=== PATIENT | male | born 1975 | race African-American/Black ===

== ENCOUNTER 2019-07-09 12:32 | Inpatient (IN) | payer OTHER ==
[2019-07-09] MEDS ORDERED: ACETAMINOPHEN TAB 500 MG TAB PO STA (12:56)
[2019-07-09] MEDS ORDERED: ALBUTEROL HFA INHALER INHALATION STA (12:56)
[2019-07-09] MEDS ORDERED: ACETAMINOPHEN TAB 500 MG TAB PO PRN (12:56)
--- NOTE | 2019-07-09 12:59 | ED ---
General Adult HPI - General Chief complaint: Shortness of Breath Stated complaint: SOB Time Seen by Provider: 07/09/19 12:38 Source: patient, RN notes reviewed Mode of arrival: ambulatory Limitations: no limitations - History of Present Illness Initial comments: Patient is a pleasant 43-year-old male presenting to the emergency Department with complaints of fatigue and chills and dyspnea. Onset of symptoms was yesterday. Patient states he was just released from nursing home and has been exposed to coronavirus. Patient states minimal cough. Patient does have history of asthma. Occasional wheeze. No leg pain or leg swelling. Patient feels somewhat achy throughout. - Related Data Home Medications Medication Instructions Recorded Confirmed No Known Home Medications 07/09/19 07/09/19 Allergies Allergy/AdvReac Type Severity Reaction Status Date / Time Penicillins Allergy Swelling Verified 07/09/19 14:00 Review of Systems ROS Statement: Those systems with pertinent positive or pertinent negative responses have been documented in the HPI. ROS Other: All systems not noted in ROS Statement are negative. Constitutional: Reports: as per HPI, fever, chills Eyes: Denies: eye pain ENT: Denies: ear pain Respiratory: Reports: as per HPI, cough, dyspnea Cardiovascular: Denies: chest pain Endocrine: Reports: fatigue Gastrointestinal: Denies: abdominal pain Genitourinary: Denies: dysuria Musculoskeletal: Denies: back pain Skin: Denies: rash Neurological: Denies: weakness Past Medical History Past Medical History: Asthma History of Any Multi-Drug Resistant Organisms: None Reported Additional Past Surgical History / Comment(s): dental surgery. Smoking Status: Former smoker Past Alcohol Use History: None Reported Past Drug Use History: None Reported General Exam Limitations: no limitations General appearance: alert Head exam: Present: normocephalic Eye exam: Present: normal appearance Neck exam: Present: normal inspection Respiratory exam: Present: normal lung sounds bilaterally Cardiovascular Exam: Present: tachycardia GI/Abdominal exam: Present: soft. Absent: tenderness Extremities exam: Present: normal inspection. Absent: pedal edema, calf tenderness Neurological exam: Present: alert Psychiatric exam: Present: normal affect, normal mood Skin exam: Present: normal color Course Vital Signs 07/09/19 07/09/19 07/09/19 12:33 14:34 15:48 Temperature 100.4 F H 100.1 F H Pulse Rate 125 H 122 H 113 H Respiratory 22 20 20 Rate Blood Pressure 137/93 110/76 158/90 O2 Sat by Pulse 93 L 94 L 90 L Oximetry 07/09/19 15:49 Temperature Pulse Rate Respiratory Rate Blood Pressure O2 Sat by Pulse 93 L Oximetry EKG Findings - EKG Comments: EKG Findings:: Sinus tachycardia 127. ND 144. QRS 76. QT really. QTC 447. Normal axis. Normal QRS. No acute ST change. Medical Decision Making - Medical Decision Making Patient tested negative for Coronavirus however clinically there is still some concern for this. Chest x-ray is suspicious for pneumonia without evidence on computed tomography scan. There is questionable pulmonary embolism on computed tomography scan which presents a clouded diagnostic pitcher. Case was discussed with Dr. Kumari on-call for [facility] who will admit for hospital call. Pulmonary will be consult at for further evaluation. Patiently placed on antibiotics and anticoagulation in the meantime. Patient is reevaluated and updated. Patient still is tachycardic with heart rate 122. Patient also still has increased respiratory rate. - Lab Data Result diagrams: 07/09/19 13:15 07/09/19 13:15 Lab Results 07/09/19 07/09/19 07/09/19 Range/Units 13:15 13:15 13:15 WBC 18.9 H (3.8-10.6) k/uL RBC 5.74 (4.30-5.90) m/uL Hgb 16.1 (13.0-17.5) gm/dL Hct 49.9 (39.0-53.0) % MCV 86.9 (80.0-100.0) fL MCH 28.1 (25.0-35.0) pg MCHC 32.3 (31.0-37.0) g/dL RDW 13.0 (11.5-15.5) % Plt Count 399 (150-450) k/uL Neutrophils % 88 % Lymphocytes % 5 % Monocytes % 3 % Eosinophils % 2 % Basophils % 0 % Neutrophils # 16.7 H (1.3-7.7) k/uL Lymphocytes # 0.9 L (1.0-4.8) k/uL Monocytes # 0.6 (0-1.0) k/uL Eosinophils # 0.5 (0-0.7) k/uL Basophils # 0.1 (0-0.2) k/uL PT 10.5 (9.0-12.0) sec INR 1.0 (<1.2) APTT 25.2 (22.0-30.0) sec D-Dimer 0.95 H (<0.60) mg/L FEU Sodium 139 (137-145) mmol/L Potassium 4.4 (3.5-5.1) mmol/L Chloride 101 (98-107) mmol/L Carbon Dioxide 29 (22-30) mmol/L Anion Gap 9 mmol/L BUN 9 (9-20) mg/dL Creatinine 1.03 (0.66-1.25) mg/dL Est GFR (CKD-EPI)AfAm >90 (>60 ml/min/1.73 sqM) Est GFR (CKD-EPI)NonAf 90 (>60 ml/min/1.73 sqM) Glucose 114 H (74-99) mg/dL Plasma Lactic Acid Masood (0.7-2.0) mmol/L Calcium 9.8 (8.4-10.2) mg/dL Magnesium 2.0 (1.6-2.3) mg/dL Total Bilirubin 1.0 (0.2-1.3) mg/dL AST 28 (17-59) U/L ALT 20 (4-49) U/L Alkaline Phosphatase 58 (38-126) U/L Lactate Dehydrogenase 567 (313-618) U/L C-Reactive Protein 33.0 H (<10.0) mg/L Total Protein 8.0 (6.3-8.2) g/dL Albumin 4.7 (3.5-5.0) g/dL Coronavirus (PCR) (Not Detectd) 07/09/19 07/09/19 Range/Units 13:15 13:15 WBC (3.8-10.6) k/uL RBC (4.30-5.90) m/uL Hgb (13.0-17.5) gm/dL Hct (39.0-53.0) % MCV (80.0-100.0) fL MCH (25.0-35.0) pg MCHC (31.0-37.0) g/dL RDW (11.5-15.5) % Plt Count (150-450) k/uL Neutrophils % % Lymphocytes % % Monocytes % % Eosinophils % % Basophils % % Neutrophils # (1.3-7.7) k/uL Lymphocytes # (1.0-4.8) k/uL Monocytes # (0-1.0) k/uL Eosinophils # (0-0.7) k/uL Basophils # (0-0.2) k/uL PT (9.0-12.0) sec INR (<1.2) APTT (22.0-30.0) sec D-Dimer (<0.60) mg/L FEU Sodium (137-145) mmol/L Potassium (3.5-5.1) mmol/L Chloride (98-107) mmol/L Carbon Dioxide (22-30) mmol/L Anion Gap mmol/L BUN (9-20) mg/dL Creatinine (0.66-1.25) mg/dL Est GFR (CKD-EPI)AfAm (>60 ml/min/1.73 sqM) Est GFR (CKD-EPI)NonAf (>60 ml/min/1.73 sqM) Glucose (74-99) mg/dL Plasma Lactic Acid Masood 1.7 (0.7-2.0) mmol/L Calcium (8.4-10.2) mg/dL Magnesium (1.6-2.3) mg/dL Total Bilirubin (0.2-1.3) mg/dL AST (17-59) U/L ALT (4-49) U/L Alkaline Phosphatase (38-126) U/L Lactate Dehydrogenase (313-618) U/L C-Reactive Protein (<10.0) mg/L Total Protein (6.3-8.2) g/dL Albumin (3.5-5.0) g/dL Coronavirus (PCR) Not Detected (Not Detectd) - Radiology Data Radiology results: report reviewed (Computed tomography scan of the chest is limited by motion artifact. Questionable filling defects left lower lobe as well as right lower lobe.), image reviewed (Chest x-ray shows left infrahilar infiltrate.) Critical Care Time Critical Care Time: Yes Total Critical Care Time: 32 Disposition Clinical Impression: Dyspnea Disposition: ADMITTED IP TO THIS [facility] Condition: Serious Is patient prescribed a controlled substance at d/c from ED?: No Referrals: None,Stated [Primary Care Provider] - 1-2 days Decision Time: 15:57
[2019-07-09 13:49] LABS: Basophils # (A) 0.1 k/uL (0-0.2); Basophils % (A) 0 %; Eosinophils # (A) 0.5 k/uL (0-0.7); Eosinophils % (A) 2 %; HCT 49.9 % (39.0-53.0); HGB 16.1 gm/dL (13.0-17.5); Lymphocytes # (A) 0.9 k/uL (1.0-4.8); Lymphocytes % (A) 5 %; MCH 28.1 pg (25.0-35.0); MCHC 32.3 g/dL (31.0-37.0); MCV 86.9 fL (80.0-100.0); Mean Platelet Volume 7.7; Monocytes # (A) 0.6 k/uL (0-1.0); Monocytes % (A) 3 %; Neutrophils # (A) 16.7 k/uL (1.3-7.7); Neutrophils % (A) 88 %; Platelet Count 399 k/uL (150-450); RBC 5.74 m/uL (4.30-5.90); WBC 18.9 k/uL (3.8-10.6)
[2019-07-09 14:02] LABS: ALT 20 U/L (4-49); AST 28 U/L (17-59); African American GFR (CKD) >90 (>60 ml/min/1.73 sqM); Albumin 4.7 g/dL (3.5-5.0); Alkaline Phosphatase 58 U/L (38-126); Anion Gap 9 mmol/L; Blood Urea Nitrogen 9 mg/dL (9-20); Calcium 9.8 mg/dL (8.4-10.2); Carbon Dioxide 29 mmol/L (22-30); Chloride 101 mmol/L (98-107); Glucose 114 mg/dL (74-99); LDH 567 U/L (313-618); Non-African American GFR(CKD) 90 (>60 ml/min/1.73 sqM); Potassium 4.4 mmol/L (3.5-5.1); Sodium 139 mmol/L (137-145)
--- NOTE | 2019-07-09 14:02 | XR ---
EXAMINATION TYPE: XR chest 1V portable DATE OF EXAM: 07/09/2019 COMPARISON: NONE HISTORY: Suspected COVID-19 pneumonia TECHNIQUE: Single frontal view of the chest is obtained. FINDINGS: Left infrahilar infiltrate noted. Correlate for COVID-19 pneumonia The cardiac silhouette size is within normal limits. The osseous structures are intact. IMPRESSION: 1. Left infrahilar infiltrate noted. Correlate for COVID-19 pneumonia
[2019-07-09 14:05] LABS: Partial Thromboplastin Time 25.2 sec (22.0-30.0); Prothrombin Time 10.5 sec (9.0-12.0)
[2019-07-09 14:10] LABS: D-Dimer 0.95 mg/L FEU (<0.60)
--- NOTE | 2019-07-09 15:37 | CT ---
EXAMINATION TYPE: CT angio chest DATE OF EXAM: 07/09/2019 COMPARISON: NONE HISTORY: Shortness of breath CT DLP: 324.2 mGycm. Automated Exposure Control for Dose Reduction was Utilized. CONTRAST: CTA scan of the thorax is performed with IV Contrast, patient injected with 100 mL of Isovue 370, pul monary embolism protocol. MIP Images are created on CT scanner and reviewed. FINDINGS: LUNGS: Evaluation for pulmonary nodules are markedly limited given extensive patient respiratory lópez on of the lungs. The lungs are grossly clear, there is no concerning parenchymal mass or nodule ident ified. There are trace pleural effusions bilaterally. No pneumothorax. The tracheobronchial tree is patent. MEDIASTINUM: There is satisfactory enhancement of the pulmonary artery and its branches, however ther e is extensive respiratory motion limiting evaluation. There are questionable filling defects in the segmental pulmonary artery to the left lower lobe as marked on the images and segmental as well as carty bsegmental pulmonary arteries to the right lower lobe marked on the images. No evidence of right hea rt strain on CT. There are no greater than 1 cm hilar or mediastinal lymph nodes. No cardiomegaly o r pericardial effusion is seen. Strand-like density in the anterior superior mediastinum most commonl y relates to residual thymic tissue. Bolus timing limits evaluation for coronary artery calcification s. No sizable coronary artery calcifications detected. Visualized portions of the thoracic aorta demo nstrates no dissection. OTHER: Low-attenuation of the liver most commonly seen in hepatic steatosis is identified. IMPRESSION: Extensive respiratory motion artifact limits evaluation. Given the respiratory motion the re are few equivocal incompletely obstructive filling defects in the segmental artery to the left low er lobe and subsegmental arteries to the right lower lobe. No central pulmonary embolism is seen nor evidence of right heart strain.
[2019-07-09] MEDS ORDERED: AZITHROMYCIN 500 MG in SODIUM CHLORIDE 0.9% 250 ML IVPB STA (16:01)
[2019-07-09] MEDS ORDERED: HEPARIN SODIUM,PORCINE 10,000 UNIT/ML 1 ML VIAL IV ONE (16:01)
[2019-07-09] MEDS ORDERED: IPRATROPIUM-ALBUTEROL 3 ML NEB INHALATION PRN (16:01)
[2019-07-09] MEDS ORDERED: PNEUMONIA PROTOCOL UTILIZED 1 EACH MISC PO PRN (16:01)
[2019-07-09] MEDS ORDERED: HEPARIN SODIUM,PORCINE 5,000 UNIT/ML 1 ML VIAL IV PRN (16:01)
[2019-07-09] MEDS ORDERED: LEVOFLOXACIN 750MG-D5W PMX 750 MG in DEXTROSE/WATER 1 150ML.BAG IVPB STA (16:04)
[2019-07-09] MEDS: HEPARIN SOD,PORK IN 0.45% NACL 25,000 UNIT in 0.45% NACL 1 250ML.BAG IV SCH (16:34)
[2019-07-09] MEDS ORDERED: LORazepam 2 MG/ML INJ IV PRN (17:46)
[2019-07-09] MEDS ORDERED: NALOXONE 0.4 MG/ML 1 ML VIAL IV PRN (17:46)
--- NOTE | 2019-07-09 17:48 | P.HPIM ---
History of Present Illness H&P Date: 07/09/19 Chief Complaint: Shortness of breath 43-year-old male with no past medical history presents to the ED for shortness of breath. Patient states that he was smoking a cigarette yesterday when he started to experience some shortness of breath. He is unable to describe his symptoms effectively. Patient reports smoking 1 pack of cigarettes daily for many years. Of note, patient reports recently being released from [facility]. Patient states that there was a coronavirus outbreak in [facility] during his stay there. He denies any headache, lower shavon edema, nausea or vomiting, fever or chills, cough, chest pain, palpitations or changes in urination or bowel habits. No changes in appetite or weight. He denies any dizziness, numbness/weakness/tingling of the extremities. In the ED, patient was noted to be febrile with T-max of 100.4 Fahrenheit, pulse of 125, O2 saturation of 90% on room air. CBC showed leukocytosis of 18.9. INR was 1. D-dimer was elevated at 0.95. CMP showed glucose of 114. Lactic acid was negative. CRP was elevated. LDH was negative. Coronavirus testing was negative. Chest x-ray showed left-sided infiltrate. CTA chest showed extensive artifact, equivocal incomplete filling defects, no central PE. Patient is admitted for anticipated greater than 48 hours admission for sepsis, possible pneumonia, elevated troponins, abnormal CTA chest with pulmonology consult. Review of Systems Pertinent positives and negatives as discussed in HPI, a complete review of systems was performed and all other systems are negative. Past Medical History Past Medical History: Asthma History of Any Multi-Drug Resistant Organisms: None Reported Additional Past Surgical History / Comment(s): dental surgery. Smoking Status: Former smoker Past Alcohol Use History: None Reported Past Drug Use History: None Reported Medications and Allergies Home Medications Medication Instructions Recorded Confirmed Type No Known Home Medications 07/09/19 07/09/19 History Allergies Allergy/AdvReac Type Severity Reaction Status Date / Time Penicillins Allergy Swelling Verified 07/09/19 14:00 Physical Exam Vitals: Vital Signs Temp Pulse Resp BP Pulse Ox 07/09/19 15:49 93 L 07/09/19 15:48 100.1 F H 113 H 20 158/90 90 L 07/09/19 14:34 122 H 20 110/76 94 L 07/09/19 12:33 100.4 F H 125 H 22 137/93 93 L Intake and Output 07/09/19 07/09/19 07/09/19 06:59 14:59 22:59 Other: Weight 81.647 kg General: [non toxic], [no distress], [appears at stated age] Derm: [warm], [dry] Head: [atraumatic], [normocephalic], [symmetric] Eyes: [EOMI], [no lid lag], [anicteric sclera] Mouth: [no lip lesion], [mucus membranes moist] Cardiovascular: [S1S2 reg], [tachycardic], [positive DP pulse bilateral], Lungs: [Decreased breath sounds bilateral], [no rhonchi, no rales] , [no accessory muscle use] Abdominal: [soft], [ nontender to palpation], [no guarding], [no appreciable organomegaly] Ext: [no gross muscle atrophy], [no edema], [no contractures] Neuro: [no focal neuro deficits] Psych: [Alert], [oriented], [appropriate affect] Results CBC & Chem 7: 07/09/19 13:15 07/09/19 13:15 Labs: Abnormal Lab Results - Last 24 Hours (Table) 07/09/19 07/09/19 07/09/19 Range/Units 13:15 13:15 13:15 WBC 18.9 H (3.8-10.6) k/uL Neutrophils # 16.7 H (1.3-7.7) k/uL Lymphocytes # 0.9 L (1.0-4.8) k/uL D-Dimer 0.95 H (<0.60) mg/L FEU Glucose 114 H (74-99) mg/dL C-Reactive Protein 33.0 H (<10.0) mg/L Assessment and Plan Assessment: Sepsis likely related to COVID versus bacterial pneumonia Elevated D-dimer Smoker Patient meets sepsis criteria. Leukocytosis. Tachycardic. Afebrile. Chest x- ray showing left lower lobe infiltrate. Lactic acid negative. Plans: Start levofloxacin IV. Follow sputum and blood cultures. Tylenol as needed for fe megha. Repeat coronavirus testing. Follow d-dimer, LDH, CPK, ferritin, CRP tomorrow morning. Follow pro-calcitonin. Start normal saline at 100 mL per hour. Albuterol inhaler as needed. Given recent onset of symptoms, and high risk given that he was in [facility] recently, despite negative COVID testing, start hydroxychloroquine. Droplet precautions. Follow pulmonology recommendations. Telemetry monitoring. Trend Troponin/EKG to rule out ACS. Repeat chest x-ray tomorrow. Equivocal for PE. Plans: Continue heparin drip pending pulmonology evaluation. Plans: Nicotine patch. DVT prophylaxis: Heparin Discussed with: [Patient] Anticipated discharge: [2-3 days] Anticipated discharge place: [Home] A total of [45] minutes was spent on the care of this complex patient more than 50% of the time was spent in counseling and care coordination. Patient with like his sons mother to be the decision maker if he can't make decisions for himself. Patient would like to be full code.
[2019-07-09 17:53] LABS: Ferritin 130.4 ng/mL (22.0-322.0)
[2019-07-09] MEDS ORDERED: LORazepam 2 MG/ML INJ IV STA (18:00)
[2019-07-09] MEDS: ALBUTEROL HFA INHALER INHALATION PRN ×2 (18:08→20:27)
[2019-07-09] MEDS ORDERED: IPRATROPIUM-ALBUTEROL 3 ML NEB INHALATION SCH (20:00)
[2019-07-09] MEDS: ALBUTEROL HFA INHALER INHALATION SCH (20:10)
[2019-07-09] MEDS: HYDROXYCHLOROQUINE SULFATE 200 MG TAB PO SCH (21:17)
[2019-07-09] MEDS: SODIUM CHLORIDE 0.9% 1,000 ML IV SCH (21:18)
[2019-07-09] MEDS: NICOTINE 21MG/24HR PATCH TRANSDERM SCH (21:19)
[2019-07-10] MEDS: ALBUTEROL HFA INHALER INHALATION SCH ×4 (02:52→21:13)
[2019-07-10 06:25] LABS: Basophils % (A) 0 %; Eosinophils # (A) 0.5 k/uL (0-0.7); Eosinophils % (A) 3 %; HCT 46.3 % (39.0-53.0); HGB 15.1 gm/dL (13.0-17.5); Lymphocytes # (A) 0.8 k/uL (1.0-4.8); Lymphocytes % (A) 4 %; MCH 28.7 pg (25.0-35.0); MCHC 32.6 g/dL (31.0-37.0); MCV 87.8 fL (80.0-100.0); Monocytes # (A) 0.7 k/uL (0-1.0); Monocytes % (A) 4 %; Neutrophils # (A) 17.3 k/uL (1.3-7.7); Neutrophils % (A) 89 %; Platelet Count 347 k/uL (150-450); RBC 5.27 m/uL (4.30-5.90); WBC 19.5 k/uL (3.8-10.6)
[2019-07-10] MEDS: SODIUM CHLORIDE 0.9% 1,000 ML IV SCH ×3 (06:39→20:55)
[2019-07-10 06:45] LABS: D-Dimer 2.83 mg/L FEU (<0.60); INR 1.2 (<1.2); Prothrombin Time 12.3 sec (9.0-12.0)
[2019-07-10 07:09] LABS: C Reactive Protein 173.3 mg/L (<10.0)
--- NOTE | 2019-07-10 08:18 | XR ---
EXAMINATION TYPE: XR chest 1V portable DATE OF EXAM: 07/10/2019 COMPARISON: 07/09/2019 HISTORY: Shortness of breath TECHNIQUE: Single frontal view of the chest is obtained. FINDINGS: There is no focal air space opacity, pleural effusion, or pneumothorax seen. Strand-like linear lingular atelectasis is minimal. The cardiac silhouette size is within normal limits. The os seous structures are intact. IMPRESSION: Minimal linear strand-like lingular atelectasis.
[2019-07-10] MEDS: HYDROXYCHLOROQUINE SULFATE 200 MG TAB PO SCH ×2 (08:53→20:54)
[2019-07-10] MEDS: NICOTINE 21MG/24HR PATCH TRANSDERM SCH (08:53)
[2019-07-10] MEDS: HEPARIN SOD,PORK IN 0.45% NACL 25,000 UNIT in 0.45% NACL 1 250ML.BAG IV SCH (08:58)
[2019-07-10 11:02] LABS: Ferritin 194.4 ng/mL (22.0-322.0)
[2019-07-10] MEDS ORDERED: MORPHINE SULFATE 2 MG/ML SYRINGE IVP STA (12:01)
[2019-07-10] MEDS: predniSONE 20 MG TAB PO SCH (12:06)
--- NOTE | 2019-07-10 12:06 | P.PN ---
Subjective Progress Note Date: 07/10/19 Principal diagnosis: COVID PNA Patient was seen and examined. No acute events overnight. Patient reports a slight improvement in his breathing but he continues to report shortness of breath. He denies any chest pain but complains of soreness around the sides of his abdomen from increased work of breathing. No nausea or vomiting. No fever or chills. Objective - Vital Signs Vital signs: Vital Signs Temp 99.6 F 07/10/19 08:00 Pulse 126 H 07/10/19 08:00 Resp 18 07/10/19 08:00 BP 165/94 07/10/19 08:00 Pulse Ox 95 07/10/19 08:00 Intake & Output 07/09/19 07/10/19 07/10/19 18:59 06:59 18:59 Intake Total 1968.421 135.648 Balance 1968.421 135.648 Weight 81.647 kg 81.5 kg Intake: Intake, IV Titration 1088.421 135.648 Amount Azithromycin 500 mg In 250 Sodium Chloride 0.9% 250 ml @ 250 mls/hr IVPB ONCE STA Rx#:[id number] Heparin Sod,Pork in 0.45% 88.421 135.648 NaCl 25,000 unit In 0.45 % NaCl 1 250ml.bag @ 18 UNITS/KG/HR 14.696 mls/hr IV .Q17H1M DELMY Rx#: [id number] Levofloxacin 750Mg-D5w 150 Pmx 750 mg In Dextrose/ Water 1 150ml.bag @ 100 mls/hr IVPB ONCE STA Rx#: [id number] Sodium Chloride 0.9% 1, 600 000 ml @ 100 mls/hr IV . Q10H DELMY Rx#:[id number] Oral 880 Other: # Voids 2 1 - Exam General: [non toxic], [appears dyspnea, unable to complete full sentences], [appears at stated age] Derm: [warm], [dry] Head: [atraumatic], [normocephalic], [symmetric] Eyes: [EOMI], [no lid lag], [anicteric sclera] Mouth: [no lip lesion], [mucus membranes moist] Cardiovascular: [S1S2 reg], [tachycardic], [positive DP pulse bilateral], Lungs: [Decreased breath sounds bilateral], [no rhonchi, no rales] , [no accessory muscle use] Abdominal: [soft], [ nontender to palpation], [no guarding], [no appreciable organomegaly] Ext: [no gross muscle atrophy], [no edema], [no contractures] Neuro: [no focal neuro deficits] Psych: [Alert], [oriented], [appropriate affect] - Labs CBC & Chem 7: 07/10/19 05:50 07/09/19 13:15 Labs: Abnormal Lab Results - Last 24 Hours (Table) 07/09/19 07/09/19 07/09/19 Range/Units 13:15 13:15 13:15 WBC 18.9 H (3.8-10.6) k/uL Neutrophils # 16.7 H (1.3-7.7) k/uL Lymphocytes # 0.9 L (1.0-4.8) k/uL PT (9.0-12.0) sec INR (<1.2) APTT (22.0-30.0) sec D-Dimer 0.95 H (<0.60) mg/L FEU Glucose 114 H (74-99) mg/dL Lactate Dehydrogenase (313-618) U/L C-Reactive Protein 33.0 H (<10.0) mg/L Procalcitonin (0.02-0.09) ng/mL 07/09/19 07/09/19 07/10/19 Range/Units 13:15 22:06 05:50 WBC 19.5 H (3.8-10.6) k/uL Neutrophils # 17.3 H (1.3-7.7) k/uL Lymphocytes # 0.8 L (1.0-4.8) k/uL PT (9.0-12.0) sec INR (<1.2) APTT 71.4 H (22.0-30.0) sec D-Dimer (<0.60) mg/L FEU Glucose (74-99) mg/dL Lactate Dehydrogenase (313-618) U/L C-Reactive Protein (<10.0) mg/L Procalcitonin 0.14 H (0.02-0.09) ng/mL 05/08/20 05/08/20 05/08/20 Range/Units 05:50 05:50 07:46 WBC (3.8-10.6) k/uL Neutrophils # (1.3-7.7) k/uL Lymphocytes # (1.0-4.8) k/uL PT 12.3 H (9.0-12.0) sec INR 1.2 H (<1.2) APTT 51.2 H (22.0-30.0) sec D-Dimer 2.83 H (<0.60) mg/L FEU Glucose (74-99) mg/dL Lactate Dehydrogenase 673 H (313-618) U/L C-Reactive Protein 173.3 H (<10.0) mg/L Procalcitonin (0.02-0.09) ng/mL Assessment and Plan Assessment: Sepsis likely related to COVID versus bacterial pneumonia Elevated D-dimer Smoker Patient meets sepsis criteria. Leukocytosis, worsened today. Tachycardic. T- max of 100.5 Fahrenheit but afebrile since admission. Chest x-ray showing left lower lobe infiltrate. Lactic acid negative. LDH elevated. CRP elevated. Pro-calcitonin elevated. Coronavirus testing negative. Troponins negative and ACS ruled out. Plans: Continue levofloxacin IV. Pulmonology is added prednisone and Symbicort. Follow sputum and blood cultures. Tylenol as needed for fever. Repeat coronavirus testing. Trend d-dimer, LDH, CPK, ferritin, CRP. Follow pro-calcitonin. Continue normal saline at 100 mL per hour. Albuterol inhaler as needed. Given recent onset of symptoms, and high risk given that he was in [facility] recently, despite negative COVID testing, continue hydroxychloroqu ine. Droplet precautions. Follow pulmonology recommendations. Telemetry monitoring. Equivocal for PE. Plans: Continue heparin drip pending pulmonology evaluation, especially given the increase in d-dimer from 0.95-2.83. Plans: Nicotine patch. [Patient being treated for pneumonia, bacterial versus coronavirus. He is pending clinical improvement. Likely DC in 2-3 days.]
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
[2019-07-10] MEDS ORDERED: AZITHROMYCIN 500 MG TAB PO SCH (16:02)
[2019-07-10] MEDS ORDERED: LEVOFLOXACIN 750MG-D5W PMX 750 MG in DEXTROSE/WATER 1 150ML.BAG IVPB SCH (17:00)
[2019-07-10] MEDS: SYMBICORT 160-4.5 MCG INHALER INHALATION SCH (21:13)
[2019-07-11] MEDS: ALBUTEROL HFA INHALER INHALATION SCH ×5 (00:02→21:09)
[2019-07-11] MEDS: HEPARIN SOD,PORK IN 0.45% NACL 25,000 UNIT in 0.45% NACL 1 250ML.BAG IV SCH ×2 (03:29→20:32)
[2019-07-11] MEDS: SYMBICORT 160-4.5 MCG INHALER INHALATION SCH ×2 (06:05→21:09)
[2019-07-11 07:39] LABS: Basophils % (A) 0 %; Eosinophils # (A) 0.5 k/uL (0-0.7); Eosinophils % (A) 3 %; HCT 42.7 % (39.0-53.0); HGB 14.2 gm/dL (13.0-17.5); Lymphocytes # (A) 1.5 k/uL (1.0-4.8); Lymphocytes % (A) 10 %; MCH 28.9 pg (25.0-35.0); MCHC 33.2 g/dL (31.0-37.0); MCV 86.9 fL (80.0-100.0); Monocytes # (A) 0.7 k/uL (0-1.0); Monocytes % (A) 5 %; Neutrophils # (A) 12.5 k/uL (1.3-7.7); Neutrophils % (A) 81 %; Platelet Count 366 k/uL (150-450); RBC 4.92 m/uL (4.30-5.90); RDW 12.9 % (11.5-15.5); WBC 15.3 k/uL (3.8-10.6)
[2019-07-11 07:47] LABS: INR 1.2 (<1.2); Partial Thromboplastin Time 36.7 sec (22.0-30.0); Prothrombin Time 11.7 sec (9.0-12.0)
[2019-07-11] MEDS: HYDROXYCHLOROQUINE SULFATE 200 MG TAB PO SCH ×2 (09:00→20:30)
[2019-07-11] MEDS: predniSONE 20 MG TAB PO SCH (09:00)
[2019-07-11] MEDS ORDERED: predniSONE 20 MG TAB PO SCH (09:00)
[2019-07-11] MEDS: NICOTINE 21MG/24HR PATCH TRANSDERM SCH (09:00)
--- NOTE | 2019-07-11 12:24 | P.PN ---
Subjective Progress Note Date: 07/11/19 Principal diagnosis: sob Patient still having cough and shortness of breath. No chest pain. No fevers or chills. No overnight event. Objective - Vital Signs Vital signs: Vital Signs Temp 98.6 F 07/11/19 11:10 Pulse 102 H 07/11/19 11:10 Resp 18 07/11/19 11:10 BP 134/88 07/11/19 11:10 Pulse Ox 98 07/11/19 11:10 Intake & Output 07/10/19 07/11/19 07/11/19 18:59 06:59 18:59 Intake Total 330.243 5137.902 72.505 Balance 705.078 0564.902 72.505 Intake: Intake, IV Titration 096.131 4542.902 72.505 Amount Heparin Sod,Pork in 0.45% 135.648 241.902 72.505 NaCl 25,000 unit In 0.45 % NaCl 1 250ml.bag @ 18 UNITS/KG/HR 14.696 mls/hr IV .Q17H1M [facility] Rx#: [id number] Levofloxacin 750Mg-D5w 150 Pmx 750 mg In Dextrose/ Water 1 150ml.bag @ 100 mls/hr IVPB Q24H [facility] Rx#: [id number] Sodium Chloride 0.9% 1, 800 000 ml @ 100 mls/hr IV . Q10H [facility] Rx#:[id number] Oral 360 480 Other: # Voids 1 2 - Exam Constitutional: No acute distress, conversant, pleasant Eyes:Anicteric sclerae, moist conjunctiva, no lid-lag, PERRLA, ENMT: Oropharynx clear, no erythema, exudates Neck: Supple, FROM, no masses, or JVD, No carotid bruits, No thyromegaly Lungs: Diminished breath sounds bilaterally, severe wheezing and rhonchi. Clear to percussion, Normal respiratory effort, no accessory muscle use Cardiovascular: Heart regular in rate and rhythm, No murmurs, gallops, or rubs, No peripheral edema Abdominal: Soft, Nontender, no guarding, rebound or rigidity, Normoactive bowel sounds, No hepatomegaly, No splenomegaly, No palpable mass Skin: Normal temperature, tone, texture, turgor, no induration, No subcutaneous nodules, No rash, lesions, No ulcers Extremities: No digital cyanosis, No clubbing, Pedal pulses intact and symme trical, Radial pulses intact and symmetrical, No calf tenderness Psychiatric: Alert and oriented to person, place and time, appropriate affect, intact judgement Neuro: Muscles Strength 5/5 in all 4 extremities, Sensation to light touch grossly present throughout, Cranial nerves II-XII grossly intact, no focal sensory deficits - Labs CBC & Chem 7: 07/11/19 06:54 07/09/19 13:15 Labs: Abnormal Lab Results - Last 24 Hours (Table) 07/11/19 07/11/19 Range/Units 06:54 06:54 WBC 15.3 H (3.8-10.6) k/uL Neutrophils # 12.5 H (1.3-7.7) k/uL INR 1.2 H (<1.2) APTT 36.7 H (22.0-30.0) sec Microbiology - Last 24 Hours (Table) 07/11/19 00:04 Sputum Culture - Preliminary Sputum 07/09/19 13:15 Blood Culture - Preliminary Blood No Growth after 24 hours Assessment and Plan Plan: Acute hypoxic respiratory failure Sepsis likely related to COVID versus bacterial pneumonia Pulmonary embolus Smoker Continue Levaquin IV Continue heparin IV Oxygen as needed Increase albuterol frequency to every 4 hours Continue Symbicort and prednisone Seen by pulmonary Patient Follow sputum and blood cultures. Tylenol as needed for fever. Continue normal saline at 100 mL per hour. continue hydroxychloroquine. Droplet precautions. Nicotine patch.
--- NOTE | 2019-07-11 12:58 | P.PN ---
Subjective Progress Note Date: 07/11/19 Principal diagnosis: Chest pain, shortness of breath This is a very pleasant 43-year-old gentleman who was recently [facility]. He presented to the emergency room here on 07/09/2019 with complaints of increasing shortness of breath, chest pain, fever and chills. His Coreg 19 testing was negative. He does have a history of asthma and having some asthma-like symptoms. He is having some end expiratory wheeze and dyspnea with exertion. He is better today compared to yesterday. Maintaining good O2 saturations in the 90s on 2 L/m per nasal cannula. He's been afebrile. Slightly tachycardic. Sputum culture pending. Blood culture reveals no growth. White count 15.3. Hemoglobin 14.2. INR 1.2. His inflammatory markers were elevated. He is treated as a suspected CoVID19 and remains on Plaquenil, prednisone. He is on his Symbicort and albuterol. NicoDerm patch in place. Antibiotics in form of Levaquin. Objective - Vital Signs Vital signs: Vital Signs Temp 98.6 F 07/11/19 11:10 Pulse 102 H 07/11/19 11:10 Resp 18 07/11/19 11:10 BP 134/88 07/11/19 11:10 Pulse Ox 98 07/11/19 11:10 Intake & Output 07/10/19 07/11/19 07/11/19 18:59 06:59 18:59 Intake Total 028.763 9280.902 72.505 Balance 535.653 2909.902 72.505 Intake: Intake, IV Titration 105.601 3525.902 72.505 Amount Heparin Sod,Pork in 0.45% 135.648 241.902 72.505 NaCl 25,000 unit In 0.45 % NaCl 1 250ml.bag @ 18 UNITS/KG/HR 14.696 mls/hr IV .Q17H1M [facility] Rx#: [id number] Levofloxacin 750Mg-D5w 150 Pmx 750 mg In Dextrose/ Water 1 150ml.bag @ 100 mls/hr IVPB Q24H [facility] Rx#: [id number] Sodium Chloride 0.9% 1, 800 000 ml @ 100 mls/hr IV . Q10H [facility] Rx#:[id number] Oral 360 480 Other: # Voids 1 2 - Exam GENERAL EXAM: Alert, active, pleasant 43-year-old gentleman, on 2 L nasal cannula comfortable in no apparent distress. HEAD: Normocephalic. EYES: Normal reaction of pupils, equal size. NOSE: Clear with pink turbinates. THROAT: No erythema or exudates. NECK: No masses, no JVD. CHEST: No chest wall deformity. LUNGS: Equal air entry with end expiratory wheeze, diminished CVS: S1 and S2 normal with no audible murmur, regular rhythm. ABDOMEN: No hepatosplenomegaly, normal bowel sounds, no guarding or rigidity. SPINE: No scoliosis or deformity SKIN: No rashes CENTRAL NERVOUS SYSTEM: No focal deficits, tone is normal in all 4 extremities. EXTREMITIES: There is no peripheral edema. No clubbing, no cyanosis. Peripheral pulses are intact. - Labs CBC & Chem 7: 07/11/19 06:54 07/09/19 13:15 Labs: Abnormal Lab Results - Last 24 Hours (Table) 07/11/19 07/11/19 Range/Units 06:54 06:54 WBC 15.3 H (3.8-10.6) k/uL Neutrophils # 12.5 H (1.3-7.7) k/uL INR 1.2 H (<1.2) APTT 36.7 H (22.0-30.0) sec Microbiology - Last 24 Hours (Table) 07/11/19 00:04 Sputum Culture - Preliminary Sputum 07/09/19 13:15 Blood Culture - Preliminary Blood No Growth after 24 hours Assessment and Plan Assessment: Acute hypoxic respiratory failure secondary to an acute exacerbation of mild intermittent chronic bronchial asthma, possible bilateral lower lobe pulmonary emboli, suspected CoVID19 infection though negative on nasopharyngeal swab. Recently released from incarceration after 8 years for assault charge History of intermittent mild chronic bronchial asthma Chronic and ongoing tobacco dependence Plan: The patient was seen and evaluated by Dr. Morel He is improved today compared to yesterday Continue the current treatment plan To be transitioned to oral anticoagulation We'll continue to follow I, the cosigning physician, performed a history & physical examination of the patient. Lungs sounds with bilateral end expiratory wheeze, diminished Maintaining good O2 saturations in the 90s on 2 L/m per nasal cannula. I discussed the assessment and plan of care with my nurse practitioner, Trina Castro. I attest to the above note as dictated by her.
[2019-07-11] MEDS: SODIUM CHLORIDE 0.9% 1,000 ML IV SCH ×2 (14:09→20:32)
[2019-07-11] MEDS: LEVOFLOXACIN 750 MG TAB PO SCH (16:00)
[2019-07-12] MEDS: ALBUTEROL HFA INHALER INHALATION SCH ×7 (00:49→23:23)
[2019-07-12] MEDS: SODIUM CHLORIDE 0.9% 1,000 ML IV SCH (04:28)
[2019-07-12 07:02] LABS: INR 1.1 (<1.2); Partial Thromboplastin Time 56.1 sec (22.0-30.0); Prothrombin Time 11.1 sec (9.0-12.0)
[2019-07-12 07:05] LABS: ALT 32 U/L (4-49); AST 30 U/L (17-59); African American GFR (CKD) >90 (>60 ml/min/1.73 sqM); Albumin 2.8 g/dL (3.5-5.0); Alkaline Phosphatase 34 U/L (38-126); Anion Gap 3 mmol/L; Blood Urea Nitrogen 13 mg/dL (9-20); Calcium 8.3 mg/dL (8.4-10.2); Carbon Dioxide 28 mmol/L (22-30); Chloride 108 mmol/L (98-107); Glucose 104 mg/dL (74-99); Magnesium 2.1 mg/dL (1.6-2.3); Non-African American GFR(CKD) >90 (>60 ml/min/1.73 sqM); Phosphorus 3.2 mg/dL (2.5-4.5); Potassium 3.8 mmol/L (3.5-5.1); Sodium 139 mmol/L (137-145); Total Bilirubin 0.2 mg/dL (0.2-1.3); Total Protein 5.6 g/dL (6.3-8.2)
[2019-07-12 07:12] LABS: Basophils % (A) 0 %; Eosinophils # (A) 0.7 k/uL (0-0.7); Eosinophils % (A) 5 %; HCT 38.5 % (39.0-53.0); HGB 12.6 gm/dL (13.0-17.5); Lymphocytes # (A) 2.5 k/uL (1.0-4.8); Lymphocytes % (A) 18 %; MCH 28.7 pg (25.0-35.0); MCHC 32.6 g/dL (31.0-37.0); Mean Platelet Volume 8.4; Monocytes # (A) 0.8 k/uL (0-1.0); Monocytes % (A) 6 %; Neutrophils # (A) 9.8 k/uL (1.3-7.7); Neutrophils % (A) 70 %; Platelet Count 399 k/uL (150-450); RBC 4.38 m/uL (4.30-5.90); RDW 13.2 % (11.5-15.5); WBC 13.9 k/uL (3.8-10.6)
[2019-07-12] MEDS: SYMBICORT 160-4.5 MCG INHALER INHALATION SCH ×2 (08:08→19:31)
[2019-07-12] MEDS: NICOTINE 21MG/24HR PATCH TRANSDERM SCH (09:26)
[2019-07-12] MEDS: HYDROXYCHLOROQUINE SULFATE 200 MG TAB PO SCH (09:26)
[2019-07-12] MEDS: predniSONE 20 MG TAB PO SCH (09:26)
[2019-07-12] MEDS: HEPARIN SOD,PORK IN 0.45% NACL 25,000 UNIT in 0.45% NACL 1 250ML.BAG IV SCH (11:29)
--- NOTE | 2019-07-12 11:52 | P.PN ---
Subjective Progress Note Date: 07/12/19 Principal diagnosis: sob Patient is currently feeling better, no shortness of breath. No chest pain. No fevers or chills. No overnight event. He is currently down to 1 L of oxygen. Objective - Vital Signs Vital signs: Vital Signs Temp 97.5 F L 07/12/19 08:00 Pulse 89 07/12/19 11:43 Resp 16 07/12/19 11:43 BP 128/82 07/12/19 11:42 Pulse Ox 99 07/12/19 11:42 Intake & Output 07/11/19 07/12/19 07/12/19 18:59 06:59 18:59 Intake Total 126.830 3946.004 244.119 Balance 976.427 8940.004 244.119 Weight 81.5 kg Intake: Intake, IV Titration 672.505 969.004 244.119 Amount Heparin Sod,Pork in 0.45% 72.505 169.004 244.119 NaCl 25,000 unit In 0.45 % NaCl 1 250ml.bag @ 18 UNITS/KG/HR 14.696 mls/hr IV .Q17H1M [facility] Rx#: [id number] Sodium Chloride 0.9% 1, 600 800 000 ml @ 100 mls/hr IV . Q10H [facility] Rx#:[id number] Oral 840 Other: # Voids 1 2 - Exam Constitutional: No acute distress, conversant, pleasant Eyes:Anicteric sclerae, moist conjunctiva, no lid-lag, PERRLA, ENMT: Oropharynx clear, no erythema, exudates Neck: Supple, FROM, no masses, or JVD, No carotid bruits, No thyromegaly Lungs: Diminished breath sounds bilaterally, severe wheezing and rhonchi. Clear to percussion, Normal respiratory effort, no accessory muscle use Cardiovascular: Heart regular in rate and rhythm, No murmurs, gallops, or rubs, No peripheral edema Abdominal: Soft, Nontender, no guarding, rebound or rigidity, Normoactive bowel sounds, No hepatomegaly, No splenomegaly, No palpable mass Skin: Normal temperature, tone, texture, turgor, no induration, No subcutaneous nodules, No rash, lesions, No ulcers Extremities: No digital cyanosis, No clubbing, Pedal pulses intact and symmetrical, Radial pulses intact and symmetrical, No calf tenderness Psychiatric: Alert and oriented to person, place and time, appropriate affect, intact judgement Neuro: Muscles Strength 5/5 in all 4 extremities, Sensation to light touch grossly present throughout, Cranial nerves II-XII grossly intact, no focal sensory deficits - Labs CBC & Chem 7: 07/12/19 06:05 07/12/19 06:05 Labs: Abnormal Lab Results - Last 24 Hours (Table) 07/11/19 07/12/19 07/12/19 Range/Units 19:23 06:05 06:05 WBC 13.9 H (3.8-10.6) k/uL Hgb 12.6 L (13.0-17.5) gm/dL Hct 38.5 L (39.0-53.0) % Neutrophils # 9.8 H (1.3-7.7) k/uL APTT 40.6 H (22.0-30.0) sec Chloride 108 H (98-107) mmol/L Glucose 104 H (74-99) mg/dL Calcium 8.3 L (8.4-10.2) mg/dL Alkaline Phosphatase 34 L (38-126) U/L Total Protein 5.6 L (6.3-8.2) g/dL Albumin 2.8 L (3.5-5.0) g/dL 07/12/19 Range/Units 06:10 WBC (3.8-10.6) k/uL Hgb (13.0-17.5) gm/dL Hct (39.0-53.0) % Neutrophils # (1.3-7.7) k/uL APTT 56.1 H (22.0-30.0) sec Chloride (98-107) mmol/L Glucose (74-99) mg/dL Calcium (8.4-10.2) mg/dL Alkaline Phosphatase (38-126) U/L Total Protein (6.3-8.2) g/dL Albumin (3.5-5.0) g/dL Microbiology - Last 24 Hours (Table) 07/09/19 13:15 Blood Culture - Preliminary Blood No Growth after 48 hours 07/11/19 00:04 Gram Stain - Final Sputum Sputum Culture - Final Assessment and Plan Plan: Acute hypoxic respiratory failure Sepsis likely related to COVID versus bacterial pneumonia Pulmonary embolus Smoker Continue Levaquin IV Switch anticoagulation to oral, start xarelto, discontinue heparin Oxygen as needed--try to wean off Increased albuterol frequency to every 4 hours Continue Symbicort and prednisone Sputum and blood cultures negative. Tylenol as needed for fever. D/c normal saline D/c hydroxychloroquine. Nicotine patch.
--- NOTE | 2019-07-12 11:57 | PN ---
PROGRESS NOTE PULMONARY/CRITICAL CARE PROGRESS NOTE: DATE OF SERVICE: July 12, 2019. INTERVAL HISTORY: This is a 43-year-old black male who was admitted to the hospital through the emergency department on July 08. He came in with increasing shortness of breath, chest pain, fever and chills. His Covid-19 testing was negative. The patient does have asthma and feels like his asthma is a bit active. In addition, the patient had a CT angiogram which suggested some bilateral lower lobe pulmonary emboli. The patient was recently in [facility] for about 8 years and got out recently. The patient is feeling much better. He has been weaned down to 1 L. He states he no longer feels short of breath when he exerts himself. He does not have a doctor in this area. PHYSICAL EXAMINATION: VITAL SIGNS: Current vital signs are reviewed temperature 97.5 heart rate 91, respiratory rate 16, blood pressure 135/79. Mean 97 and 2 L saturation 97%, 1 L saturation 97%. GENERAL: Appears in no acute distress. HEENT: Examination is grossly unremarkable. Mucous membranes are moist. Nasal O2 noted. NECK: Supple. Full range of motion. No adenopathy or thyromegaly. Neck veins are flat. CARDIOVASCULAR: Examination reveals a regular rhythm and rate. S1, S2 normal. Heart rate 84 beats per minute. LUNGS: Some mild end/expiratory wheezes. Breath sounds are diminished. ABDOMEN: Soft. Bowel sounds are heard. EXTREMITIES are intact. No cyanosis, clubbing, or edema. SKIN: Without rash. NEUROLOGIC: Examination is brief but nonfocal. LABS: Reviewed. White count 13.9, hemoglobin 12.6, hematocrit 38.5, platelet count 399,000. The patient remains on IV heparin. PTT is 56.1. Sodium 139, potassium 3.8, chloride 108, CO2 28, BUN and creatinine were normal. The rest of the labs look okay. Microbiology is negative including sputum and blood. No recent chest x-ray to report. MEDICATIONS: Reviewed. The patient is on albuterol inhaler, Symbicort, prednisone, hydroxychloroquine, Levaquin as well as a few other medications including Ativan, Narcan nicotine patch, and Tylenol. ASSESSMENT: 1. Hypoxemic respiratory failure secondary to asthma exacerbation, possible bilateral lower lobe pulmonary emboli, and suspected but not proven Covid-19 infection. Nasopharyngeal swab was negative. The patient is improved. 2. Recent release from incarceration after 8 years with possible exposure to Covid-19 patients. 3. History of intermittent chronic bronchial asthma. 4. History of chronic and ongoing tobacco dependence. PLAN: Currently, the patient is doing much better. He remains on IV heparin. His other medications are delineated. He is feeling much improved. He is down to 1 L. He is not feeling short of breath when he exerts himself. His medications are appropriate. We will continue to follow. No additional recommendations are made. Hopefully the Primary Service will switch him from IV heparin over to an oral anticoagulant either a vitamin K antagonist for a factor Xa inhibitor. MMODL / IJN: [id number] /
[2019-07-12] MEDS: RIVAROXABAN 15 MG TAB PO SCH ×2 (12:02→17:02)
[2019-07-12] MEDS: LEVOFLOXACIN 750 MG TAB PO SCH (17:02)
[2019-07-13] MEDS: ALBUTEROL HFA INHALER INHALATION SCH ×3 (04:21→11:33)
[2019-07-13] MEDS: RIVAROXABAN 15 MG TAB PO SCH (06:24)
[2019-07-13] MEDS: SYMBICORT 160-4.5 MCG INHALER INHALATION SCH (07:31)
[2019-07-13 08:10] VITALS: BP 144/83; PULSE 95; RESP 18; TEMP 97.9
[2019-07-13] MEDS: predniSONE 20 MG TAB PO SCH (08:52)
--- NOTE | 2019-07-13 10:39 | US ---
EXAMINATION TYPE: US venous doppler duplex LE DATE OF EXAM: 07/13/2019 10:22 AM COMPARISON: NONE CLINICAL HISTORY: rule out DVT. On heparin, no leg pain SIDE PERFORMED: Bilateral TECHNIQUE: The lower extremity deep venous system is examined utilizing real time linear array sonog netta with graded compression, doppler sonography and color-flow sonography. VESSELS IMAGED: External Iliac Vein (EIV) Common Femoral Vein Deep Femoral Vein Greater Saphenous Vein * Femoral Vein Popliteal Vein Small Saphenous Vein * Proximal Calf Veins (* superficial vessels) Right Leg: Negative for DVT Left Leg: Negative for DVT IMPRESSION: No evidence for DVT.
--- NOTE | 2019-07-13 11:16 | P.DS ---
Providers Date of admission: 07/09/19 16:01 Expected date of discharge: 07/13/19 Attending physician: Trinidad Castrejon MD Consults: 07/09/19 16:03 Consult Physician Urgent Consulting Provider: Srikanth Morel Consult Reason/Comments: dyspnea, eval for PE,Lau Do you want consulting provider notified?: Yes Primary care physician: Stated None Hospital Course: 43-year-old male with no past medical history presents to the ED for shortness of breath. Patient states that he was smoking a cigarette yesterday when he started to experience some shortness of breath. He is unable to describe his symptoms effectively. Patient reports smoking 1 pack of cigarettes daily for many years. Of note, patient reports recently being released from [facility]. Patient states that there was a coronavirus outbreak in [facility] during his stay there. He denies any headache, lower shavon edema, nausea or vomiting, fever or chills, cough, chest pain, palpitations or changes in urination or bowel habits. No changes in appetite or weight. He denies any dizziness, numbness/weakness/tingling of the extremities. In the ED, patient was noted to be febrile with T-max of 100.4 Fahrenheit, pulse of 125, O2 saturation of 90% on room air. On exam he was very tight in the chest with limited breath sounds bilaterally and scattered wheezing. CBC showed leukocytosis of 18.9. INR was 1. D-dimer was elevated at 0.95. CMP showed glucose of 114. Lactic acid was negative. CRP was elevated. LDH was negative. Coronavirus testing was negative. Chest x-ray showed left-sided infiltrate. C TA chest showed extensive artifact, equivocal incomplete filling defects, no central PE. He was started on antibiotics to cover community-acquired pneumonia. Bronchodilators and steroids were also given. Patient was also treated with IV heparin initially that was switched to xarelto. Bilateral lower extremities venous Doppler was negative for DVT. Patient was seen in consultation with pulmonary service who agreed with this management. Symptomatically and objectively by listening to his chest he continued to show improvement with this treatment. He initially required oxygen but was even tually able to wean off from it. White blood cell count continued to trend down. Troponin was cycled and remained negative. The rest of his blood work looked reassuring. Upon discharge his discharge medications were forwarded to the pharmacy, it seems that all of them are currently covered with his insurance. Patient will need to follow up with primary care physician in order to renew the medications prescriptions. He will be discharged home in stable condition. Time for discharge 35 min Patient Condition at Discharge: Serious Plan - Discharge Summary Discharge Rx Participant: Yes New Discharge Prescriptions: New Levofloxacin [Levaquin] 750 mg PO Q24H 7 Days #7 tab methylPREDNISolone Dose Pack [Medrol Dose Pack] 4 mg PO DIRECTED #21 package Budesonide-Formot 160-4.5 Mcg [Symbicort 160-4.5 Mcg Inhaler] 2 puff INHALATION RT-BID 30 Days #1 inh Acetaminophen Tab [Tylenol] 1,000 mg PO Q6HR PRN tab PRN Reason: Fever>101 Albuterol Inhaler [Ventolin Hfa Inhaler] 2 puff INHALATION RT-Q6H PRN 30 Days #1 inh PRN Reason: Shortness Of Breath Or Wheezing Rivaroxaban [Xarelto] 15 mg PO BID-W/MEALS #20 tab Albuterol Sulfate [Proair Hfa] 1 - 2 puff INHALATION Q6HR PRN 30 Days #1 inhaler PRN Reason: Shortness Of Breath Discharge Medication List Acetaminophen Tab [Tylenol] 1,000 mg PO Q6HR PRN tab 07/13/19 [Rx] Albuterol Inhaler [Ventolin Hfa Inhaler] 2 puff INHALATION RT-Q6H PRN 30 Days #1 inh 07/13/19 [Rx] Albuterol Sulfate [Proair Hfa] 1 - 2 puff INHALATION Q6HR PRN 30 Days #1 inhaler 07/13/19 [Rx] Budesonide-Formot 160-4.5 Mcg [Symbicort 160-4.5 Mcg Inhaler] 2 puff INHALATION RT-BID 30 Days #1 inh 07/13/19 [Rx] Levofloxacin [Levaquin] 750 mg PO Q24H 7 Days #7 tab 07/13/19 [Rx] Rivaroxaban [Xarelto] 15 mg PO BID-W/MEALS #20 tab 07/13/19 [Rx] methylPREDNISolone Dose Pack [Medrol Dose Pack] 4 mg PO DIRECTED #21 package 07/13/19 [Rx] Follow up Appointment(s)/Referral(s): Sona Choi MD [STAFF PHYSICIAN] - 08/05/19 2:15 pm (Follow up with travel accommodation inspector.) None,Stated [Primary Care Provider] - 1-2 days (Please find a primary physician to follow up after being discharged from the hospital.) Patient Instructions/Handouts: Pulmonary Embolism ([facility]), Pneumonia ([facility]), Safe Use of Anticoagulants ([facility])
--- NOTE | 2019-07-13 11:18 | P.PN ---
Subjective Progress Note Date: 07/13/19 Principal diagnosis: Shortness of breath On 07/13/2019 patient seen in follow-up on selective care unit, she is calm and comfortable, in no acute distress, room air pulse ox is 97%. No worsening dyspnea, vital signs are stable, no fever or chills, he has been started on several toes for possibility of pulmonary embolism, bilateral lower extremity Dopplers were negative for DVT. No specific complaints, lung sounds are clear, no rhonchi no wheezing, vital signs are stable, no new labs today. Objective - Vital Signs Vital signs: Vital Signs Temp 97.9 F 07/13/19 08:00 Pulse 95 07/13/19 08:00 Resp 18 07/13/19 08:00 BP 144/83 07/13/19 08:00 Pulse Ox 97 07/13/19 08:00 Intake & Output 07/12/19 07/13/19 07/13/19 18:59 06:59 18:59 Intake Total 844.119 240 120 Output Total 180 Balance 844.119 60 120 Weight 81.7 kg Intake: Intake, IV Titration 844.119 Amount Heparin Sod,Pork in 0.45% 244.119 NaCl 25,000 unit In 0.45 % NaCl 1 250ml.bag @ 18 UNITS/KG/HR 14.696 mls/hr IV .Q17H1M [facility] Rx#: [id number] Sodium Chloride 0.9% 1, 600 000 ml @ 100 mls/hr IV . Q10H [facility] Rx#:[id number] Oral 240 120 Output: Urine 180 Other: # Voids 2 1 - Exam GENERAL EXAM: Alert, very pleasant, 43-year-old -[place] male, on room air, with a pulse ox of 97% comfortable in no apparent distress. HEAD: Normocephalic/atraumatic. EYES: Normal reaction of pupils, equal size. Conjunctiva pink, sclera white. NOSE: Clear with pink turbinates. THROAT: No erythema or exudates. NECK: No masses, no JVD, no thyroid enlargement, no adenopathy. CHEST: No chest wall deformity. Symmetrical expansion. LUNGS: Equal air entry with no crackles, wheeze, rhonchi or dullness. CVS: Regular rate and rhythm, normal S1 and S2, no gallops, no murmurs, no rubs ABDOMEN: Soft, nontender. No hepatosplenomegaly, normal bowel sounds, no guarding or rigidity. EXTREMITIES: No clubbing, no edema, no cyanosis, 2+ pulses and upper and lower extremities. MUSCULOSKELETAL: Muscle strength and tone normal. SPINE: No scoliosis or deformity SKIN: No rashes CENTRAL NERVOUS SYSTEM: Alert and oriented -3. No focal deficits, tone is normal in all 4 extremities. PSYCHIATRIC: Alert and oriented -3. Appropriate affect. Intact judgment and insight. - Labs CBC & Chem 7: 07/12/19 06:05 07/12/19 06:05 Labs: Microbiology - Last 24 Hours (Table) 07/09/19 13:15 Blood Culture - Preliminary Blood No Growth after 72 hours Assessment and Plan Plan: Assessment: Acute hypoxic respiratory failure secondary to an acute exacerbation of mild int ermittent chronic bronchial asthma, possible bilateral lower lobe pulmonary emboli, suspected CoVID19 infection though negative on nasopharyngeal swab. Recently released from incarceration after 8 years for assault charge History of intermittent mild chronic bronchial asthma Chronic and ongoing tobacco dependence Plan: Patient is doing well, vital signs are stable, no specific complaints overnight, room air pulse ox is 97%, lower extremity Doppler was negative for DVT, patient has been started on oral diet coagulation in the form of Xarelto, stable for discharge from pulmonary perspective. He can follow up in the office with Dr. Rea in 3-4 weeks I performed a history & physical examination of the patient and discussed their management with my nurse practitioner, Martha Velasco. I reviewed the nurse practitioner's note and agree with the documented findings and plan of care. Lung sounds are positive for diminished breath sounds. The findings and the impression was discussed with the patient. I attest to the documentation by the nurse practitioner. Time with Patient: Less than 30
[2019-07-13] MEDS: NICOTINE 21MG/24HR PATCH TRANSDERM SCH (11:20)
== END 2019-07-13 12:12 | disposition home or self-care (01) | DRG 871 ==
LOC: EC 12:32 → 3SCARD 16:01
PROVIDERS: ADMIT Family Medicine; ATTEND Family Medicine
DX: A41.9 Sepsis, unspecified organism (principal); J15.9 Unspecified bacterial pneumonia; I26.99 Other pulmonary embolism without acute cor pulmonale; J96.01 Acute respiratory failure with hypoxia; J45.21 Mild intermittent asthma with (acute) exacerbation; F17.210 Nicotine dependence, cigarettes, uncomplicated; Z20.828 Contact with and (suspected) exposure to other viral communicable diseases; Z65.3 Problems related to other legal circumstances; Z88.0 Allergy status to penicillin
CPT/HCPCS: 36415; 71045; 71275; 80053; 82728; 83605; 83615; 83735; 84100; 84145; 84484; 85025; 85379; 85610; 85730; 86140; 87040; 87070; 87205; 87635; 93005; 93970; 94640; 96365; 96366; 96375; 96376; 99291

== ENCOUNTER 2020-10-06 13:57 | Emergency (ER) | payer OTHER ==
[2020-10-06 14:01] VITALS: TEMP 98
[2020-10-06] MEDS ORDERED: IPRATROPIUM-ALBUTEROL 3 ML NEB INHALATION STA (14:10)
[2020-10-06] MEDS ORDERED: predniSONE 20 MG TAB PO STA (14:10)
--- NOTE | 2020-10-06 14:24 | ED ---
General Adult HPI - General Chief complaint: Upper Respiratory Infection Stated complaint: cough Time Seen by Provider: 10/06/20 14:04 Source: patient Mode of arrival: ambulatory Limitations: no limitations - History of Present Illness Initial comments: 44-year-old male presents emergency Department with a chief complaint of cough. Patient reports he has asthma but he is a smoker. He states he has developed a nonproductive cough over last 3 days with wheezing, particularly in the morning. States he could not find his inhaler. Denies any other URI like symptoms. Denies any chest pain shortness of breath. Denies any nausea or vomiting. He denies any fevers or chills at home. - Related Data Previous Rx's Medication Instructions Recorded Acetaminophen Tab [Tylenol] 1,000 mg PO Q6HR PRN tab 07/13/19 Albuterol Inhaler [Ventolin Hfa 2 puff INHALATION RT-Q6H PRN 30 07/13/19 Inhaler] Days #1 inh Albuterol Sulfate [Proair Hfa] 1 - 2 puff INHALATION Q6HR PRN 30 07/13/19 Days #1 inhaler Budesonide-Formot 160-4.5 Mcg 2 puff INHALATION RT-BID 30 Days 07/13/19 [Symbicort 160-4.5 Mcg Inhaler] #1 inh Levofloxacin [Levaquin] 750 mg PO Q24H 7 Days #7 tab 07/13/19 Rivaroxaban [Xarelto] 15 mg PO BID-W/MEALS #20 tab 07/13/19 methylPREDNISolone Dose Pack 4 mg PO DIRECTED #21 package 07/13/19 [Medrol Dose Pack] Albuterol Sulfate [Ventolin HFA] 1 - 2 puff INHALATION Q6H PRN #1 10/06/20 inhaler predniSONE 50 mg PO DAILY #5 tab 10/06/20 Allergies Allergy/AdvReac Type Severity Reaction Status Date / Time Penicillins Allergy Swelling Verified 07/09/19 14:00 Review of Systems ROS Statement: Those systems with pertinent positive or pertinent negative responses have been documented in the HPI. ROS Other: All systems not noted in ROS Statement are negative. Past Medical History Past Medical History: Asthma History of Any Multi-Drug Resistant Organisms: None Reported Additional Past Surgical History / Comment(s): dental surgery. Past Anesthesia/Blood Transfusion Reactions: No Reported Reaction Past Psychological History: Anxiety Past Alcohol Use History: None Reported Past Drug Use History: None Reported General Exam Limitations: no limitations General appearance: alert, in no apparent distress Head exam: Present: atraumatic, normocephalic, normal inspection Eye exam: Present: normal appearance, PERRL, EOMI Pupils: Present: normal accommodation ENT exam: Present: normal exam, normal oropharynx, mucous membranes moist Neck exam: Present: normal inspection, full ROM. Absent: lymphadenopathy Respiratory exam: Present: wheezes (Mild diffuse bilateral wheezing). Absent: respiratory distress, rales, rhonchi, stridor, chest wall tenderness, accessory muscle use Cardiovascular Exam: Present: regular rate, normal rhythm, normal heart sounds. Absent: systolic murmur Extremities exam: Present: normal inspection, full ROM. Absent: tenderness Back exam: Present: normal inspection, full ROM. Absent: tenderness Neurological exam: Present: alert, oriented X3 Psychiatric exam: Present: normal affect, normal mood Skin exam: Present: warm, dry, intact, normal color Course Vital Signs 10/06/20 10/06/20 10/06/20 13:59 14:48 14:58 Temperature 98.0 F Pulse Rate 74 83 80 Respiratory 16 16 18 Rate Blood Pressure 125/88 O2 Sat by Pulse 100 Oximetry Medical Decision Making - Medical Decision Making 44-year-old male presents emergency Department with a chief complaint of cough. On physical examination, patient is a diffuse bilateral wheezing. No signs of respiratory distress. Vital signs are within normal limits. Chest x-rays and her medical. Patient was given a breathing treatment here with improvement in symptoms. He was also started on prednisone and will be discharged with prednisone and albuterol inhaler. Advised to follow-up with his primary care physician. Patient likely is presenting a mild asthma exacerbation. Strict return parameters were thoroughly discussed the patient is an attending agreeable. Case discussed physician. - Lab Data Lab Results 10/06/20 Range/Units 14:13 Coronavirus (PCR) Not Detected (Not Detectd) Disposition Clinical Impression: Asthma exacerbation Disposition: HOME SELF-CARE Condition: Stable Instructions (If sedation given, give patient instructions): Bronchospasm (ED), How to Use a Nebulizer (ED) Additional Instructions: take prescribed medication as directed. Follow with the primary care physician. Return to emergency department if symptoms worsen. Prescriptions: predniSONE 50 mg PO DAILY #5 tab Albuterol Sulfate [Ventolin HFA] 1 - 2 puff INHALATION Q6H PRN #1 inhaler PRN Reason: Wheezing Is patient prescribed a controlled substance at d/c from ED?: No Referrals: None,Stated [Primary Care Provider] - 1-2 days Time of Disposition: 15:00
--- NOTE | 2020-10-06 14:40 | XR ---
EXAMINATION TYPE: XR chest 2V DATE OF EXAM: 10/06/2020 COMPARISON: 07/10/2019 INDICATION: Cough, asthma TECHNIQUE: Frontal and lateral views of the chest are obtained. FINDINGS: The heart size is normal. The pulmonary vasculature is normal. The lungs are clear. Some hyperinflation may be present. IMPRESSION: 1. No acute pulmonary process.
[2020-10-06 14:59] VITALS: RESP 18
[2020-10-06 15:19] VITALS: BP 137/95; PULSE 81
== END 2020-10-06 15:19 | disposition home or self-care (01) ==
LOC: EC 13:57
DX: J45.901 Unspecified asthma with (acute) exacerbation (principal); Z79.51 Long term (current) use of inhaled steroids; Z79.01 Long term (current) use of anticoagulants; Z79.52 Long term (current) use of systemic steroids; Z79.899 Other long term (current) drug therapy; Z88.0 Allergy status to penicillin
CPT/HCPCS: 71046; 87635; 94640; 99283

== ENCOUNTER 2021-09-19 18:50 | Emergency (ER) | payer OTHER ==
[2021-09-19 19:10] VITALS: TEMP 97.9
[2021-09-19] MEDS ORDERED: SODIUM CHLORIDE 0.9% 1,000 ML IV STA (19:29)
[2021-09-19] MEDS ORDERED: KETOROLAC 15 MG/ML 1 ML VIAL IVP STA (19:30)
--- NOTE | 2021-09-19 20:11 | ED ---
Abdominal Pain HPI - General Chief Complaint: Abdominal Pain Stated Complaint: ABD Pain Time Seen by Provider: 09/19/21 19:19 Source: patient Mode of arrival: ambulatory Limitations: no limitations - History of Present Illness Initial Comments: Patient is a 45-year-old male presenting with chief complaint of abdominal pain. He has a history of asthma and pulmonary embolism. Patient states that for the last 2 days he has had epigastric abdominal pain when bending over or lying flat. He states that changing position helps alleviate the pain. Patient admits to diarrhea and one episode of emesis after eating. States he has had a low appetite, but he has been tolerating fluids well. Patient also notes 2 bumps to the left lower leg, he has a history of DVT/PE. He denies any leg pain, there is no edema. He denies chest pain, shortness of breath, fever, chills, hematochezia, melena, coffee ground emesis, hematemesis, cough, weakness, palpitations. - Related Data Home Medications Medication Instructions Recorded Confirmed No Known Home Medications 09/19/21 09/19/21 Allergies Allergy/AdvReac Type Severity Reaction Status Date / Time Penicillins Allergy Swelling Verified 09/19/21 21:54 Review of Systems ROS Statement: Those systems with pertinent positive or pertinent negative responses have been documented in the HPI. ROS Other: All systems not noted in ROS Statement are negative. Past Medical History Past Medical History: Asthma, Pulmonary Embolus (PE) History of Any Multi-Drug Resistant Organisms: None Reported Additional Past Surgical History / Comment(s): dental surgery. clavicle Past Anesthesia/Blood Transfusion Reactions: No Reported Reaction Past Psychological History: Anxiety Smoking Status: Current every day smoker Past Alcohol Use History: Occasional Past Drug Use History: None Reported General Exam Limitations: no limitations General appearance: alert, in no apparent distress Head exam: Present: atraumatic, normocephalic, normal inspection Eye exam: Present: normal appearance, EOMI. Absent: scleral icterus, periorbital swelling Neck exam: Present: normal inspection Respiratory exam: Present: normal lung sounds bilaterally. Absent: respiratory distress, wheezes, rales, rhonchi, stridor Cardiovascular Exam: Present: regular rate, normal rhythm, normal heart sounds. Absent: systolic murmur, diastolic murmur, rubs, gallop, clicks GI/Abdominal exam: Present: soft, normal bowel sounds. Absent: distended, tenderness, guarding, rebound, rigid Neurological exam: Present: alert, oriented X3, CN II-XII intact Psychiatric exam: Present: normal affect, normal mood Skin exam: Present: warm, dry, intact, normal color. Absent: rash Course Vital Signs 09/19/21 09/19/21 19:08 22:45 Temperature 97.9 F Pulse Rate 86 71 Respiratory 16 18 Rate Blood Pressure 149/101 143/97 O2 Sat by Pulse 100 100 Oximetry Medical Decision Making - Medical Decision Making Patient is a 45-year-old male presenting with chief complaint of right upper quadrant pain for the last 2 days. He admits to nausea and diarrhea. On examination there is some right upper quadrant tenderness on palpation, no rebound or guarding. There are 2 small bumps to the left lower leg, patient has a history of DVT/PE. CBC, PT/INR unremarkable. There is transaminitis with AST of 146 and ALT of 137. Lactic acid, troponin, electrolytes are WNL. Venous Doppler study shows no evidence of DVT. Abdomen ultrasound shows no acute abnormality. Patient states that this pain is well-controlled at this time with pain medication and fluids. Patient appears stable for discharge with outpatient follow-up at this time. I educated the patient on the findings, and stated that he would need to follow up with his PCP in the next 1-2 days for a redraw of these labs and may possibly need GI specialist depending on those results. I educated on return parameters answered all questions. Report back to ER with any new or worsening symptoms. Patient conveyed verbal understanding and agreed to the plan. I discussed this case with my attending Dr. Lincoln. - Lab Data Result diagrams: 09/19/21 19:55 09/19/21 19:29 Lab Results 09/19/21 09/19/21 09/19/21 Range/Units 19:29 19:55 19:55 WBC 9.9 (3.8-10.6) k/uL RBC 4.70 (4.30-5.90) m/uL Hgb 15.0 (13.0-17.5) gm/dL Hct 44.8 (39.0-53.0) % MCV 95.4 (80.0-100.0) fL MCH 32.0 (25.0-35.0) pg MCHC 33.5 (31.0-37.0) g/dL RDW 14.0 (11.5-15.5) % Plt Count 283 (150-450) k/uL MPV 7.5 Neutrophils % 71 % Lymphocytes % 18 % Monocytes % 5 % Eosinophils % 4 % Basophils % 1 % Neutrophils # 7.1 (1.3-7.7) k/uL Lymphocytes # 1.8 (1.0-4.8) k/uL Monocytes # 0.5 (0-1.0) k/uL Eosinophils # 0.4 (0-0.7) k/uL Basophils # 0.1 (0-0.2) k/uL PT 11.4 (9.0-12.0) sec INR 1.1 (<1.2) APTT 25.6 (22.0-30.0) sec Sodium 139 (137-145) mmol/L Potassium 3.9 (3.5-5.1) mmol/L Chloride 104 (98-107) mmol/L Carbon Dioxide 27 (22-30) mmol/L Anion Gap 8 mmol/L BUN 8 L (9-20) mg/dL Creatinine 1.02 (0.66-1.25) mg/dL Est GFR (CKD-EPI)AfAm >90 (>60 ml/min/1.73 sqM) Est GFR (CKD-EPI)NonAf 89 (>60 ml/min/1.73 sqM) Glucose 102 H (74-99) mg/dL Plasma Lactic Acid Masood (0.7-2.0) mmol/L Calcium 9.6 (8.4-10.2) mg/dL Total Bilirubin 0.8 (0.2-1.3) mg/dL AST 146 H (17-59) U/L ALT 137 H (4-49) U/L Alkaline Phosphatase 77 (38-126) U/L Troponin I (0.000-0.034) ng/mL Total Protein 7.7 (6.3-8.2) g/dL Albumin 4.6 (3.5-5.0) g/dL Amylase 78 (30-110) U/L Lipase 295 (23-300) U/L Urine Color Urine Appearance (Clear) Urine pH (5.0-8.0) Ur Specific Delta (1.001-1.035) Urine Protein (Negative) Urine Glucose (UA) (Negative) Urine Ketones (Negative) Urine Blood (Negative) Urine Nitrite (Negative) Urine Bilirubin (Negative) Urine Urobilinogen (<2.0) mg/dL Ur Leukocyte Esterase (Negative) Urine RBC (0-5) /hpf Urine WBC (0-5) /hpf Ur Squamous Epith Cells (0-4) /hpf Hyaline Casts (0-2) /lpf Urine Mucus (None) /hpf 09/19/21 09/19/21 09/19/21 Range/Units 19:55 19:55 21:04 WBC (3.8-10.6) k/uL RBC (4.30-5.90) m/uL Hgb (13.0-17.5) gm/dL Hct (39.0-53.0) % MCV (80.0-100.0) fL MCH (25.0-35.0) pg MCHC (31.0-37.0) g/dL RDW (11.5-15.5) % Plt Count (150-450) k/uL MPV Neutrophils % % Lymphocytes % % Monocytes % % Eosinophils % % Basophils % % Neutrophils # (1.3-7.7) k/uL Lymphocytes # (1.0-4.8) k/uL Monocytes # (0-1.0) k/uL Eosinophils # (0-0.7) k/uL Basophils # (0-0.2) k/uL PT (9.0-12.0) sec INR (<1.2) APTT (22.0-30.0) sec Sodium (137-145) mmol/L Potassium (3.5-5.1) mmol/L Chloride (98-107) mmol/L Carbon Dioxide (22-30) mmol/L Anion Gap mmol/L BUN (9-20) mg/dL Creatinine (0.66-1.25) mg/dL Est GFR (CKD-EPI)AfAm (>60 ml/min/1.73 sqM) Est GFR (CKD-EPI)NonAf (>60 ml/min/1.73 sqM) Glucose (74-99) mg/dL Plasma Lactic Acid Masood 1.3 (0.7-2.0) mmol/L Calcium (8.4-10.2) mg/dL Total Bilirubin (0.2-1.3) mg/dL AST (17-59) U/L ALT (4-49) U/L Alkaline Phosphatase (38-126) U/L Troponin I <0.012 (0.000-0.034) ng/mL Total Protein (6.3-8.2) g/dL Albumin (3.5-5.0) g/dL Amylase (30-110) U/L Lipase (23-300) U/L Urine Color Yellow Urine Appearance Clear (Clear) Urine pH 7.5 (5.0-8.0) Ur Specific Delta 1.028 (1.001-1.035) Urine Protein 1+ H (Negative) Urine Glucose (UA) 2+ H (Negative) Urine Ketones Trace H (Negative) Urine Blood Negative (Negative) Urine Nitrite Negative (Negative) Urine Bilirubin Negative (Negative) Urine Urobilinogen 2.0 (<2.0) mg/dL Ur Leukocyte Esterase Negative (Negative) Urine RBC 1 (0-5) /hpf Urine WBC 1 (0-5) /hpf Ur Squamous Epith Cells <1 (0-4) /hpf Hyaline Casts 1 (0-2) /lpf Urine Mucus Many H (None) /hpf Disposition Clinical Impression: Abdominal pain, Transaminitis Disposition: HOME SELF-CARE Condition: Good Instructions (If sedation given, give patient instructions): Abdominal Pain (ED) Additional Instructions: Follow-up with PCP in one to 2 days. Report back to ER with any new or worsening symptoms. Is patient prescribed a controlled substance at d/c from ED?: No Referrals: Avi Malhotra MD [Primary Care Provider] - 1-2 days Time of Disposition: 22:27
[2021-09-19 20:17] LABS: Basophils # (A) 0.1 k/uL (0-0.2); Basophils % (A) 1 %; Eosinophils # (A) 0.4 k/uL (0-0.7); Eosinophils % (A) 4 %; HCT 44.8 % (39.0-53.0); Lymphocytes # (A) 1.8 k/uL (1.0-4.8); Lymphocytes % (A) 18 %; MCHC 33.5 g/dL (31.0-37.0); MCV 95.4 fL (80.0-100.0); Mean Platelet Volume 7.5; Monocytes # (A) 0.5 k/uL (0-1.0); Monocytes % (A) 5 %; Neutrophils # (A) 7.1 k/uL (1.3-7.7); Neutrophils % (A) 71 %; Platelet Count 283 k/uL (150-450); WBC 9.9 k/uL (3.8-10.6)
[2021-09-19 20:24] LABS: ALT 137 U/L (4-49); AST 146 U/L (17-59); African American GFR (CKD) >90 (>60 ml/min/1.73 sqM); Albumin 4.6 g/dL (3.5-5.0); Alkaline Phosphatase 77 U/L (38-126); Amylase 78 U/L (30-110); Anion Gap 8 mmol/L; Blood Urea Nitrogen 8 mg/dL (9-20); Calcium 9.6 mg/dL (8.4-10.2); Carbon Dioxide 27 mmol/L (22-30); Chloride 104 mmol/L (98-107); Glucose 102 mg/dL (74-99); Lipase 295 U/L (23-300); Non-African American GFR(CKD) 89 (>60 ml/min/1.73 sqM); Potassium 3.9 mmol/L (3.5-5.1); Sodium 139 mmol/L (137-145); Total Bilirubin 0.8 mg/dL (0.2-1.3); Total Protein 7.7 g/dL (6.3-8.2)
[2021-09-19 20:25] LABS: INR 1.1 (<1.2); Partial Thromboplastin Time 25.6 sec (22.0-30.0); Prothrombin Time 11.4 sec (9.0-12.0)
[2021-09-19 21:14] LABS: Appearance,Urine Clear (Clear); Bilirubin,Urine Negative (Negative); Blood,Urine Negative (Negative); Color,Urine Yellow; Glucose,Urine (UA) 2+ (Negative); Hyaline Casts,Urine 1 /lpf (0-2); Ketones,Urine Trace (Negative); Leukocyte Esterase,Urine Negative (Negative); Mucus,Urine Many /hpf; Nitrite,Urine Negative (Negative); PH, Urine 7.5 (5.0-8.0); Protein,Urine 1+ (Negative); RBC,Urine 1 /hpf (0-5); Specific Gravity,Urine 1.028 (1.001-1.035); Squamous Epithelial Cell,Urine <1 /hpf (0-4); WBC,Urine 1 /hpf (0-5)
--- NOTE | 2021-09-19 21:18 | XR ---
EXAMINATION TYPE: XR KUB DATE OF EXAM: 09/19/2021 COMPARISON: NONE HISTORY: Abdominal pain TECHNIQUE: 2 views Upright FINDINGS: Bowel gas pattern is normal. No sign of intestinal obstruction or pneumoperitoneum. Fecal p attern is normal. Lung bases are clear. No pathologic calcification. IMPRESSION: Nonacute abdomen.
--- NOTE | 2021-09-19 21:51 | US ---
EXAMINATION TYPE: US abdomen limited DATE OF EXAM: 09/19/2021 COMPARISON: NONE CLINICAL HISTORY: Epigastric abdominal pain, transaminitis. Abdomen pain EXAM MEASUREMENTS: Liver Length: 17.1 cm Gallbladder Wall: 0.2 cm CBD: 0.4 cm Right Kidney: 11.5 x 4.7 x 4.4 cm Pancreas: visualized portions wnl, limited by overlying bowel gas Liver: wnl Gallbladder: wnl Evidence for sonographic Ashley's sign: no CBD: wnl Right Kidney: wnl IMPRESSION: Negative exam. No gallstones or dilated ducts.
--- NOTE | 2021-09-19 21:57 | US ---
EXAMINATION TYPE: US venous doppler duplex LE LT DATE OF EXAM: 09/19/2021 9:18 PM COMPARISON: NONE CLINICAL HISTORY: localized swelling, hx DVT. Patient states no symptoms SIDE PERFORMED: Left TECHNIQUE: The lower extremity deep venous system is examined utilizing real time linear array sonog netta with graded compression, doppler sonography and color-flow sonography. VESSELS IMAGED: Common Femoral Vein Deep Femoral Vein Greater Saphenous Vein * Femoral Vein Popliteal Vein Small Saphenous Vein * Proximal Calf Veins (* superficial vessels) Left Leg: Appears negative for DVT IMPRESSION: No evidence of deep vein thrombosis in the left leg.
[2021-09-19 22:46] VITALS: BP 143/97; PULSE 71; RESP 18
== END 2021-09-19 22:48 | disposition home or self-care (01) ==
LOC: EC 18:50
DX: R10.9 Unspecified abdominal pain (principal); R74.01 Elevation of levels of liver transaminase levels; F17.200 Nicotine dependence, unspecified, uncomplicated
CPT/HCPCS: 36415; 93005; 80053; 82150; 83605; 83690; 84484; 85025; 85610; 85730; 81001; 74018; 76705; 93971; 99284; 96374; 96361 ×3; J1885

== ENCOUNTER 2022-03-18 05:38 | Emergency (ER) | payer OTHER ==
[2022-03-18] MEDS ORDERED: KETOROLAC 15 MG/ML 1 ML VIAL IVP STA (06:11)
[2022-03-18] MEDS ORDERED: ONDANSETRON 4 MG/2 ML VIAL IVP STA (06:11)
[2022-03-18] MEDS ORDERED: SODIUM CHLORIDE 0.9% 1,000 ML IV STA ×2 (06:11)
--- NOTE | 2022-03-18 06:16 | ED ---
Abdominal Pain HPI - General Chief Complaint: Abdominal Pain Stated Complaint: abd pain Time Seen by Provider: 03/18/22 06:03 Source: patient, RN notes reviewed, old records reviewed Mode of arrival: ambulatory - History of Present Illness Initial Comments: This is a nontoxic-appearing 46-year-old black male, alert and oriented 4, presents to the emergency room with complaints of 2 weeks of epigastric abdominal pain. is a daily drinker and drinks a 6 pack a day. He is also a daily smoker. Denies any other medical history. No previous abdominal surgeries. was seen at [facility] on March 05 for the same pain and had labs and CAT scan done was told that he has pancreatitis. He's been having nausea and vomiting which he describes as orange in color. Denies any fevers or diarrhea. MD Complaint: abdominal pain -: week(s) (2) Location: epigastric Radiation: none Severity scale (1-10): 10 Quality: cramping Consistency: constant Improves With: nothing Context: other (Recent diagnosis of pancreatitis daily alcohol use) Associated Symptoms: nausea, vomiting Treatments Prior to Arrival: antacids (Omeprazole and famotidine) - Related Data Previous Rx's Medication Instructions Recorded Pantoprazole [Protonix] 40 mg PO DAILY 30 Days #30 tab 03/18/22 Allergies Allergy/AdvReac Type Severity Reaction Status Date / Time Penicillins Allergy Swelling Verified 03/18/22 05:52 Review of Systems ROS Statement: Those systems with pertinent positive or pertinent negative responses have been documented in the HPI. ROS Other: All systems not noted in ROS Statement are negative. Past Medical History Past Medical History: Asthma, Pulmonary Embolus (PE) History of Any Multi-Drug Resistant Organisms: None Reported Additional Past Surgical History / Comment(s): dental surgery. clavicle Past Anesthesia/Blood Transfusion Reactions: No Reported Reaction Past Psychological History: Anxiety Smoking Status: Current every day smoker Past Alcohol Use History: Occasional Past Drug Use History: None Reported General Exam General appearance: alert, in no apparent distress Head exam: Present: atraumatic, normocephalic Eye exam: Absent: conjunctival injection, periorbital swelling ENT exam: Present: mucous membranes moist Neck exam: Absent: tenderness, meningismus Respiratory exam: Present: normal lung sounds bilaterally. Absent: respiratory distress, accessory muscle use Cardiovascular Exam: Present: regular rate GI/Abdominal exam: Present: soft. Absent: distended, tenderness, rigid Back exam: Absent: tenderness, CVA tenderness (R), CVA tenderness (L), rash noted Neurological exam: Present: alert, oriented X3 Psychiatric exam: Present: normal affect, normal mood Skin exam: Present: warm, dry, normal color. Absent: cyanosis, diaphoretic, petechiae, pallor Course Vital Signs 03/18/22 03/18/22 05:46 08:58 Temperature 97.9 F 98 F Pulse Rate 90 86 Respiratory 16 19 Rate Blood Pressure 144/99 127/89 O2 Sat by Pulse 98 98 Oximetry - Reevaluation(s) Reevaluation #1: 03/18/22 07:50 Medical records were reviewed from [facility] for patient's visit on March 04. White blood cell count 11.8 at that time, lipase 138, urine drug screen positive for cocaine. X-ray of the abdomen negative. Diagnosis was gastritis either from alcohol or marijuana-induced cyclic vomiting. Time: 07:50 Medical Decision Making - Medical Decision Making Labs show a mild leukocytosis which may be related to the patient's vomiting. Lactic acid is elevated at 2.9 he was given IV fluids. Lipase is 578. KUB x-ray interpreted by me shows no evidence of free air. Radiologist interpretation nonacute abdomen no change. CT the abdomen and pelvis performed due to patient's continued complaints of abdominal pain and show evidence of mild pancreatitis. No calculi within the kidneys and ureters. No evidence of bowel obstruction. Scattered diverticuli with no evidence of diverticulosis. Duodenitis without evidence of perforation. Reactive wall thickening. Bilateral fat containing inguinal hernias. Patient was given IV fluids, Protonix, Zofran, Toradol, GI cocktail and Dilaudid for his discomfort. Vital signs are stable. This is likely gastritis/duodenitis related to patient's daily alcohol use of 6 beers a day. He did have a beer this morning prior to coming to the emergency room. Patient was prescribed Protonix directed to stop drinking as this will worsen his symptoms of abdominal pain. Directed to follow up with his primary care doctor next week. He is agreeable with this plan of care. Family at bedside. Case discussed with Dr. Banks Was pt. sent in by a medical professional or institution? @ -No Did you speak to anyone other than the patient for history? @ -No Did you review nursing and triage notes? @ -Yes I agree Were old charts reviewed? @ -Records from [facility] reviewed Differential Diagnosis? @ -Differential Abdominal Pain Men: Appendicitis, cholecystitis, diverticulosis, ischemic bowel, pancreatitis, hepatitis, UTI, gastroenteritis, AAA, incarcerated hernia, bowel obstruction, constipation, inflammatory bowel, hepatitis, peptic ulcer disease, splenic infarction, perforated viscus, this is not meant to be an all-inclusive list EKG interpreted by me (3pts min.)? @ -No X-rays interpreted by me (1pt min.)? @ -Yes as above CT interpreted by me (1pt min.)? @ -No U/S interpreted by me (1pt. min.)? @ -None What testing was considered but not performed? (CT, X-rays, U/S, labs)? Why? @ None What meds were considered but not given? Why? @ -Antibiotics were considered however there is no evidence of appendicitis this is likely gastritis duodenitis related to alcohol abuse Did you discuss the management of the patient with other professionals? @ -No Did you reconcile home meds? @ -No Was smoking cessation discussed for >3mins.? @ -Yes Was critical care preformed (if so, how long)? @ -No Were there social determinants of health that impacted care today? How? (Ho melessness, low income, unemployed, alcoholism, drug addiction, transportation, low edu. Level, literacy, decrease access to med. care, senior living, rehab)? @ -Alcoholism Was there de-escalation of care discussed even if they declined? (Discuss DNR or withdrawal of care, Hospice)? @ -No What co-morbidities impacted this encounter? (DM, HTN, Smoking, COPD, CAD, Cancer, CVA, Hep., AIDS, mental health diagnosis, sleep apnea, morbid obesity)? @ -Asthma, alcohol abuse, smoker Was patient admitted / discharged? @ -Discharged Undiagnosed new problem with uncertain prognosis? @ -[none] Drug Therapy requiring intensive monitoring for toxicity (Heparin, Nitro, Insulin, Cardizem)? @ -No Were any procedures done? @ -None Diagnosis/symptom? @ -Gastritis duodenitis Acute, or Chronic, or Acute on Chronic? @ -Acute Uncomplicated (without systemic symptoms) or Complicated (systemic symptoms)? @ -[default] Side effects of treatment? @ -[none] Exacerbation, Progression, or Severe Exacerbation] @ -[no] Poses a threat to life or bodily function? @ -[no] - Lab Data Result diagrams: 03/18/22 06:21 03/18/22 06:21 Lab Results 03/18/22 03/18/22 03/18/22 Range/Units 06:21 06:21 06:21 WBC 14.5 H (3.8-10.6) k/uL RBC 4.75 (4.30-5.90) m/uL Hgb 15.1 (13.0-17.5) gm/dL Hct 43.6 (39.0-53.0) % MCV 91.8 (80.0-100.0) fL MCH 31.8 (25.0-35.0) pg MCHC 34.7 (31.0-37.0) g/dL RDW 12.6 (11.5-15.5) % Plt Count 462 H (150-450) k/uL MPV 7.4 Neutrophils % 78 % Lymphocytes % 13 % Monocytes % 4 % Eosinophils % 3 % Basophils % 1 % Neutrophils # 11.3 H (1.3-7.7) k/uL Lymphocytes # 1.9 (1.0-4.8) k/uL Monocytes # 0.5 (0-1.0) k/uL Eosinophils # 0.5 (0-0.7) k/uL Basophils # 0.1 (0-0.2) k/uL Sodium 141 (137-145) mmol/L Potassium 3.8 (3.5-5.1) mmol/L Chloride 107 (98-107) mmol/L Carbon Dioxide 21 L (22-30) mmol/L Anion Gap 13 mmol/L BUN 7 L (9-20) mg/dL Creatinine 0.81 (0.66-1.25) mg/dL Est GFR (CKD-EPI)AfAm >90 (>60 ml/min/1.73 sqM) Est GFR (CKD-EPI)NonAf >90 (>60 ml/min/1.73 sqM) Glucose 122 H (74-99) mg/dL Lactic Ac Sepsis Rflx Plasma Lactic Acid Masood 2.9 H* (0.7-2.0) mmol/L Calcium 9.1 (8.4-10.2) mg/dL Total Bilirubin 0.5 (0.2-1.3) mg/dL AST 39 (17-59) U/L ALT 57 H (4-49) U/L Alkaline Phosphatase 71 (38-126) U/L Total Protein 7.4 (6.3-8.2) g/dL Albumin 4.4 (3.5-5.0) g/dL Amylase 116 H (30-110) U/L Lipase 578 H (23-300) U/L 03/18/22 Range/Units 06:51 WBC (3.8-10.6) k/uL RBC (4.30-5.90) m/uL Hgb (13.0-17.5) gm/dL Hct (39.0-53.0) % MCV (80.0-100.0) fL MCH (25.0-35.0) pg MCHC (31.0-37.0) g/dL RDW (11.5-15.5) % Plt Count (150-450) k/uL MPV Neutrophils % % Lymphocytes % % Monocytes % % Eosinophils % % Basophils % % Neutrophils # (1.3-7.7) k/uL Lymphocytes # (1.0-4.8) k/uL Monocytes # (0-1.0) k/uL Eosinophils # (0-0.7) k/uL Basophils # (0-0.2) k/uL Sodium (137-145) mmol/L Potassium (3.5-5.1) mmol/L Chloride (98-107) mmol/L Carbon Dioxide (22-30) mmol/L Anion Gap mmol/L BUN (9-20) mg/dL Creatinine (0.66-1.25) mg/dL Est GFR (CKD-EPI)AfAm (>60 ml/min/1.73 sqM) Est GFR (CKD-EPI)NonAf (>60 ml/min/1.73 sqM) Glucose (74-99) mg/dL Lactic Ac Sepsis Rflx Y Plasma Lactic Acid Masood (0.7-2.0) mmol/L Calcium (8.4-10.2) mg/dL Total Bilirubin (0.2-1.3) mg/dL AST (17-59) U/L ALT (4-49) U/L Alkaline Phosphatase (38-126) U/L Total Protein (6.3-8.2) g/dL Albumin (3.5-5.0) g/dL Amylase (30-110) U/L Lipase (23-300) U/L Disposition Clinical Impression: Pancreatitis, Chronic alcohol use, Gastritis and duodenitis Disposition: HOME SELF-CARE Condition: Good Instructions (If sedation given, give patient instructions): How to Stop Smoking (ED), Pancreatitis (ED), At-Risk Alcohol Use (ED) Additional Instructions: Alcohol causes pancreatitis and gastritis and will worsen your abdominal pain. Please consider stopping smoking as this causes chronic health problems as well. Follow-up with your primary care doctor next week. Return to the emergency room with any new or concerning symptoms. Prescriptions: Pantoprazole [Protonix] 40 mg PO DAILY 30 Days #30 tab Is patient prescribed a controlled substance at d/c from ED?: No Referrals: Edwin Santacruz MD [Primary Care Provider] - 1-2 days Time of Disposition: 09:22
[2022-03-18 06:28] LABS: Basophils # (A) 0.1 k/uL (0-0.2); Basophils % (A) 1 %; Eosinophils # (A) 0.5 k/uL (0-0.7); Eosinophils % (A) 3 %; HCT 43.6 % (39.0-53.0); HGB 15.1 gm/dL (13.0-17.5); Lymphocytes # (A) 1.9 k/uL (1.0-4.8); Lymphocytes % (A) 13 %; MCH 31.8 pg (25.0-35.0); MCHC 34.7 g/dL (31.0-37.0); MCV 91.8 fL (80.0-100.0); Mean Platelet Volume 7.4; Monocytes # (A) 0.5 k/uL (0-1.0); Monocytes % (A) 4 %; Neutrophils # (A) 11.3 k/uL (1.3-7.7); Neutrophils % (A) 78 %; Platelet Count 462 k/uL (150-450); RBC 4.75 m/uL (4.30-5.90); RDW 12.6 % (11.5-15.5); WBC 14.5 k/uL (3.8-10.6)
[2022-03-18 06:39] LABS: ALT 57 U/L (4-49); AST 39 U/L (17-59); African American GFR (CKD) >90 (>60 ml/min/1.73 sqM); Albumin 4.4 g/dL (3.5-5.0); Alkaline Phosphatase 71 U/L (38-126); Amylase 116 U/L (30-110); Anion Gap 13 mmol/L; Blood Urea Nitrogen 7 mg/dL (9-20); Calcium 9.1 mg/dL (8.4-10.2); Carbon Dioxide 21 mmol/L (22-30); Chloride 107 mmol/L (98-107); Glucose 122 mg/dL (74-99); Lipase 578 U/L (23-300); Non-African American GFR(CKD) >90 (>60 ml/min/1.73 sqM); Potassium 3.8 mmol/L (3.5-5.1); Sodium 141 mmol/L (137-145); Total Bilirubin 0.5 mg/dL (0.2-1.3); Total Protein 7.4 g/dL (6.3-8.2)
--- NOTE | 2022-03-18 06:46 | XR ---
EXAMINATION TYPE: XR KUB DATE OF EXAM: 03/18/2022 COMPARISON: 09/19/2021 HISTORY: Abdominal pain TECHNIQUE: 2 views upright FINDINGS: There is no sign of intestinal obstruction or pneumoperitoneum. Fecal pattern is normal. No evidence of a mass. No pathologic calcification over the kidneys. IMPRESSION: Nonacute abdomen. No change.
[2022-03-18] MEDS ORDERED: SODIUM CHLORIDE 0.9% 1,000 ML IV ONE (07:06)
[2022-03-18] MEDS ORDERED: HYDROmorphone 0.5 MG/0.5 ML SYRINGE IVP STA (07:15)
[2022-03-18 09:02] VITALS: BP 127/89; PULSE 86; RESP 19; TEMP 98
--- NOTE | 2022-03-18 09:02 | CT ---
EXAMINATION TYPE: CT abdomen pelvis w con CT DLP: 935 mGycm, Automated exposure control for dose reduction was used. DATE OF EXAM: 03/18/2022 8:38 AM COMPARISON: None CLINICAL INDICATION:Male, 46 years old with history of abd pain; Abdominal pain, stomach pain TECHNIQUE: Axial CT of the abdomen and pelvis. Sagittal and coronal reformats were created on a [employer] workstation. Contrast used:100 mL of Isovue 300 with IV Contrast, Oral contrast used: without Oral Contrast FINDINGS: LOWER CHEST: Unremarkable ABDOMEN LIVER: Diffusely hypoattenuating parenchyma. GALLBLADDER AND BILE DUCTS: Soft tissue density along the left lateral aspect may represent lymph nod e measuring 7 mm in short axis. PANCREAS: Unremarkable. SPLEEN: Unremarkable. ADRENAL GLANDS: Unremarkable. KIDNEYS AND URETERS: No evidence of hydronephrosis or renal calculus. The ureters are unremarkable. PELVIS BLADDER: Unremarkable REPRODUCTIVE: Unremarkable. ABDOMEN & PELVIS STOMACH AND BOWEL: No evidence of bowel obstruction. Scattered clonic diverticula are present. The ap pendix is normal. Duodenal circumferential wall thickening measuring up to 1.5 cm most pronounced in the second portion superiorly. The adjacent colon demonstrates some wall thickening likely reactive measuring up to 6 m m PERITONEUM/RETROPERITONEUM: No evidence of pneumoperitoneum or free fluid. . VASCULATURE: No evidence of aortic aneurysm. MUSCULOSKELETAL: No acute osseous abnormalities LYMPH NODES: No gross evidence for lymphadenopathy. SOFT TISSUE/ABDOMINAL WALL: Bilateral fat-containing inguinal hernias. IMPRESSION: 1. Duodenitis without evidence of perforation at this time. Reactive wall thickening of the adjacent colon is also present. 2. Hepatic steatosis. 3. Bilateral fat-containing inguinal hernias. 4. Colonic diverticulosis.
[2022-03-18] MEDS ORDERED: PANTOPRAZOLE 40 MG/10 ML VIAL IVP STA (09:20)
[2022-03-18] MEDS ORDERED: MAG HYDROX/AL HYDROX/SIMETH 30 ML, HYOSCYAMINE ELIXIR 10 ML, LIDOCAINE VISCOUS 2% 10 ML PO STA ×3 (09:20)
== END 2022-03-18 09:37 | disposition home or self-care (01) ==
LOC: EC 05:38
DX: K85.90 Acute pancreatitis without necrosis or infection, unspecified (principal); F10.929 Alcohol use, unspecified with intoxication, unspecified; K29.70 Gastritis, unspecified, without bleeding; K29.80 Duodenitis without bleeding; K57.30 Diverticulosis of large intestine without perforation or abscess without bleeding; J45.909 Unspecified asthma, uncomplicated; I26.99 Other pulmonary embolism without acute cor pulmonale; F41.9 Anxiety disorder, unspecified; F17.210 Nicotine dependence, cigarettes, uncomplicated; Z88.0 Allergy status to penicillin
CPT/HCPCS: 36415; 80053; 82150; 83605; 83690; 85025; 74018; 74177; 99285; 96374; 96375 ×3; 96361 ×3; J2405; J1885; C9113; J1170; Q9967

== ENCOUNTER 2022-03-18 14:18 | Observation (INO) | payer OTHER ==
[2022-03-18] MEDS ORDERED: FAMOTIDINE 20 MG TAB PO STA (14:35)
[2022-03-18] MEDS ORDERED: LORazepam 1 MG TAB PO STA (14:35)
[2022-03-18] MEDS ORDERED: ONDANSETRON ODT 4 MG TAB PO STA (14:35)
[2022-03-18] MEDS ORDERED: MAG HYDROX/AL HYDROX/SIMETH 30 ML, HYOSCYAMINE ELIXIR 10 ML, LIDOCAINE VISCOUS 2% 10 ML PO STA ×3 (14:35)
--- NOTE | 2022-03-18 14:37 | ED ---
Abdominal Pain HPI - General Chief Complaint: Abdominal Pain Stated Complaint: gastritis flare up Time Seen by Provider: 03/18/22 14:30 Source: patient, family, RN notes reviewed, old records reviewed Mode of arrival: ambulatory Limitations: no limitations - History of Present Illness Initial Comments: Patient was seen by me and discharged this morning at 9:30. He was diagnosed at that time with gastritis duodenitis by CT scan. He was tolerating fluids at discharge per RN. Patient states that he continues to have nausea vomiting and abdominal pain. Denies any drug use. Last beer was this morning prior to being seen in the ER initially. States normally drinks 6 beers a day. Denies any drug use. MD Complaint: abdominal pain -: hour(s) Location: diffuse Radiation: none Severity scale (1-10): 10 Associated Symptoms: nausea, vomiting - Related Data Home Medications Medication Instructions Recorded Confirmed Famotidine [Pepcid] 20 mg PO BID 03/18/22 03/18/22 Omeprazole 40 mg PO DAILY 03/18/22 03/18/22 Previous Rx's Medication Instructions Recorded Pantoprazole [Protonix] 40 mg PO DAILY 30 Days #30 tab 03/18/22 Allergies Allergy/AdvReac Type Severity Reaction Status Date / Time Penicillins Allergy Swelling Verified 03/18/22 15:45 Review of Systems ROS Statement: Those systems with pertinent positive or pertinent negative responses have been documented in the HPI. ROS Other: All systems not noted in ROS Statement are negative. Past Medical History Past Medical History: Asthma, Pulmonary Embolus (PE) History of Any Multi-Drug Resistant Organisms: None Reported Additional Past Surgical History / Comment(s): dental surgery. clavicle Past Anesthesia/Blood Transfusion Reactions: No Reported Reaction Past Psychological History: Anxiety Smoking Status: Current every day smoker Past Alcohol Use History: Occasional Past Drug Use History: None Reported General Exam Limitations: no limitations General appearance: alert, in no apparent distress Head exam: Present: atraumatic Eye exam: Absent: scleral icterus, conjunctival injection, periorbital swelling, periorbital tenderness Respiratory exam: Absent: respiratory distress, accessory muscle use Cardiovascular Exam: Present: regular rate Extremities exam: Present: normal capillary refill. Absent: pedal edema Neurological exam: Present: alert, oriented X3 Psychiatric exam: Present: normal affect, normal mood Skin exam: Present: warm, dry, normal color. Absent: cyanosis, diaphoretic Course Vital Signs 03/18/22 03/18/22 14:23 16:03 Temperature 98.5 F Pulse Rate 71 60 Respiratory 20 18 Rate Blood Pressure 141/111 157/104 O2 Sat by Pulse 99 98 Oximetry Medical Decision Making - Medical Decision Making Patient with persistent abdominal pain, nausea and vomiting despite oral meds. Labs, x-ray and CT were performed this morning showing gastritis duodenitis. Lipase 667, up from this morning at 578. White blood cell count up to 16 from 14 earlier this morning, this is likely related to his vomiting. I did speak with [facility] who agreed to admit for rehydration and reevaluation. Patient is agreeable to this plan of care. Case discussed with Dr. Contreras. Was pt. sent in by a medical professional or institution? @ -no Did you speak to anyone other than the patient for history? @ -no Did you review nursing and triage notes? @ -yes I agree Were old charts reviewed? @ -ct and labs from earlier today Differential Diagnosis? @ Differential Abdominal Pain Men: Appendicitis, cholecystitis, diverticulosis, ischemic bowel, pancreatitis, h epatitis, gastroenteritis, AAA, incarcerated hernia, bowel obstruction, constipation, inflammatory bowel, hepatitis, peptic ulcer disease, splenic infarction, perforated viscus, this is not meant to be an all-inclusive list EKG interpreted by me (3pts min.)? @ -no X-rays interpreted by me (1pt min.)? @ -yes, seen earlier today and interpreted by me CT interpreted by me (1pt min.)? @ -no U/S interpreted by me (1pt. min.)? @ -n/a What testing was considered but not performed? (CT, X-rays, U/S, labs)? Why? @ CT was considered however done just hours earlier today, no significant change in labs to repeat imaging What meds were considered but not given? Why? @ -[none] Did you discuss the management of the patient with other professionals? @ -no Did you reconcile home meds? @ -no Was smoking cessation discussed for >3mins.? @ -yes Was critical care preformed (if so, how long)? @ -no Were there social determinants of health that impacted care today? How? (Homelessness, low income, unemployed, alcoholism, drug addiction, transportation, low edu. Level, literacy, decrease access to med. care, alf, rehab)? @ -alcohol abuse Was there de-escalation of care discussed even if they declined? (Discuss DNR or withdrawal of care, Hospice)? @ -no What co-morbidities impacted this encounter? (DM, HTN, Smoking, COPD, CAD, C ancer, CVA, Hep., AIDS, mental health diagnosis, sleep apnea, morbid obesity)? @ -alcohol abuse, smoker Was patient admitted / discharged? @ -admitted Undiagnosed new problem with uncertain prognosis? @ -[none] Drug Therapy requiring intensive monitoring for toxicity (Heparin, Nitro, Insulin, Cardizem)? @ -no Were any procedures done? @ -no Diagnosis/symptom? @ -Intractable nausea vomiting, gastritis duodenitis, mild pancreatitis Acute, or Chronic, or Acute on Chronic? @ -acute Uncomplicated (without systemic symptoms) or Complicated (systemic symptoms)? @ -Complicated Side effects of treatment? @ -[none] Exacerbation, Progression, or Severe Exacerbation] @ -[no] Poses a threat to life or bodily function? @ -[no] - Lab Data Result diagrams: 03/18/22 15:40 03/18/22 15:40 Lab Results 03/18/22 03/18/22 Range/Units 15:40 15:40 WBC 16.2 H (3.8-10.6) k/uL RBC 4.56 (4.30-5.90) m/uL Hgb 14.6 (13.0-17.5) gm/dL Hct 43.3 (39.0-53.0) % MCV 94.9 (80.0-100.0) fL MCH 32.1 (25.0-35.0) pg MCHC 33.8 (31.0-37.0) g/dL RDW 13.1 (11.5-15.5) % Plt Count 438 (150-450) k/uL MPV 8.1 Neutrophils % 87 % Lymphocytes % 7 % Monocytes % 3 % Eosinophils % 1 % Basophils % 0 % Neutrophils # 14.1 H (1.3-7.7) k/uL Lymphocytes # 1.1 (1.0-4.8) k/uL Monocytes # 0.5 (0-1.0) k/uL Eosinophils # 0.2 (0-0.7) k/uL Basophils # 0.1 (0-0.2) k/uL Sodium 143 (137-145) mmol/L Potassium 4.5 (3.5-5.1) mmol/L Chloride 107 (98-107) mmol/L Carbon Dioxide 27 (22-30) mmol/L Anion Gap 9 mmol/L BUN 7 L (9-20) mg/dL Creatinine 0.89 (0.66-1.25) mg/dL Est GFR (CKD-EPI)AfAm >90 (>60 ml/min/1.73 sqM) Est GFR (CKD-EPI)NonAf >90 (>60 ml/min/1.73 sqM) Glucose 139 H (74-99) mg/dL Calcium 9.4 (8.4-10.2) mg/dL Total Bilirubin 0.6 (0.2-1.3) mg/dL AST 34 (17-59) U/L ALT 55 H (4-49) U/L Alkaline Phosphatase 75 (38-126) U/L Total Protein 7.2 (6.3-8.2) g/dL Albumin 4.3 (3.5-5.0) g/dL Amylase 126 H (30-110) U/L Lipase 667 H (23-300) U/L Disposition Clinical Impression: Intractable nausea and vomiting, Abdominal pain, Gastritis and duodenitis, Chronic alcohol use, Hypertension Disposition: ADMITTED IP TO THIS [facility] Referrals: Edwin Santacruz MD [Primary Care Provider] - 1-2 days Decision Date: 03/18/22 Decision Time: 15:31
[2022-03-18] MEDS ORDERED: SODIUM CHLORIDE 0.9% 1,000 ML IV STA ×2 (15:29)
[2022-03-18] MEDS ORDERED: KETOROLAC 15 MG/ML 1 ML VIAL IVP PRN (15:41)
[2022-03-18] MEDS ORDERED: ONDANSETRON 4 MG/2 ML VIAL IVP PRN (15:41)
[2022-03-18] MEDS ORDERED: ACETAMINOPHEN TAB 325 MG TAB PO PRN (15:41)
[2022-03-18] MEDS ORDERED: NALOXONE 0.4 MG/ML 1 ML VIAL IV PRN (15:41)
[2022-03-18 15:58] LABS: Basophils # (A) 0.1 k/uL (0-0.2); Basophils % (A) 0 %; Eosinophils # (A) 0.2 k/uL (0-0.7); Eosinophils % (A) 1 %; HCT 43.3 % (39.0-53.0); HGB 14.6 gm/dL (13.0-17.5); Lymphocytes # (A) 1.1 k/uL (1.0-4.8); Lymphocytes % (A) 7 %; MCH 32.1 pg (25.0-35.0); MCHC 33.8 g/dL (31.0-37.0); MCV 94.9 fL (80.0-100.0); Mean Platelet Volume 8.1; Monocytes # (A) 0.5 k/uL (0-1.0); Monocytes % (A) 3 %; Neutrophils # (A) 14.1 k/uL (1.3-7.7); Neutrophils % (A) 87 %; Platelet Count 438 k/uL (150-450); RBC 4.56 m/uL (4.30-5.90); RDW 13.1 % (11.5-15.5); WBC 16.2 k/uL (3.8-10.6)
[2022-03-18 16:15] LABS: ALT 55 U/L (4-49); AST 34 U/L (17-59); African American GFR (CKD) >90 (>60 ml/min/1.73 sqM); Albumin 4.3 g/dL (3.5-5.0); Alkaline Phosphatase 75 U/L (38-126); Amylase 126 U/L (30-110); Anion Gap 9 mmol/L; Blood Urea Nitrogen 7 mg/dL (9-20); Calcium 9.4 mg/dL (8.4-10.2); Carbon Dioxide 27 mmol/L (22-30); Chloride 107 mmol/L (98-107); Glucose 139 mg/dL (74-99); Lipase 667 U/L (23-300); Non-African American GFR(CKD) >90 (>60 ml/min/1.73 sqM); Potassium 4.5 mmol/L (3.5-5.1); Sodium 143 mmol/L (137-145); Total Bilirubin 0.6 mg/dL (0.2-1.3); Total Protein 7.2 g/dL (6.3-8.2)
[2022-03-18] MEDS ORDERED: hydrALAZINE HCL 20 MG/ML 1 ML VIAL IVP STA (16:26)
[2022-03-18] MEDS: PANTOPRAZOLE 40 MG/10 ML VIAL IVP SCH (20:30)
[2022-03-19] MEDS: PANTOPRAZOLE 40 MG/10 ML VIAL IVP SCH (08:21)
[2022-03-19 08:29] VITALS: BP 127/83; PULSE 73; RESP 15; TEMP 98.2
[2022-03-19] MEDS ORDERED: PANTOPRAZOLE 40 MG/10 ML VIAL IV SCH (09:00)
[2022-03-19] MEDS ORDERED: NICOTINE 14MG/24HR PATCH TRANSDERM SCH (09:00)
--- NOTE | 2022-03-19 13:48 | P.HPIM ---
History of Present Illness 6-year-old male was recently diagnosed with gastroduodenitis and was discharged on proton pump inhibitor from the ER comes back again with nausea vomiting. Patient does drink alcohol every day does smoke about one and half packs of cigarettes per day. Although patient is willing to quit never had an withdrawals in the past. Patient has mildly elevated lipase. Patient has a sharp epigastric abdominal pain which resolved at this time nausea vomiting resolved at this time patient was started on clear liquid diet will advance her diet today patient was on IV Protonix. REVIEW OF SYSTEMS: CONSTITUTIONAL: No fever, no malaise, no fatigue. HEENT: No recent visual problems or hearing problems. Denied any sore throat. CARDIOVASCULAR: No chest pain, orthopnea, PND, no palpitations, no syncope. PULMONARY: No shortness of breath, no cough, no hemoptysis. GASTROINTESTINAL: As mentioned in HPI NEUROLOGICAL: No headaches, no weakness, no numbness. HEMATOLOGICAL: Denies any bleeding or petechiae. GENITOURINARY: Denies any burning micturition, frequency, or urgency. MUSCULOSKELETAL/RHEUMATOLOGICAL: Denies any joint pain, swelling, or any muscle pain. ENDOCRINE: Denies any polyuria or polydipsia. The rest of the 14-point review of systems is negative. PHYSICAL EXAMINATION: GENERAL: The patient is alert and oriented x3, not in any acute distress. Well developed, well nourished. HEENT: Pupils are round and equally reacting to light. EOMI. No scleral icterus. No conjunctival pallor. Normocephalic, atraumatic. No pharyngeal erythema. No thyromegaly. CARDIOVASCULAR: S1 and S2 present. No murmurs, rubs, or gallops. PULMONARY: Chest is clear to auscultation, no wheezing or crackles. ABDOMEN: Soft, nontender, nondistended, normoactive bowel sounds. No palpable organomegaly. MUSCULOSKELETAL: No joint swelling or deformity. EXTREMITIES: No cyanosis, clubbing, or pedal edema. NEUROLOGICAL: Gross neurological examination did not reveal any focal deficits. SKIN: No rashes. Assessment and plan -Nausea vomiting: Secondary to gastritis and duodenitis, and the patient will be discharged on Protonix twice a day for 14 days along with Maalox and patient the will be deferred to either gastroneurologist general surgery for upper GI endoscopy as an outpatient. Extensive counseling regarding alcohol cessation and nicotine cessation was provided next -leukocytosis reactive secondary to nausea vomiting -Elevated lipase: Mild nonspecific elevation second alcoholism -Mild AST elevation seconded to alcohol use. -Asthma without any acute exacerbation Patient will be discharged today Past Medical History Past Medical History: Asthma, Pulmonary Embolus (PE) History of Any Multi-Drug Resistant Organisms: None Reported Additional Past Surgical History / Comment(s): dental surgery. clavicle Past Anesthesia/Blood Transfusion Reactions: No Reported Reaction Past Psychological History: Anxiety Smoking Status: Current every day smoker Past Alcohol Use History: Occasional Past Drug Use History: None Reported Medications and Allergies Home Medications Medication Instructions Recorded Confirmed Type Mag Hydrox/Al Hydrox/Simeth 5 ml PO AC-TID #200 ml 03/19/22 Rx [Maalox] Ondansetron Odt [Zofran Odt] 4 mg PO Q8HR PRN #30 tab 03/19/22 Rx Pantoprazole [Protonix] 40 mg PO BID #30 tab 03/19/22 Rx Allergies Allergy/AdvReac Type Severity Reaction Status Date / Time Penicillins Allergy Swelling Verified 03/18/22 15:45 Physical Exam Vitals: Vital Signs Temp Pulse Pulse Resp BP BP BP 03/19/22 08:00 73 15 03/19/22 07:00 98.2 F 73 15 127/83 03/19/22 02:25 97.3 F L 89 18 184/62 03/19/22 01:22 93 18 03/18/22 20:30 93 18 03/18/22 19:18 98.4 F 93 18 121/73 03/18/22 18:06 99 16 146/102 03/18/22 16:54 81 148/102 03/18/22 16:03 60 18 157/104 03/18/22 14:23 98.5 F 71 20 141/111 Pulse Ox 03/19/22 08:00 03/19/22 07:00 100 03/19/22 02:25 98 03/19/22 01:22 03/18/22 20:30 03/18/22 19:18 99 03/18/22 18:06 99 03/18/22 16:54 97 03/18/22 16:03 98 03/18/22 14:23 99 Intake and Output 03/18/22 03/19/22 03/19/22 22:59 06:59 14:59 Output Total 200 Balance -200 Output: Urine 200 Other: Voiding Method Urinal Urinal Urinal # Voids 1 Weight 89.358 kg Results CBC & Chem 7: 03/18/22 15:40 03/18/22 15:40 Labs: Abnormal Lab Results - Last 24 Hours (Table) 03/18/22 03/18/22 Range/Units 15:40 15:40 WBC 16.2 H (3.8-10.6) k/uL Neutrophils # 14.1 H (1.3-7.7) k/uL BUN 7 L (9-20) mg/dL Glucose 139 H (74-99) mg/dL ALT 55 H (4-49) U/L Amylase 126 H (30-110) U/L Lipase 667 H (23-300) U/L Thrombosis Risk Factor Assmnt - Choose All That Apply Any of the Below Risk Factors Present?: Yes Each Factor Represents 1 point: Obesity (BMI >25) Other Risk Factors: Yes Each Risk Factor Represents 3 Points: History of DVT/PE Other congenital or acquired thrombophilia - If yes, enter type in comment: No Thrombosis Risk Factor Assessment Total Risk Factor Score: 4 Thrombosis Risk Factor Assessment Level: Moderate Risk
== END 2022-03-19 14:07 | disposition home or self-care (01) ==
LOC: EC 14:18 → 6NMEDSUR 17:25
PROVIDERS: ADMIT Hospitalist; ATTEND Hospitalist
DX: K29.70 Gastritis, unspecified, without bleeding (principal); K29.80 Duodenitis without bleeding; D72.829 Elevated white blood cell count, unspecified; I10 Essential (primary) hypertension; F10.20 Alcohol dependence, uncomplicated; R74.8 Abnormal levels of other serum enzymes; R74.01 Elevation of levels of liver transaminase levels; F41.9 Anxiety disorder, unspecified; J45.909 Unspecified asthma, uncomplicated; F17.210 Nicotine dependence, cigarettes, uncomplicated; Z86.711 Personal history of pulmonary embolism; Z79.899 Other long term (current) drug therapy; Z88.0 Allergy status to penicillin
CPT/HCPCS: 96375 ×2; 96376; 96361; 96374; 99285; 36415; 80053; 82150; 83690; 85025; G0378 ×2; S4990; J0360; C9113 ×2; J1790

== ENCOUNTER 2022-05-16 22:01 | Observation (INO) | payer OTHER ==
--- NOTE | 2022-05-16 23:02 | ED ---
General Adult HPI - General Source: patient Mode of arrival: ambulatory Limitations: no limitations <Nino Badillo - Last Filed: 05/16/22 23:02> - General Source: patient, RN notes reviewed Mode of arrival: ambulatory Limitations: no limitations - History of Present Illness MD Complaint: Abdominal pain Onset/Timin -: days(s) Associated Symptoms: nausea/vomiting <Heather Livingston - Last Filed: 05/17/22 02:47> - General Chief complaint: Abdominal Pain Stated complaint: Reaction to medication Time Seen by Provider: 05/16/22 23:02 - History of Present Illness Initial comments: Dictation was produced using [employer] dictation software. please excuse any grammatical, word or spelling errors. Time seen by provider: 11:02 PM, 05/16/2022 Medical screening exam: 46-year-old male presents emergency Department with abdominal pain for the last 2 days. Patient was prescribed Carafate for symptom control however a filling his symptoms getting worse. Emesis nonbilious not bloody. No black or bloody stools. Patient complains of chills but no fevers. States his epigastric area. He supposed to have endoscopy performed by general surgeon for couple weeks. Visual Physical Exam Vital signs reviewed General: Well-appearing, nontoxic, mild distress secondary to abdominal pain Head: Normocephalic, atraumatic Eyes: PERRLA, EOMI ENT: Airway patent Chest: Nonlabored breathing Skin: No visual rash, normal skin tone Neuro: Alert and oriented 3 Musculoskeletal: No gross abnormalities (Nino Badillo) When I went to evaluate the patient, he reiterated the same symptoms as listed above. He does note that over the last 1-2 months he has been struggling with gastritis and has lost 16 pounds. (Heather Livingston) - Related Data Previous Rx's Medication Instructions Recorded Mag Hydrox/Al Hydrox/Simeth 5 ml PO AC-TID #200 ml 03/19/22 [Maalox] Ondansetron Odt [Zofran Odt] 4 mg PO Q8HR PRN #30 tab 03/19/22 Pantoprazole [Protonix] 40 mg PO BID #30 tab 03/19/22 Allergies Allergy/AdvReac Type Severity Reaction Status Date / Time Penicillins Allergy Swelling Verified 05/16/22 22:06 Review of Systems ROS Other: All systems not noted in ROS Statement are negative. <Nino Badillo - Last Filed: 05/16/22 23:02> ROS Other: All systems not noted in ROS Statement are negative. <Heather Livingston - Last Filed: 05/17/22 02:47> ROS Statement: Those systems with pertinent positive or pertinent negative responses have been documented in the HPI. Past Medical History Past Medical History: Asthma, Pulmonary Embolus (PE) History of Any Multi-Drug Resistant Organisms: None Reported Past Surgical History: Orthopedic Surgery Additional Past Surgical History / Comment(s): dental surgery. clavicle Past Anesthesia/Blood Transfusion Reactions: No Reported Reaction Past Psychological History: Anxiety Smoking Status: Current every day smoker Past Alcohol Use History: Occasional Past Drug Use History: None Reported <Nino Badillo - Last Filed: 05/16/22 23:02> General Exam Limitations: no limitations <Nino Badillo - Last Filed: 05/16/22 23:02> Limitations: no limitations General appearance: alert, in no apparent distress Head exam: Present: atraumatic, normocephalic, normal inspection Respiratory exam: Present: normal lung sounds bilaterally. Absent: respiratory distress, wheezes, rales, rhonchi, stridor Cardiovascular Exam: Present: regular rate, normal rhythm, normal heart sounds. Absent: systolic murmur, diastolic murmur, rubs, gallop, clicks GI/Abdominal exam: Present: soft, tenderness (epigastric), normal bowel sounds. Absent: distended Neurological exam: Present: alert, oriented X3, CN II-XII intact Psychiatric exam: Present: normal affect, normal mood Skin exam: Present: warm, dry, intact, normal color. Absent: rash <Heather Livingston - Last Filed: 05/17/22 02:47> Course Vital Signs 05/16/22 22:02 Temperature 98.0 F Pulse Rate 69 Respiratory 20 Rate Blood Pressure 137/77 O2 Sat by Pulse 99 Oximetry Medical Decision Making - Lab Data Result diagrams: 05/16/22 23:36 05/16/22 23:34 - Radiology Data Radiology results: report reviewed, image reviewed <Heather Livingston - Last Filed: 05/17/22 02:47> - Medical Decision Making This is a 46-year-old male who presents to the emergency department for abdominal pain, nausea, and vomiting. Was pt. sent in by a medical professional or institution? @ -No Did you speak to anyone other than the patient for history? @ -No Did you review nursing and triage notes? @ -Yes, and I agree, it is accurate with regards to the patient's symptoms. Were old charts reviewed? @ -No Differential Diagnosis? @ -Differential Abdominal Pain Men: Appendicitis, cholecystitis, diverticulosis, ischemic bowel, pancreatitis, hepatitis, UTI, gastroenteritis, AAA, incarcerated hernia, bowel obstruction, constipation, inflammatory bowel, hepatitis, peptic ulcer disease, splenic infarction, perforated viscus, testicular torsion, this is not meant to be an all-inclusive list U/S interpreted by me (1pt. min.)? @ -Gallbladder US obtained. My interpretation identifies no evidence of cholelithiasis or gallbladder wall thickening. What testing was considered but not performed? (CT, X-rays, U/S, labs)? Why? @ -None What meds were considered but not given? Why? @ -None Did you discuss the management of the patient with other professionals? @ -No Did you reconcile home meds? @ -No Was smoking cessation discussed for >3mins.? @ -No Was critical care preformed (if so, how long)? @ -No Were there social determinants of health that impacted care today? How? (Homelessness, low income, unemployed, alcoholism, drug addiction, transportation, low edu. Level, literacy, decrease access to med. care, assisted, rehab)? @ -No Was there de-escalation of care discussed even if they declined? (Discuss DNR or withdrawal of care, Hospice)? @ -No What co-morbidities impacted this encounter? (DM, HTN, Smoking, COPD, CAD, Cancer, CVA, Hep., AIDS, mental health diagnosis, sleep apnea, morbid obesity)? @ -None Was patient admitted / discharged? @ -Admitted. Lab work obtained revealing leukocytosis and an elevated lipase of 948 at greater than 3x the limit of normal suggesting acute pancreatitis. Gallbladder US obtained revealing no evidence of cholelithiasis or acute cholecystitis. In discussion with the patient, he denies any known history of pancreatitis. He does report a history of alcohol abuse. He used to drink 6 beers daily, but has cut back over the last 1-2 months due to the ongoing problems with gastritis. Unsure if he has ever been told that he has elevated triglycerides. Lipid panel was ordered with results pending at the time of admission. Patient states that he follows with Dr. Pierre, who is planning to do an EGD next month. States that she told him if he develops severe pain, he should come to this hospital and she should be contacted. For this reason, Dr. Pierre listed as a consult for the patient. Patient admitted to medicine. 1 L bolus of IV fluids was administered initially and he was started on maintenance fluids at 130 mL an hour. Will keep NPO for the meantime. Admitting team will advance his diet as tolerated. Undiagnosed new problem with uncertain prognosis? @ -None Drug Therapy requiring intensive monitoring for toxicity (Heparin, Nitro, Insulin, Cardizem)? @ -None Were any procedures done? @ -None Diagnosis/symptom? @ -Acute pancreatitis Acute, or Chronic, or Acute on Chronic? @ -Acute Uncomplicated (without systemic symptoms) or Complicated (systemic symptoms)? @ -Complicated Side effects of treatment? @ -None Exacerbation, Progression, or Severe Exacerbation] @ -Not applicable Poses a threat to life or bodily function? @ -Yes This case was discussed in detail with the attending ED physician, Dr. Badillo. Presentation, findings, and treatment plan discussed in detail as well. (Heather Livingston) - Lab Data Lab Results 05/16/22 05/16/22 05/16/22 Range/Units 23:34 23:34 23:36 WBC 13.4 H (3.8-10.6) k/uL RBC 5.25 (4.30-5.90) m/uL Hgb 16.3 (13.0-17.5) gm/dL Hct 47.9 (39.0-53.0) % MCV 91.3 (80.0-100.0) fL MCH 31.0 (25.0-35.0) pg MCHC 34.0 (31.0-37.0) g/dL RDW 12.2 (11.5-15.5) % Plt Count 437 (150-450) k/uL MPV 8.2 Neutrophils % 84 % Lymphocytes % 10 % Monocytes % 4 % Eosinophils % 1 % Basophils % 0 % Neutrophils # 11.2 H (1.3-7.7) k/uL Lymphocytes # 1.4 (1.0-4.8) k/uL Monocytes # 0.5 (0-1.0) k/uL Eosinophils # 0.2 (0-0.7) k/uL Basophils # 0.1 (0-0.2) k/uL Sodium 143 (137-145) mmol/L Potassium 4.2 (3.5-5.1) mmol/L Chloride 105 (98-107) mmol/L Carbon Dioxide 28 (22-30) mmol/L Anion Gap 10 mmol/L BUN 7 L (9-20) mg/dL Creatinine 0.80 (0.66-1.25) mg/dL Est GFR (CKD-EPI)AfAm >90 (>60 ml/min/1.73 sqM) Est GFR (CKD-EPI)NonAf >90 (>60 ml/min/1.73 sqM) Glucose 121 H (74-99) mg/dL Plasma Lactic Acid Masood 1.6 (0.7-2.0) mmol/L Calcium 10.1 (8.4-10.2) mg/dL Total Bilirubin 0.9 (0.2-1.3) mg/dL AST 20 (17-59) U/L ALT 24 (4-49) U/L Alkaline Phosphatase 63 (38-126) U/L Total Protein 7.8 (6.3-8.2) g/dL Albumin 4.8 (3.5-5.0) g/dL Lipase 948 H (23-300) U/L Disposition <Nino Badillo - Last Filed: 05/16/22 23:02> <Heather Livingston - Last Filed: 05/17/22 02:47> Clinical Impression: Acute pancreatitis Disposition: ADMITTED IP TO THIS HOSP
[2022-05-17 00:16] LABS: Basophils # (A) 0.1 k/uL (0-0.2); Basophils % (A) 0 %; Eosinophils # (A) 0.2 k/uL (0-0.7); Eosinophils % (A) 1 %; HCT 47.9 % (39.0-53.0); HGB 16.3 gm/dL (13.0-17.5); Lymphocytes # (A) 1.4 k/uL (1.0-4.8); Lymphocytes % (A) 10 %; MCV 91.3 fL (80.0-100.0); Mean Platelet Volume 8.2; Monocytes # (A) 0.5 k/uL (0-1.0); Monocytes % (A) 4 %; Neutrophils # (A) 11.2 k/uL (1.3-7.7); Neutrophils % (A) 84 %; Platelet Count 437 k/uL (150-450); RBC 5.25 m/uL (4.30-5.90); RDW 12.2 % (11.5-15.5); WBC 13.4 k/uL (3.8-10.6)
[2022-05-17 00:31] LABS: ALT 24 U/L (4-49); AST 20 U/L (17-59); African American GFR (CKD) >90 (>60 ml/min/1.73 sqM); Albumin 4.8 g/dL (3.5-5.0); Alkaline Phosphatase 63 U/L (38-126); Anion Gap 10 mmol/L; Blood Urea Nitrogen 7 mg/dL (9-20); Calcium 10.1 mg/dL (8.4-10.2); Carbon Dioxide 28 mmol/L (22-30); Chloride 105 mmol/L (98-107); Glucose 121 mg/dL (74-99); Lipase 948 U/L (23-300); Non-African American GFR(CKD) >90 (>60 ml/min/1.73 sqM); Potassium 4.2 mmol/L (3.5-5.1); Sodium 143 mmol/L (137-145); Total Bilirubin 0.9 mg/dL (0.2-1.3); Total Protein 7.8 g/dL (6.3-8.2)
[2022-05-17] MEDS ORDERED: KETOROLAC 15 MG/ML 1 ML VIAL IVP STA (01:18)
[2022-05-17] MEDS ORDERED: SODIUM CHLORIDE 0.9% 1,000 ML IV STA ×2 (01:18)
--- NOTE | 2022-05-17 01:39 | US ---
EXAMINATION TYPE: US gallbladder DATE OF EXAM: 05/17/2022 COMPARISON: CT:03/18/22 CLINICAL HISTORY: Epigastric pain. pancreatitis, Pt in extreme pain during exam TECHNIQUE: Multiple sonographic images of the right upper quadrant are obtained. FINDINGS: EXAM MEASUREMENTS: Liver Length: 15.4 cm Gallbladder Wall: 0.15 cm CBD: 0.26 cm Right Kidney: 11.3 x 5.0 x 4.7 CHEMICAL PRODUCTION ENGINEER NOTES: Pancreas: Appears wnl Liver: wnl Gallbladder: wnl Evidence for sonographic Ashley's sign: Yes CBD: wnl Right Kidney: wnl IMPRESSION: Normal exam. No gallstones or dilated ducts.
[2022-05-17] MEDS ORDERED: NALOXONE 0.4 MG/ML 1 ML VIAL IV PRN (01:43)
[2022-05-17] MEDS ORDERED: IBUPROFEN 400 MG TAB PO PRN (01:43)
[2022-05-17] MEDS ORDERED: ONDANSETRON 4 MG/2 ML VIAL IVP PRN (01:43)
[2022-05-17] MEDS ORDERED: ACETAMINOPHEN TAB 325 MG TAB PO PRN (01:43)
[2022-05-17] MEDS ORDERED: HYDROmorphone 0.5 MG/0.5 ML SYRINGE IVP PRN (01:43)
[2022-05-17] MEDS ORDERED: KETOROLAC 15 MG/ML 1 ML VIAL IVP PRN (01:43)
[2022-05-17] MEDS: MORPHINE SULFATE 4 MG/ML SYRINGE IV PRN ×4 (07:34→21:06)
[2022-05-17] MEDS: PANTOPRAZOLE 40 MG/10 ML VIAL IV SCH (07:35)
[2022-05-17 10:27] LABS: LDL Cholesterol,Calculated 167.4 mg/dL (0.0-131.0)
[2022-05-17] MEDS ORDERED: SODIUM CHLORIDE 0.9% 1,000 ML IV ONE (10:27)
[2022-05-17] MEDS: SODIUM CHLORIDE 0.9% 1,000 ML IV SCH ×3 (11:18→21:06)
--- NOTE | 2022-05-17 13:25 | P.GSCN ---
History of Present Illness Consult date: 05/17/22 History of present illness: CHIEF COMPLAINT: Abdominal pain HISTORY OF PRESENT ILLNESS: This is a 46-year-old male who presents to the hospital with 2 days of epigastric abdominal pain. He also is having nausea and vomiting. Reports a decrease in appetite. He reports normal bowel movements. Denies any prior history of pancreatitis. His last alcoholic beverage was about 10 days ago. Patient does have a history of gastritis. And was supposed to have an EGD with Dr. Pierre in 1 month. Patient was found to have evidence of acute pancreatitis. Lipase was elevated on admission. Gallbladder ultrasound showed no evidence of gallstones. PAST MEDICAL HISTORY: See list. PAST SURGICAL HISTORY: See list. MEDICATIONS: See list. ALLERGIES: See list. SOCIAL HISTORY: No illicit drug use. REVIEW OF SYSTEMS: CONSTITUTIONAL: Denies fever or chills. HEENT: Denies blurred vision, vision changes, or eye pain. Denies hemoptysis ENDOCRINE: Denies heat or cold intolerance. CARDIOVASCULAR: Denies chest pain or pressure. RESPIRATORY: No shortness of breath. GASTROINTESTINAL: Denies abdominal pain. Denies nausea or vomiting. NEURO: Denies history of seizures. PSYCH: No depression or suicidal ideation HEMATOLOGIC: Denies bleeding disorders. LYMPHATIC: The patient denies any lumps and bumps around the neck. GENITOURINARY: Denies any blood in urine or increased urinary frequency. MUSCULOSKELETAL: Denies myalgias. Denies joint swelling. Denies decreased range of motion beyond patients baseline. SKIN: Denies pruitis. Denies rash. PHYSICAL EXAM: VITAL SIGNS: Reviewed GENERAL: Well-developed in no acute distress. HEENT: No sclera icterus. Extraocular movements grossly intact. Moist buccal mucosa. Head is atraumatic, normocephalic. Hears conversational speech. No nasal drainage. NECK: Supple without lymphadenopathy. CHEST: Non-labored respirations and equal bilateral excursions. CARDIOVASCULAR: Palpable 2+ radial pulses. ABDOMEN: Soft. Nondistended. Epigastric tenderness MUSCULOSKELETAL: No clubbing or cyanosis. NEUROLOGIC: No focal or lateralizing signs. Cranial nerves II through XII grossly intact. PSYCH: Appropriate affect. Alert and oriented to person, place and time. SKIN: Well perfused. Good skin turgor. LABORATORY DATA: WBC 13.4 Hgb 16.3 platelets 437 Sodium 143 potassium 4.2 creatinine 0.80 Lactic acid 1.6 LFTs normal Triglyceride level 235 IMAGING: Abdominal ultrasound normal exam. No gallstones or dilated ducts ASSESSMENT: 1. Acute pancreatitis 2. Epigastric abdominal pain 3. History of alcohol use 4. Leukocytosis 5. History of gastritis 6. History of duodenitis PLAN: -Keep patient nothing by mouth except for ice chips -Continue bowel rest -Continue IV fluids -Continue pain medication as needed -Continue supportive care -Further recommendations forthcoming regarding EGD Physician Financial Rep note has been reviewed by physician. Signing provider agrees with the documented findings, assessment, and plan of care. Past Medical History Past Medical History: Asthma, Pulmonary Embolus (PE) History of Any Multi-Drug Resistant Organisms: None Reported Past Surgical History: Orthopedic Surgery Additional Past Surgical History / Comment(s): dental surgery. clavicle Past Anesthesia/Blood Transfusion Reactions: No Reported Reaction Past Psychological History: Anxiety Smoking Status: Current every day smoker Past Alcohol Use History: Occasional Past Drug Use History: None Reported Medications and Allergies Home Medications Medication Instructions Recorded Confirmed Type Ondansetron Odt [Zofran Odt] 4 mg PO Q8HR PRN #30 tab 03/19/22 05/17/22 Rx Pantoprazole [Protonix] 40 mg PO BID #30 tab 03/19/22 05/17/22 Rx Sucralfate [Carafate] 1 gm PO ACHS 05/17/22 05/17/22 History Allergies Allergy/AdvReac Type Severity Reaction Status Date / Time Penicillins Allergy Swelling Verified 05/17/22 07:34 Surgical - Exam Vital Signs Temp Pulse Resp BP Pulse Ox 98.0 F 69 20 137/77 99 05/16/22 22:02 05/16/22 22:02 05/16/22 22:02 05/16/22 22:02 05/16/22 22:02 Results - Labs 05/16/22 23:36 05/16/22 23:34 Abnormal Lab Results - Last 24 Hours (Table) 05/16/22 05/16/22 Range/Units 23:34 23:36 WBC 13.4 H (3.8-10.6) k/uL Neutrophils # 11.2 H (1.3-7.7) k/uL BUN 7 L (9-20) mg/dL Glucose 121 H (74-99) mg/dL Lipase 948 H (23-300) U/L Diabetes panel 05/16/22 Range/Units 23:34 Sodium 143 (137-145) mmol/L Potassium 4.2 (3.5-5.1) mmol/L Chloride 105 (98-107) mmol/L Carbon Dioxide 28 (22-30) mmol/L BUN 7 L (9-20) mg/dL Creatinine 0.80 (0.66-1.25) mg/dL Glucose 121 H (74-99) mg/dL Calcium 10.1 (8.4-10.2) mg/dL AST 20 (17-59) U/L ALT 24 (4-49) U/L Alkaline Phosphatase 63 (38-126) U/L Total Protein 7.8 (6.3-8.2) g/dL Albumin 4.8 (3.5-5.0) g/dL Calcium panel 05/16/22 Range/Units 23:34 Calcium 10.1 (8.4-10.2) mg/dL Albumin 4.8 (3.5-5.0) g/dL Pituitary panel 05/16/22 Range/Units 23:34 Sodium 143 (137-145) mmol/L Potassium 4.2 (3.5-5.1) mmol/L Chloride 105 (98-107) mmol/L Carbon Dioxide 28 (22-30) mmol/L BUN 7 L (9-20) mg/dL Creatinine 0.80 (0.66-1.25) mg/dL Glucose 121 H (74-99) mg/dL Calcium 10.1 (8.4-10.2) mg/dL Adrenal panel 05/16/22 Range/Units 23:34 Sodium 143 (137-145) mmol/L Potassium 4.2 (3.5-5.1) mmol/L Chloride 105 (98-107) mmol/L Carbon Dioxide 28 (22-30) mmol/L BUN 7 L (9-20) mg/dL Creatinine 0.80 (0.66-1.25) mg/dL Glucose 121 H (74-99) mg/dL Calcium 10.1 (8.4-10.2) mg/dL Total Bilirubin 0.9 (0.2-1.3) mg/dL AST 20 (17-59) U/L ALT 24 (4-49) U/L Alkaline Phosphatase 63 (38-126) U/L Total Protein 7.8 (6.3-8.2) g/dL Albumin 4.8 (3.5-5.0) g/dL
--- NOTE | 2022-05-17 17:29 | NM ---
EXAMINATION TYPE: NM hepatobiliary wo EF DATE OF EXAM: 05/17/2022 5:07 PM COMPARISON: Ultrasound 05/17/2022 CLINICAL INDICATION:Male, 46 years old with history of Cholecystitis; TECHNIQUE: The patient was given 4.9 mCi of Technetium 99m-Mebrofenin as a radiotracer and multiple scintigraphic images were obtained of the abdomen. FINDINGS: Normal uptake of radiotracer was identified within the liver with excretion into the hepatic and comm on biliary ducts within 16 minutes. There was normal progressive washout of the liver over the course of the study. Radiotracer uptake within the gallbladder 18 minutes as well as small bowel activity w as identified at 46 minutes. IMPRESSION: Normal hepatobiliary scan. No evidence for cholecystitis.
--- NOTE | 2022-05-17 21:57 | HP ---
HISTORY AND PHYSICAL CHIEF COMPLAINT: Epigastric pain. HISTORY OF PRESENT ILLNESS: This gentleman presented to the emergency room with epigastric pain and had chemical evidence of pancreatitis. He denies drinking. He has had no fever, chills, back pain, nausea, vomiting, hematemesis, gallbladder symptoms, etc. He states that it is caused by "a little pink pill". It is not clear what this is. He was seen in my office last in July of 2019. He does look as though he is taking some medications from somebody now. REVIEW OF SYSTEMS: Otherwise, noncontributory. Past medical history, family history, and personal and social histories are apparently noncontributory. SOCIAL HISTORY: He denies heavy alcohol consumption. PHYSICAL EXAMINATION: VITAL SIGNS: Blood pressure 137/86 with a pulse of 81, respirations of 22. He is afebrile. GENERAL: He appeared to be well developed, well nourished, in no acute distress. SKIN: Color is normal. Skin is warm and dry. LYMPHATICS: Lymph nodes are not enlarged. HEAD, EARS, EYES, NOSE, MOUTH, AND THROAT: Normal. NECK: Neck veins are not distended. Thyroid is not enlarged. CHEST: Clear. CARDIAC: Demonstrates normal sinus rhythm with no murmurs or extra sounds. ABDOMEN: He is tender over the epigastrium. There are no masses or visceromegaly. There is no rebound or referred tenderness. Bowel sounds are present. EXTREMITIES: Normal. NEUROLOGIC: Intact. DIAGNOSIS: He is admitted to the hospital with diagnoses of pancreatitis. PLAN: 1. Bed rest. 2. IV fluids. 3. Analgesics. MMODL / IJN: [id number] /
[2022-05-18] MEDS: MORPHINE SULFATE 4 MG/ML SYRINGE IV PRN (02:35)
[2022-05-18] MEDS: SODIUM CHLORIDE 0.9% 1,000 ML IV SCH ×2 (02:36→11:11)
[2022-05-18] MEDS: PANTOPRAZOLE 40 MG/10 ML VIAL IV SCH (08:24)
[2022-05-18 10:26] LABS: Basophils % (A) 1 %; Eosinophils # (A) 0.5 k/uL (0-0.7); Eosinophils % (A) 6 %; HCT 39.7 % (39.0-53.0); Lymphocytes # (A) 2.6 k/uL (1.0-4.8); Lymphocytes % (A) 28 %; MCH 30.1 pg (25.0-35.0); MCHC 32.8 g/dL (31.0-37.0); MCV 91.9 fL (80.0-100.0); Mean Platelet Volume 7.5; Monocytes # (A) 0.4 k/uL (0-1.0); Monocytes % (A) 4 %; Neutrophils # (A) 5.6 k/uL (1.3-7.7); Neutrophils % (A) 60 %; Platelet Count 360 k/uL (150-450); RBC 4.32 m/uL (4.30-5.90); RDW 12.3 % (11.5-15.5); WBC 9.3 k/uL (3.8-10.6)
[2022-05-18 10:35] LABS: ALT 16 U/L (4-49); AST 15 U/L (17-59); African American GFR (CKD) >90 (>60 ml/min/1.73 sqM); Albumin 3.2 g/dL (3.5-5.0); Albumin/Globulin Ratio 1.3; Alkaline Phosphatase 37 U/L (38-126); Anion Gap 5 mmol/L; Blood Urea Nitrogen 10 mg/dL (9-20); Calcium 8.7 mg/dL (8.4-10.2); Carbon Dioxide 25 mmol/L (22-30); Chloride 110 mmol/L (98-107); Globulin 2.4 g/dL; Glucose 90 mg/dL (74-99); Lipase 314 U/L (23-300); Non-African American GFR(CKD) >90 (>60 ml/min/1.73 sqM); Potassium 3.6 mmol/L (3.5-5.1); Sodium 140 mmol/L (137-145); Total Bilirubin 0.8 mg/dL (0.2-1.3); Total Protein 5.6 g/dL (6.3-8.2)
[2022-05-18] MEDS ORDERED: SODIUM CHLORIDE 0.9% 500 ML 500 ML IV ONE (10:37)
[2022-05-18] MEDS ORDERED: PROPOFOL 10 MG/ML 20 ML VIAL IV ONE (10:48)
[2022-05-18] MEDS ORDERED: LIDOCAINE 2% INJ 20 MG/ML (2 ML VIAL) ONE (10:48)
--- NOTE | 2022-05-18 12:41 | P.PCN ---
Date of Procedure: 05/18/22 Description of Procedure: PREOPERATIVE DIAGNOSIS: Duodenitis with pancreatitis Epigastric abdominal pain POSTOPERATIVE DIAGNOSIS: Gastritis without acute bleeding, chronic Diaphragmatic hiatal hernia Gastroesophageal reflux disease with cirrhosis esophagitis OPERATION: Esophagogastroduodenoscopy with biopsies along antrum and duodenum SURGEON: Nery Pierre MD ANESTHESIA: MAC. INDICATIONS: The patient is a 46-year-old male who presents with acute epigastric pain including recent duodenitis and pancreatitis. Benefits and risks of the procedure were described. Informed consent was obtained. DESCRIPTION: The patient was brought into the endoscopy suite and laid in the left lateral decubitus position. An Olympus gastroscope was passed along the posterior oropharynx down to the distal esophagus where the squamocolumnar junction was encountered at 38 cm from the incisors. The stomach was entered and no bile reflux was found. Additional findings are listed below. Biopsies with cold forceps were obtained of the antrum. The first through third portion of the duodenum was examined. Retroflexion of the scope confirmed Hill grade 3 lower esophageal valve. The squamocolumnar junction demonstrated LA grade B erosive esophagitis. The stomach was desufflated. The patient tolerated the procedure well. FINDINGS: Squamocolumnar junction 38 cm from the incisors. Diaphragmatic hiatus at 39 cm. Hiatal hernia, 1 cm Hill grade 2 lower esophageal valve. LA grade B erosive esophagitis. Biopsies obtained of duodenum with resolved duodenitis Chronic gastritis without recent bleed RECOMMENDATIONS: Upper endoscopy as needed. May start clear liquid diet
[2022-05-18 14:16] VITALS: BMI 28.4
[2022-05-18 20:45] VITALS: TEMP 98.5
--- NOTE | 2022-05-18 23:00 | PN ---
PROGRESS NOTE CHIEF COMPLAINT: Pancreatitis. HISTORY OF PRESENT ILLNESS: This gentleman is doing well and he is not vomiting. Pain is gone. He is going down for upper GI endoscopy today for reasons which are not clear. PHYSICAL EXAMINATION: CHEST: Clear. CARDIAC: Normal. ABDOMEN: Soft and nontender. Bowel sounds are present. IMPRESSION: Pancreatitis. PLAN: He can probably go home anytime. MMODL / IJN: [id number] /
[2022-05-19] MEDS: SODIUM CHLORIDE 0.9% 1,000 ML IV SCH ×2 (02:38→09:55)
[2022-05-19 08:10] VITALS: BP 136/73; PULSE 45; RESP 16
[2022-05-19] MEDS: PANTOPRAZOLE 40 MG/10 ML VIAL IV SCH (08:52)
--- NOTE | 2022-05-19 09:45 | P.PN ---
Progress Note - Text Progress Note Date: 05/19/22 Patient feels well. He wishes to go home. He denies any significant pain. On exam vital signs are stable. Abdomen soft. There is minimal epigastric tenderness. Resolving hepatitis. Patient was discharged home by the medical service.
--- NOTE | 2022-05-20 23:55 | DS ---
DISCHARGE SUMMARY CHIEF COMPLAINT: Abdominal pain. HISTORY OF PRESENT ILLNESS AND PHYSICAL EXAMINATION: Details of this man's history and physical can be found in the initial workup. LABORATORY STUDIES: While he was in the hospital, he had laboratory studies, details of which can be found in the laboratory section of his chart. COURSE IN THE HOSPITAL: After admission, he was placed on bedrest, started on intravenous fluids and had no further trouble with vomiting. Abdominal pain slowly subsided and he is doing well. Surgery took him to the operating room for upper GI endoscopy. There was no clear-cut reason for this procedure. He was doing well and it was felt that he could be discharged on the and go home on light activity about the house, and he will be followed up in my office in a day or 2. FINAL DIAGNOSIS: Pancreatitis. OPERATIONS: Upper GI endoscopy. CONSULTATIONS: Surgery. CONDITION: He is improved. MMFLORA / HONEY: [id number] /
== END 2022-05-19 10:59 | disposition home or self-care (01) ==
LOC: EC 22:01 → INTOOBSV 05-17 01:45 → 5NMEDONC 05-17 01:45 → UNDODISIN 05-19 10:59
PROVIDERS: ADMIT Family Medicine; ATTEND Family Medicine
DX: K85.90 Acute pancreatitis without necrosis or infection, unspecified (principal); K29.50 Unspecified chronic gastritis without bleeding; K21.9 Gastro-esophageal reflux disease without esophagitis; J45.909 Unspecified asthma, uncomplicated; K22.10 Ulcer of esophagus without bleeding; K44.9 Diaphragmatic hernia without obstruction or gangrene; F41.9 Anxiety disorder, unspecified; F17.200 Nicotine dependence, unspecified, uncomplicated; Z79.899 Other long term (current) drug therapy; Z86.711 Personal history of pulmonary embolism
CPT/HCPCS: 96376 ×4; 96361 ×3; 96374; 96375; 99285; 36415; 93005; 88305; 80061; 80053 ×2; 83605; 83690 ×2; 85025 ×2; 76705; 78226; 43239; G0378 ×3; A9537; J2270 ×2; J2405; J1885; J2704; C9113 ×3; J1170; J2001

== ENCOUNTER 2022-08-12 15:58 | Emergency (ER) | payer OTHER ==
--- NOTE | 2022-08-12 16:14 | ED ---
Nausea/Vomiting/Diarrhea HPI - General Source: patient, RN notes reviewed Mode of arrival: ambulatory Limitations: no limitations <Hank Barrientos Jl - Last Filed: 08/12/22 16:12> - General Source: patient, RN notes reviewed Mode of arrival: ambulatory Limitations: no limitations <Beata Trejo - Last Filed: 08/12/22 23:30> - General Chief complaint: Nausea/Vomiting/Diarrhea Stated complaint: Vomiting Time Seen by Provider: 08/12/22 16:12 - History of Present Illness Initial comments: 26-year-old male presents emergency Department chief complaint of abdominal pain, nausea vomiting. Patient states he was seen at [facility] yesterday. Patient states he had normal labs or studies. Patient does have history of hepatitis. Patient states she's been drinking couple weeks. Patient states pain feels very similar. He doesn't his been taking pain pills. (Hank Barrientos) 46-year-old male presents to the emergency department chief complaint of abdominal pain, nausea, vomiting 3 days. Patient states that he was seen at [facility] yesterday for the same complaint. Patient states that he has a history of pancreatitis and this pain feels the same as his prior episodes of pancreatitis and gastritis. He states that he has been taking Hope daily fo r the past month for the pain. He states that the pain is improved with laying on his left side curled up in a ball. He states that he was diagnosed with a urinary tract infection yesterday at [facility] and was prescribed ciprofloxacin. He also was given Reglan 10 mg to take for nausea but he reports he does not have any improvement with the medication. He reports his last bowel movement was 3 days ago. He denies urinary frequency, dysuria, hematuria. Denies fever, chills. (Baeta Trejo) - Related Data Home Medications Medication Instructions Recorded Confirmed Ciprofloxacin HCl [Cipro] 500 mg PO BID 08/12/22 08/12/22 Metoclopramide [Reglan] 10 mg PO ACHS PRN 08/12/22 08/12/22 Previous Rx's Medication Instructions Recorded Ondansetron Odt [Zofran Odt] 4 mg PO Q8HR PRN #30 tab 03/19/22 Omeprazole [PriLOSEC] 20 mg PO AC-BRKFST #14 cap 08/12/22 Ondansetron Odt [Zofran Odt] 4 mg PO Q8HR PRN #10 tab 08/12/22 Allergies Allergy/AdvReac Type Severity Reaction Status Date / Time Penicillins Allergy Swelling Verified 08/12/22 16:11 Review of Systems ROS Other: All systems not noted in ROS Statement are negative. <Hank Barrientos - Last Filed: 08/12/22 16:12> ROS Other: All systems not noted in ROS Statement are negative. <Beata Trejo - Last Filed: 08/12/22 23:30> ROS Statement: Those systems with pertinent positive or pertinent negative responses have been documented in the HPI. Past Medical History Past Medical History: Asthma, Pulmonary Embolus (PE) Additional Past Medical History / Comment(s): current ETOH (1 pack of beer per day), current smoker, Pancreatitis History of Any Multi-Drug Resistant Organisms: None Reported Past Surgical History: Orthopedic Surgery Additional Past Surgical History / Comment(s): dental surgery. clavicle Past Anesthesia/Blood Transfusion Reactions: No Reported Reaction Past Psychological History: Anxiety Smoking Status: Current every day smoker Past Alcohol Use History: Occasional Past Drug Use History: None Reported <Hank Barrientos - Last Filed: 08/12/22 16:12> General Exam Limitations: no limitations <Hank Barrientos - Last Filed: 08/12/22 16:12> Limitations: no limitations General appearance: alert, in no apparent distress Head exam: Present: atraumatic, normocephalic, normal inspection Eye exam: Present: normal appearance, PERRL, EOMI. Absent: scleral icterus, conjunctival injection, periorbital swelling ENT exam: Present: normal exam, mucous membranes moist Neck exam: Present: normal inspection. Absent: tenderness, meningismus, lymphadenopathy Respiratory exam: Present: normal lung sounds bilaterally. Absent: respiratory distress, wheezes, rales, rhonchi, stridor Cardiovascular Exam: Present: regular rate, normal rhythm, normal heart sounds. Absent: systolic murmur, diastolic murmur, rubs, gallop, clicks GI/Abdominal exam: Present: soft, guarding (self guarding), normal bowel sounds Extremities exam: Present: normal inspection, full ROM, normal capillary refill, other (DP and PT pulses 2+). Absent: tenderness, pedal edema, joint swelling, calf tenderness Back exam: Present: normal inspection Neurological exam: Present: alert, oriented X3 Psychiatric exam: Present: normal affect, normal mood Skin exam: Present: warm, dry, intact, normal color. Absent: rash <Beata Trejo - Last Filed: 08/12/22 23:30> - General Exam Comments Initial Comments: Visual Physical Exam Vital signs reviewed General: Well-appearing, nontoxic, no acute distress. Head: Normocephalic, atraumatic Eyes: PERRLA, EOMI ENT: Airway patent Chest: Nonlabored breathing Skin: No visual rash, normal skin tone Neuro: Alert and oriented 3 Musculoskeletal: No gross abnormalities (Hank Barrientos) Course Vital Signs 08/12/22 08/12/22 08/12/22 16:09 22:00 22:22 Temperature 98.4 F 98.9 F Pulse Rate 64 53 L Respiratory 20 16 Rate Blood Pressure 143/100 143/100 O2 Sat by Pulse 100 98 99 Oximetry 08/12/22 22:46 Temperature 98.9 F Pulse Rate 60 Respiratory 18 Rate Blood Pressure O2 Sat by Pulse Oximetry Medical Decision Making - Lab Data Result diagrams: 08/12/22 17:47 08/12/22 17:47 <Beata Trejo - Last Filed: 08/12/22 23:30> - Medical Decision Making Was pt. sent in by a medical professional or institution (PAT Danielle, [employer], urgent ca re, hospital, or fdc...) When possible be specific @ -No Did you speak to anyone other than the patient for history (EMS, parent, family, police, friend...)? What history was obtained from this source @ -No Did you review nursing and triage notes (agree or disagree)? Why? @ -I reviewed and agree with nursing and triage notes Were old charts reviewed (outside hosp., previous admission, EMS record, old EKG, old radiological studies, urgent care reports/EKG's, fdc records)? Report findings @ -No old charts were reviewed Differential Diagnosis (chest pain, altered mental status, abdominal pain women, abdominal pain men, vaginal bleeding, weakness, fever, dyspnea, syncope, headache, dizziness, GI bleed, back pain, seizure, CVA, palpatations, mental health, musculoskeletal)? @ -Differential Abdominal Pain Men: Appendicitis, cholecystitis, diverticulosis, ischemic bowel, pancreatitis, hepatitis, UTI, gastroenteritis, AAA, incarcerated hernia, bowel obstruction, constipation, inflammatory bowel, hepatitis, peptic ulcer disease, splenic infarction, perforated viscus, testicular torsion, this is not meant to be an all-inclusive list EKG interpreted by me (3pts min.). @ -None X-rays interpreted by me (1pt min.). @ -KUB XR was considered but patient declined CT interpreted by me (1pt min.). @ -None done U/S interpreted by me (1pt. min.). @ -None done What testing was considered but not performed or refused? (CT, X-rays, U/S, labs)? Why? @ -None What meds were considered but not given or refused? Why? @ -None Did you discuss the management of the patient with other professionals (professionals i.e. , PA, [employer], lab, RT, psych nurse, renal social worker, moving picture producer, teacher, activities officer, family caseworker)? Give summary @ -No Was smoking cessation discussed for >3mins.? @ -No Was critical care preformed (if so, how long)? @ -No Were there social determinants of health that impacted care today? How? (Homelessness, low income, unemployed, alcoholism, drug addiction, transportation, low edu. Level, literacy, decrease access to med. care, penitentiary, rehab)? @ -No Was there de-escalation of care discussed even if they declined (Discuss DNR or withdrawal of care, Hospice)? DNR status @ -No What co-morbidities impacted this encounter? (DM, HTN, Smoking, COPD, CAD, Ca ncer, CVA, ARF, Chemo, Hep., AIDS, mental health diagnosis, sleep apnea, morbid obesity)? @ -None Was patient admitted / discharged? Hospital course, mention meds given and route, prescriptions, significant lab abnormalities, going to OR and other pertinent info. @ -Discharged. Patient presented to emergency department chief complaint of a bdominal pain, nausea, vomiting 3 days. Patient reports a history of chronic abdominal pain and has had this same pain in the past. CBC shows white blood cell 12.1 likely reactive to vomiting, hemoglobin 16.0, hematocrit 47.1; CMP showed sodium 138, potassium 4.4, chloride 100, CO2 28, lipase 504; UA showed trace protein, 4+ ketones, moderate leukocyte esterase, white blood cells. He was given 2 L of normal saline, 15 mg Toradol, Zofran, 4 mg of morphine. Patient had improvement in his pain and nausea and is tolerating oral hydration. Patient is scheduled to undergo colonoscopy at the surgeon on Saturday. Advised patient to take prescribed medications for nausea and gastritis along wi th tylenol for pain. Patient agreeing with plan and advised on return precautions. Case discussed with my attending, Dr. Judge. Undiagnosed new problem with uncertain prognosis? @ -No Drug Therapy requiring intensive monitoring for toxicity (Heparin, Nitro, Insulin, Cardizem)? @ -No Were any procedures done? @ -No Diagnosis/symptom? @ -Nausea and vomiting Acute, or Chronic, or Acute on Chronic? @ -Acute Uncomplicated (without systemic symptoms) or Complicated (systemic symptoms)? @ -Uncomplicated Side effects of treatment? @ -No Exacerbation, Progression, or Severe Exacerbation? @ -No Poses a threat to life or bodily function? How? (Chest pain, USA, MA, pneumonia, PE, COPD, DKA, ARF, appy, cholecystitis, CVA, Diverticulitis, Homicidal, Suicidal, threat to staff... and all critical care pts) @ -No (Beata Trejo) - Lab Data Lab Results 08/12/22 08/12/22 08/12/22 Range/Units 17:47 17:47 20:59 WBC 12.1 H (3.8-10.6) k/uL RBC 5.48 (4.30-5.90) m/uL Hgb 16.0 (13.0-17.5) gm/dL Hct 47.1 (39.0-53.0) % MCV 86.0 (80.0-100.0) fL MCH 29.2 (25.0-35.0) pg MCHC 34.0 (31.0-37.0) g/dL RDW 13.0 (11.5-15.5) % Plt Count 345 (150-450) k/uL MPV 7.2 Neutrophils % 74 % Lymphocytes % 17 % Monocytes % 4 % Eosinophils % 4 % Basophils % 0 % Neutrophils # 8.9 H (1.3-7.7) k/uL Lymphocytes # 2.1 (1.0-4.8) k/uL Monocytes # 0.5 (0-1.0) k/uL Eosinophils # 0.4 (0-0.7) k/uL Basophils # 0.0 (0-0.2) k/uL Sodium 138 (137-145) mmol/L Potassium 4.4 (3.5-5.1) mmol/L Chloride 100 (98-107) mmol/L Carbon Dioxide 28 (22-30) mmol/L Anion Gap 10 mmol/L BUN 12 (9-20) mg/dL Creatinine 0.77 (0.66-1.25) mg/dL Est GFR (CKD-EPI)AfAm >90 (>60 ml/min/1.73 sqM) Est GFR (CKD-EPI)NonAf >90 (>60 ml/min/1.73 sqM) Glucose 95 (74-99) mg/dL Calcium 9.7 (8.4-10.2) mg/dL Magnesium 2.0 (1.6-2.3) mg/dL Total Bilirubin 1.2 (0.2-1.3) mg/dL AST 21 (17-59) U/L ALT 19 (4-49) U/L Alkaline Phosphatase 46 (38-126) U/L Total Protein 7.4 (6.3-8.2) g/dL Albumin 4.4 (3.5-5.0) g/dL Lipase 504 H (23-300) U/L Urine Color Yellow Urine Appearance Cloudy (Clear) Urine pH 6.5 (5.0-8.0) Ur Specific [place] 1.025 (1.001-1.035) Urine Protein Trace H (Negative) Urine Glucose (UA) Negative (Negative) Urine Ketones 4+ H (Negative) Urine Blood Negative (Negative) Urine Nitrite Negative (Negative) Urine Bilirubin Negative (Negative) Urine Urobilinogen 6.0 (<2.0) mg/dL Ur Leukocyte Esterase Moderate H (Negative) Urine RBC 7 H (0-5) /hpf Urine WBC 36 H (0-5) /hpf Ur Squamous Epith Cells 1 (0-4) /hpf Urine Mucus Many H (None) /hpf Serum Alcohol <10 mg/dL Disposition <Hank Barrientos - Last Filed: 08/12/22 16:12> Is patient prescribed a controlled substance at d/c from ED?: No Time of Disposition: 22:10 <Beata Trejo - Last Filed: 08/12/22 23:30> Clinical Impression: Nausea & vomiting Disposition: HOME SELF-CARE Condition: Stable Instructions (If sedation given, give patient instructions): Acute Nausea and Vomiting (ED) Additional Instructions: Take Tylenol as needed for pain. Please return to the emergency department for new or worsening symptoms. Prescriptions: Omeprazole [PriLOSEC] 20 mg PO AC-BRKFST #14 cap Ondansetron Odt [Zofran Odt] 4 mg PO Q8HR PRN #10 tab PRN Reason: Nausea Referrals: None,Stated [Primary Care Provider] - 1-2 days
[2022-08-12 17:52] LABS: Basophils % (A) 0 %; Eosinophils # (A) 0.4 k/uL (0-0.7); Eosinophils % (A) 4 %; HCT 47.1 % (39.0-53.0); Lymphocytes # (A) 2.1 k/uL (1.0-4.8); Lymphocytes % (A) 17 %; MCH 29.2 pg (25.0-35.0); Mean Platelet Volume 7.2; Monocytes # (A) 0.5 k/uL (0-1.0); Monocytes % (A) 4 %; Neutrophils # (A) 8.9 k/uL (1.3-7.7); Neutrophils % (A) 74 %; Platelet Count 345 k/uL (150-450); RBC 5.48 m/uL (4.30-5.90); WBC 12.1 k/uL (3.8-10.6)
[2022-08-12 18:06] LABS: ALT 19 U/L (4-49); AST 21 U/L (17-59); African American GFR (CKD) >90 (>60 ml/min/1.73 sqM); Albumin 4.4 g/dL (3.5-5.0); Alcohol <10 mg/dL; Alkaline Phosphatase 46 U/L (38-126); Anion Gap 10 mmol/L; Blood Urea Nitrogen 12 mg/dL (9-20); Calcium 9.7 mg/dL (8.4-10.2); Carbon Dioxide 28 mmol/L (22-30); Chloride 100 mmol/L (98-107); Glucose 95 mg/dL (74-99); Lipase 504 U/L (23-300); Non-African American GFR(CKD) >90 (>60 ml/min/1.73 sqM); Potassium 4.4 mmol/L (3.5-5.1); Sodium 138 mmol/L (137-145); Total Bilirubin 1.2 mg/dL (0.2-1.3); Total Protein 7.4 g/dL (6.3-8.2)
[2022-08-12] MEDS ORDERED: SODIUM CHLORIDE 0.9% 1,000 ML IV ONE (18:39)
[2022-08-12] MEDS ORDERED: KETOROLAC 15 MG/ML 1 ML VIAL IVP STA (18:39)
[2022-08-12] MEDS ORDERED: ONDANSETRON 4 MG/2 ML VIAL IVP STA (18:48)
[2022-08-12] MEDS ORDERED: SODIUM CHLORIDE 0.9% 1,000 ML IV STA (18:49)
[2022-08-12] MEDS ORDERED: MORPHINE SULFATE 4 MG/ML SYRINGE IVP STA (20:20)
[2022-08-12 21:14] LABS: Appearance,Urine Cloudy (Clear); Bilirubin,Urine Negative (Negative); Blood,Urine Negative (Negative); Color,Urine Yellow; Glucose,Urine (UA) Negative (Negative); Ketones,Urine 4+ (Negative); Leukocyte Esterase,Urine Moderate (Negative); Mucus,Urine Many /hpf; Nitrite,Urine Negative (Negative); PH, Urine 6.5 (5.0-8.0); Protein,Urine Trace (Negative); RBC,Urine 7 /hpf (0-5); Specific Gravity,Urine 1.025 (1.001-1.035); Squamous Epithelial Cell,Urine 1 /hpf (0-4); WBC,Urine 36 /hpf (0-5)
[2022-08-12 22:22] VITALS: BP 143/100; TEMP 98.9
[2022-08-12 22:47] VITALS: PULSE 60; RESP 18
== END 2022-08-12 22:54 | disposition home or self-care (01) ==
LOC: EC 15:58
DX: R11.2 Nausea with vomiting, unspecified (principal); J45.909 Unspecified asthma, uncomplicated; F17.200 Nicotine dependence, unspecified, uncomplicated; Z86.59 Personal history of other mental and behavioral disorders; Z88.0 Allergy status to penicillin
CPT/HCPCS: 36415; 80053; 83690; 83735; 85025; 81001; 99284; 96374; 96375 ×2; G0480; J2270; J2405; J1885; 80320

== ENCOUNTER 2022-08-16 07:27 | Day surgery (SDC) | payer OTHER ==
[2022-08-16] MEDS: LACTATED RINGERS 1,000 ML IV SCH ×2 (07:53→08:02)
[2022-08-16 07:54] VITALS: TEMP 97
--- NOTE | 2022-08-16 07:57 | P.GSHP ---
History of Present Illness H&P Date: 08/16/22 CHIEF COMPLAINT: Colon screen HISTORY OF PRESENT ILLNESS: The patient is a 46-year-old male who presents for colon screen. Lower endoscopy was offered for further evaluation and management. PAST MEDICAL HISTORY: Please see list. PAST SURGICAL HISTORY: Please see list. MEDICATIONS: Please see list. ALLERGIES: Please see list. SOCIAL HISTORY: No illicit drug use FAMILY HISTORY: No reports of Crohn disease or ulcerative colitis. REVIEW OF ORGAN SYSTEMS: CONSTITUTIONAL: No reports of fevers or chills. PHYSICAL EXAM: VITAL SIGNS: Stable GENERAL: Well-developed pleasant in no acute distress. HEENT: No scleral icterus. Extraocular movements grossly intact. Moist buccal mucosa. NECK: Supple without lymphadenopathy. CHEST: Unlabored respirations. Equal bilateral excursions. CARDIOVASCULAR: Regular rate and rhythm. Distal 2+ pulses. ABDOMEN: Soft, nontender, nondistended. MUSCULOSKELETAL: No clubbing, cyanosis, or edema. ASSESSMENT: 1. Colon screen. PLAN: 1. Recommend proceeding with a lower endoscopy Past Medical History Past Medical History: Asthma, GERD/Reflux, Liver Disease, Pulmonary Embolus (PE) Additional Past Medical History / Comment(s): current pancreatitis, taking A/B for UTI History of Any Multi-Drug Resistant Organisms: None Reported Past Surgical History: Orthopedic Surgery Additional Past Surgical History / Comment(s): dental surgery. right clavicle fx. repair, right testicle removed Past Anesthesia/Blood Transfusion Reactions: No Reported Reaction Smoking Status: Current every day smoker Medications and Allergies Home Medications Medication Instructions Recorded Confirmed Type Ondansetron Odt [Zofran Odt] 4 mg PO Q8HR PRN #30 tab 03/19/22 08/13/22 Rx Ciprofloxacin HCl [Cipro] 500 mg PO BID 08/12/22 08/13/22 History Omeprazole [PriLOSEC] 20 mg PO AC-BRKFST #14 cap 08/12/22 08/13/22 Rx Allergies Allergy/AdvReac Type Severity Reaction Status Date / Time Penicillins Allergy Swelling Verified 08/16/22 07:47 Surgical - Exam Vital Signs Temp Pulse Resp BP Pulse Ox 97 F L 68 14 149/78 99 08/16/22 07:53 08/16/22 07:53 08/16/22 07:53 08/16/22 07:53 08/16/22 07:53
[2022-08-16] MEDS ORDERED: LIDOCAINE 2% INJ 20 MG/ML (2 ML VIAL) ONE (08:04)
[2022-08-16] MEDS ORDERED: PROPOFOL 10 MG/ML 20 ML VIAL IV ONE (08:04)
[2022-08-16 08:29] VITALS: RESP 16
[2022-08-16 09:05] VITALS: BP 142/90; PULSE 56
--- NOTE | 2022-08-16 11:36 | P.PN ---
Progress Note - Text Progress Note Date: 08/16/22 Patient reports unintentional weight loss and difficulty tolerating food prior to his colonoscopy. Patient advised to recover at home however and symptoms worsen, return to emergency room
--- NOTE | 2022-08-16 12:19 | P.PCN ---
Date of Procedure: 08/16/22 Description of Procedure: PREOPERATIVE DIAGNOSIS: Colonoscopy screening. POSTOPERATIVE DIAGNOSIS: Colonoscopy screening. Pandiverticulosis Colitis OPERATION: Colonoscopy to the cecum, ileocecal valve and appendiceal orifice. Colonoscopy with cold forceps biopsies SURGEON: Nery Pierre MD. ANESTHESIA: MAC. INDICATIONS: The patient is a 46-year-old male who presents for colonoscopy screening. Benefits and risks were described and informed consent was obtained. DESCRIPTION OF PROCEDURE: The patient had undergone Golytely prep. The patient had been brought into the operating room and laid in the left lateral decubitus position. After adequate intravenous sedation, the rectum was examined with 2% lidocaine jelly. External hemorrhoids were encountered. The rectal tone was within normal limits. No lesions were palpated in the rectal vault. An Olympus colonoscope was advanced until the cecum, ileocecal valve and appendiceal orifice were clearly viewed. The prep was excellent. Pandiverticulosis with scattered diverticulosis was encountered. No colonic polyps were found. Mild focal colitis was found with cold forcep biopsies obtained. Retroflexion of the scope demonstrated grade 2 internal hemorrhoids without active bleeding or inflammation. The colon was desufflated. The patient had tolerated the procedure well. Withdrawal time was over 6 minutes. FINDINGS: Aronchick preparation quality scale 1 (1-5) Internal hemorrhoids, grade 2 External prolapsed hemorrhoids, grade 2 No arteriovenous malformations. No adenomatous polyps. Pandiverticulosis Random biopsies obtained for colitis RECOMMENDATIONS: Lower endoscopy in 5 years, 2027 Plan - Discharge Summary Discharge Rx Participant: No New Discharge Prescriptions: New Omeprazole [PriLOSEC] 40 mg PO DAILY #14 cap Continue Ondansetron Odt [Zofran ODT] 4 mg PO Q8HR PRN #30 tab PRN Reason: Nausea Ciprofloxacin HCl [Cipro] 500 mg PO BID Discontinued Omeprazole [PriLOSEC] 20 mg PO AC-BRKFST #14 cap Discharge Medication List Ondansetron Odt [Zofran ODT] 4 mg PO Q8HR PRN #30 tab 03/19/22 [Rx] Ciprofloxacin HCl [Cipro] 500 mg PO BID 08/12/22 [History] Omeprazole [PriLOSEC] 40 mg PO DAILY #14 cap 08/16/22 [Rx] Follow up Appointment(s)/Referral(s): Nery Pierre MD [STAFF PHYSICIAN] - 08/28/22 1:00 pm Patient Instructions/Handouts: *Surgery [facility] - (Anesthesia) Discharge Instructions Outpatient Surgery, Diverticulosis (DC), Microscopic Colitis (DC), Diverticulosis Diet (GEN), Colonoscopy (DC) Activity/Diet/Wound Care/Special Instructions: Repeat colonoscopy in 5 years, 2027 Discharge Disposition: HOME SELF-CARE
== END 2022-08-16 10:06 | disposition home or self-care (01) ==
LOC: ORWHC2ENDO 07:27
PROVIDERS: ATTEND Surgery Plastic and Reconstructive Surgery
DX: Z12.11 Encounter for screening for malignant neoplasm of colon (principal); K57.30 Diverticulosis of large intestine without perforation or abscess without bleeding; K64.1 Second degree hemorrhoids; K64.4 Residual hemorrhoidal skin tags; J45.909 Unspecified asthma, uncomplicated; K21.9 Gastro-esophageal reflux disease without esophagitis; Z86.711 Personal history of pulmonary embolism; K85.90 Acute pancreatitis without necrosis or infection, unspecified; Z87.440 Personal history of urinary (tract) infections; K75.9 Inflammatory liver disease, unspecified; F17.200 Nicotine dependence, unspecified, uncomplicated; F12.90 Cannabis use, unspecified, uncomplicated; Z88.0 Allergy status to penicillin; Z79.2 Long term (current) use of antibiotics; Z79.899 Other long term (current) drug therapy
CPT/HCPCS: 88305; 45380; J2704; J2001

== ENCOUNTER 2022-11-03 19:28 | Emergency (ER) | payer OTHER ==
[2022-11-03 19:42] VITALS: TEMP 98
[2022-11-03] MEDS ORDERED: SODIUM CHLORIDE 0.9% 1,000 ML IV STA (19:43)
[2022-11-03] MEDS ORDERED: ONDANSETRON 4 MG/2 ML VIAL IVP STA (19:44)
[2022-11-03 20:06] LABS: Basophils % (A) 0 %; Eosinophils # (A) 0.1 k/uL (0-0.7); Eosinophils % (A) 1 %; HCT 50.3 % (39.0-53.0); Lymphocytes # (A) 1.7 k/uL (1.0-4.8); Lymphocytes % (A) 12 %; MCH 30.2 pg (25.0-35.0); MCHC 33.8 g/dL (31.0-37.0); MCV 89.4 fL (80.0-100.0); Mean Platelet Volume 7.6; Monocytes # (A) 0.7 k/uL (0-1.0); Monocytes % (A) 5 %; Neutrophils # (A) 11.5 k/uL (1.3-7.7); Neutrophils % (A) 82 %; Platelet Count 437 k/uL (150-450); RBC 5.63 m/uL (4.30-5.90); RDW 13.1 % (11.5-15.5); WBC 14.1 k/uL (3.8-10.6)
[2022-11-03] MEDS ORDERED: HYDROmorphone 0.5 MG/0.5 ML SYRINGE IVP STA (20:06)
[2022-11-03] MEDS ORDERED: PANTOPRAZOLE 40 MG/10 ML VIAL IVP STA (20:19)
[2022-11-03 20:20] LABS: ALT 19 U/L (4-49); AST 24 U/L (17-59); African American GFR (CKD) >90 (>60 ml/min/1.73 sqM); Albumin 4.9 g/dL (3.5-5.0); Alkaline Phosphatase 51 U/L (38-126); Anion Gap 12 mmol/L; Blood Urea Nitrogen 12 mg/dL (9-20); Calcium 10.5 mg/dL (8.4-10.2); Carbon Dioxide 24 mmol/L (22-30); Chloride 103 mmol/L (98-107); Glucose 115 mg/dL (74-99); Lipase 428 U/L (23-300); Non-African American GFR(CKD) >90 (>60 ml/min/1.73 sqM); Potassium 4.5 mmol/L (3.5-5.1); Sodium 139 mmol/L (137-145); Total Bilirubin 1.4 mg/dL (0.2-1.3); Total Protein 8.5 g/dL (6.3-8.2)
[2022-11-03] MEDS ORDERED: ACET/COD 300 MG/30 MG STARTER PACK 6 TAB BTL PO STA (21:32)
--- NOTE | 2022-11-03 21:39 | ED ---
Abdominal Pain HPI - General Chief Complaint: Abdominal Pain Stated Complaint: N/V Time Seen by Provider: 11/03/22 19:43 Source: patient Mode of arrival: wheelchair Limitations: no limitations - History of Present Illness Initial Comments: Patient is a 46-year-old male who presents the emergency department for abdominal pain. He reports pain in his upper middle abdomen with radiation to the back for the past 2 days. He has history of pancreatitis states this feels similar. He does admit to drinking liquor 2 days ago. He has had nausea with a few episodes of vomiting today, nonbloody. No urinary symptoms. No changes in bowel pattern. No chest pain or shortness of breath. - Related Data Home Medications Medication Instructions Recorded Confirmed Ciprofloxacin HCl [Cipro] 500 mg PO BID 08/12/22 08/13/22 Previous Rx's Medication Instructions Recorded Ondansetron Odt [Zofran ODT] 4 mg PO Q8HR PRN #30 tab 03/19/22 Omeprazole [PriLOSEC] 40 mg PO DAILY #14 cap 08/16/22 Ibuprofen [Motrin] 600 mg PO Q6HR PRN #30 tab 11/03/22 Ondansetron Odt [Zofran Odt] 4 mg PO Q8HR PRN #10 tab 11/03/22 Allergies Allergy/AdvReac Type Severity Reaction Status Date / Time Penicillins Allergy Swelling Verified 11/03/22 19:42 Review of Systems ROS Statement: Those systems with pertinent positive or pertinent negative responses have been documented in the HPI. ROS Other: All systems not noted in ROS Statement are negative. Past Medical History Past Medical History: Asthma, Pulmonary Embolus (PE) Additional Past Medical History / Comment(s): current ETOH (1 pack of beer per day), current smoker, Pancreatitis, colitis History of Any Multi-Drug Resistant Organisms: None Reported Past Surgical History: Orthopedic Surgery Additional Past Surgical History / Comment(s): dental surgery. clavicle Past Anesthesia/Blood Transfusion Reactions: No Reported Reaction Past Psychological History: Anxiety Smoking Status: Current every day smoker Past Alcohol Use History: Occasional Past Drug Use History: None Reported General Exam Limitations: no limitations General appearance: alert Eye exam: Present: normal appearance, PERRL, EOMI. Absent: scleral icterus, conjunctival injection, periorbital swelling Respiratory exam: Present: normal lung sounds bilaterally. Absent: respiratory distress, wheezes, rales, rhonchi, stridor Cardiovascular Exam: Present: regular rate, normal rhythm, normal heart sounds. Absent: systolic murmur, diastolic murmur, rubs, gallop, clicks GI/Abdominal exam: Present: soft, tenderness (Epigastric), normal bowel sounds. Absent: distended, guarding, rebound, rigid Neurological exam: Present: alert Psychiatric exam: Present: normal affect, normal mood Skin exam: Present: warm, dry, intact, normal color. Absent: rash Course Vital Signs 11/03/22 11/03/22 19:39 21:49 Temperature 98.0 F Pulse Rate 81 75 Respiratory 20 16 Rate Blood Pressure 143/96 138/96 O2 Sat by Pulse 99 99 Oximetry Medical Decision Making - Medical Decision Making Was pt. sent in by a medical professional or institution (, PA, CHILDCARE CENTER ADMINISTRATOR, urgent care, hospital, or long-term...) When possible be specific @ -No Did you speak to anyone other than the patient for history (EMS, parent, family, police, friend...)? What history was obtained from this source @ -No Did you review nursing and triage notes (agree or disagree)? Why? @ -I reviewed and agree with nursing and triage notes Were old charts reviewed (outside hosp., previous admission, EMS record, old EKG, old radiological studies, urgent care reports/EKG's, long-term records)? Report findings @ -No old charts were reviewed Differential Diagnosis (chest pain, altered mental status, abdominal pain women, abdominal pain men, vaginal bleeding, weakness, fever, dyspnea, syncope, headache, dizziness, GI bleed, back pain, seizure, CVA, palpatations, mental health)? @ Differential Abdominal Pain Men: Appendicitis, cholecystitis, diverticulosis, ischemic bowel, pancreatitis, hepatitis, UTI, gastroenteritis, AAA, incarcerated hernia, bowel obstruction, constipation, inflammatory bowel, hepatitis, peptic ulcer disease, splenic infarction, perforated viscus, testicular torsion, this is not meant to be an all-inclusive list EKG interpreted by me (3pts min.). @ -As above X-rays interpreted by me (1pt min.). @ -None done CT interpreted by me (1pt min.). @ -None done U/S interpreted by me (1pt. min.). @ -None done What testing was considered but not performed or refused? (CT, X-rays, U/S, labs)? Why? @ -None What meds were considered but not given or refused? Why? @ -None Did you discuss the management of the patient with other professionals (sena fulton i.e. , PA, CHILDCARE CENTER ADMINISTRATOR, lab, RT, psych nurse, social media sr strategy manager, demographer, teacher, catapult and arresting gear officer, case operator)? Give summary @ -No Was smoking cessation discussed for >3mins.? @ -No Was critical care preformed (if so, how long)? @ -No Were there social determinants of health that impacted care today? How? (Homelessness, low income, unemployed, alcoholism, drug addiction, transportati on, low edu. Level, literacy, decrease access to med. care, senior living, rehab)? @ -No Was there de-escalation of care discussed even if they declined (Discuss DNR or withdrawal of care, Hospice)? DNR status @ -No What co-morbidities impacted this encounter? (DM, HTN, Smoking, COPD, CAD, Cancer, CVA, ARF, Chemo, Hep., AIDS, mental health diagnosis, sleep apnea, morbid obesity)? @ -None] Was patient admitted / discharged? Hospital course, mention meds given and route, prescriptions, significant lab abnormalities, going to OR and other pertinent info. @ Patient presents with abdominal pain. Laboratory studies consistent with pancreatitis, lipase of 428. There is leukocytosis of 14.1, likely reactive. Liver enzymes are within normal limits. Patient hydrated, given pain and nausea medication. Pain controlled. No further episodes of vomiting. I discussed disposition options with patient I did offer admission for pain control hydration ultimately patient would like to go home. He will be discharged with Tylenol 3 starter pack. Discussed sedating properties of Tylenol 3. No sustained from alcohol and follow low-fat diet. Patient to follow up with his primary care provider. Return parameters discussed Undiagnosed new problem with uncertain prognosis? @ -[No] Drug Therapy requiring intensive monitoring for toxicity (Heparin, Nitro, Insulin, Cardizem)? @ -[No] Were any procedures done? @ -[No] Diagnosis/symptom? @ -Pancreatitis Acute, or Chronic, or Acute on Chronic? @ -Acute Uncomplicated (without systemic symptoms) or Complicated (systemic symptoms)? @ -Uncomplicated Side effects of treatment? @ -[No] Exacerbation, Progression, or Severe Exacerbation? @ -[No] Poses a threat to life or bodily function? How? (Chest pain, [place], [place], pneumonia, PE, COPD, DKA, ARF, appy, cholecystitis, CVA, Diverticulitis, Homicidal, Suici qian, threat to staff... and all critical care pts) @ -No Dr. Olivia is my attending - Lab Data Result diagrams: 11/03/22 19:55 11/03/22 19:55 Lab Results 11/03/22 11/03/22 11/03/22 Range/Units 19:55 19:55 19:55 WBC 14.1 H (3.8-10.6) k/uL RBC 5.63 (4.30-5.90) m/uL Hgb 17.0 (13.0-17.5) gm/dL Hct 50.3 (39.0-53.0) % MCV 89.4 (80.0-100.0) fL MCH 30.2 (25.0-35.0) pg MCHC 33.8 (31.0-37.0) g/dL RDW 13.1 (11.5-15.5) % Plt Count 437 (150-450) k/uL MPV 7.6 Neutrophils % 82 % Lymphocytes % 12 % Monocytes % 5 % Eosinophils % 1 % Basophils % 0 % Neutrophils # 11.5 H (1.3-7.7) k/uL Lymphocytes # 1.7 (1.0-4.8) k/uL Monocytes # 0.7 (0-1.0) k/uL Eosinophils # 0.1 (0-0.7) k/uL Basophils # 0.0 (0-0.2) k/uL Sodium 139 (137-145) mmol/L Potassium 4.5 (3.5-5.1) mmol/L Chloride 103 (98-107) mmol/L Carbon Dioxide 24 (22-30) mmol/L Anion Gap 12 mmol/L BUN 12 (9-20) mg/dL Creatinine 0.86 (0.66-1.25) mg/dL Est GFR (CKD-EPI)AfAm >90 (>60 ml/min/1.73 sqM) Est GFR (CKD-EPI)NonAf >90 (>60 ml/min/1.73 sqM) Glucose 115 H (74-99) mg/dL Plasma Lactic Acid Masood 1.2 (0.7-2.0) mmol/L Calcium 10.5 H (8.4-10.2) mg/dL Total Bilirubin 1.4 H (0.2-1.3) mg/dL AST 24 (17-59) U/L ALT 19 (4-49) U/L Alkaline Phosphatase 51 (38-126) U/L Total Protein 8.5 H (6.3-8.2) g/dL Albumin 4.9 (3.5-5.0) g/dL Lipase 428 H (23-300) U/L Disposition Clinical Impression: Acute pancreatitis Disposition: HOME SELF-CARE Condition: Good Instructions (If sedation given, give patient instructions): Pancreatitis (ED) Additional Instructions: Alternate Tylenol and Motrin every 3-4 hours for pain. Safe Tylenol 3 for fela re pain. Do not take Tylenol and Tylenol together. Continue clear liquid diet until significant improvement of symptoms. Then you may transition to low fat diet, gradually advance over 3-6 days as tolerated. Avoid drinking alcohol. Take medication as directed. Follow-up with primary care provider. Return to the emergency department if you experience new, concerning, or worsening symptoms. Prescriptions: Ibuprofen [Motrin] 600 mg PO Q6HR PRN #30 tab PRN Reason: Pain Ondansetron Odt [Zofran Odt] 4 mg PO Q8HR PRN #10 tab PRN Reason: Nausea Is patient prescribed a controlled substance at d/c from ED?: No Referrals: Avi Malhotra MD [Primary Care Provider] - 1-2 days
[2022-11-03 21:57] VITALS: BP 138/96; PULSE 75; RESP 16
== END 2022-11-03 21:56 | disposition home or self-care (01) ==
LOC: EC 19:28
DX: K85.90 Acute pancreatitis without necrosis or infection, unspecified (principal); J45.909 Unspecified asthma, uncomplicated; F17.200 Nicotine dependence, unspecified, uncomplicated; Z88.0 Allergy status to penicillin
CPT/HCPCS: 36415; 80053; 83605; 83690; 85025; 99284; 96374; 96375 ×2; 96361; J2405; C9113; J1170

== ENCOUNTER 2023-01-31 04:05 | Emergency (ER) | payer OTHER ==
[2023-01-31] MEDS ORDERED: SODIUM CHLORIDE 0.9% 2,000 ML IV STA (04:14)
[2023-01-31] MEDS ORDERED: MORPHINE SULFATE 4 MG/ML SYRINGE IVP STA ×2 (04:14→05:33)
[2023-01-31] MEDS ORDERED: PANTOPRAZOLE 40 MG/10 ML VIAL IVP STA (04:14)
[2023-01-31] MEDS ORDERED: ONDANSETRON 4 MG/2 ML VIAL IVP STA (04:15)
[2023-01-31 04:18] VITALS: RESP 18; TEMP 98.2
--- NOTE | 2023-01-31 04:19 | ED ---
General Adult HPI - General Chief complaint: Nausea/Vomiting/Diarrhea Stated complaint: vomiting Time Seen by Provider: 01/31/23 04:11 Source: patient, RN notes reviewed, old records reviewed Mode of arrival: ambulatory Limitations: no limitations - History of Present Illness Initial comments: Patient is a 47-year-old male with past medical history remarkable for pancreatitis, prior alcohol abuse who presents emergency Department complaining of epigastric abdominal pain, nausea, vomiting. No history of abdominal surgeries. States feels like his pancreatitis. Sharp pain in his epigastric region. States that he has been drinking somewhat heavily over the last 2 days because his uncle . States last alcoholic beverages a day and a half ago. Abdominal pain so he started and got worse over the last day with nausea and multiple episodes of nonbilious, bloody emesis. No chest pain or shortness of breath. No urinary complaints. No other acute complaints at this time. No fevers or chills. No diarrhea. No constipation. Presents for further evaluation. Denies any cardiac history. - Related Data Home Medications Medication Instructions Recorded Confirmed Ciprofloxacin HCl [Cipro] 500 mg PO BID 08/12/22 08/13/22 Previous Rx's Medication Instructions Recorded Ondansetron Odt [Zofran ODT] 4 mg PO Q8HR PRN #30 tab 03/19/22 Omeprazole [PriLOSEC] 40 mg PO DAILY #14 cap 08/16/22 Ibuprofen [Motrin] 600 mg PO Q6HR PRN #30 tab 11/03/22 Ondansetron Odt [Zofran Odt] 4 mg PO Q8HR PRN #10 tab 11/03/22 Pantoprazole Sodium [Protonix] 20 mg PO DAILY 14 Days #14 tab 01/31/23 Allergies Allergy/AdvReac Type Severity Reaction Status Date / Time Penicillins Allergy Swelling Verified 01/31/23 04:09 Review of Systems ROS Statement: Those systems with pertinent positive or pertinent negative responses have been documented in the HPI. Review of Systems: CONST: Denies fever EYES: Denies blurry vision ENT: Denies nasal congestion C/V: Denies Chest pain RESP: Denies shortness of breath GI: Endorses abdominal pain : Denies dysuria SKIN: Denies rash. MSK: Denies joint pain. NEURO: Denies headache ROS Other: All systems not noted in ROS Statement are negative. Past Medical History Past Medical History: Asthma, Pulmonary Embolus (PE) Additional Past Medical History / Comment(s): current ETOH (1 pack of beer per day), current smoker, Pancreatitis, colitis History of Any Multi-Drug Resistant Organisms: None Reported Past Surgical History: Orthopedic Surgery Additional Past Surgical History / Comment(s): dental surgery. clavicle Past Anesthesia/Blood Transfusion Reactions: No Reported Reaction Past Psychological History: Anxiety Smoking Status: Current every day smoker Past Alcohol Use History: Occasional Past Drug Use History: None Reported General Exam - General Exam Comments Initial Comments: General: Appears in mild to moderate distress secondary to abdominal pain. HEAD: Normal with no signs of head trauma. EYES: PERRLA, EOMI, conjunctiva normal, no discharge. ENT: Hearing grossly intact, normal oropharynx. Laboratory mucous membranes. RESPIRATORY: Clear breath sounds bilaterally. No wheezes, rales, or rhonchi. C/V: Regular rate and rhythm. S1 and S2 auscultated, no edema, peripheral pulses 2+ and intact throughout ABD: Abdomen soft, nondistended. Mild tenderness palpation epigastric region. No guarding. No peritoneal signs. No rebound tenderness. EXT: Normal range of motion, no obvious deformity SKIN: No rashes or lesions observed on exposed skin. NEURO: Alert and oriented 4. Limitations: no limitations Course Vital Signs 01/31/23 04:06 Temperature 98.2 F Pulse Rate 84 Respiratory 18 Rate Blood Pressure 147/104 O2 Sat by Pulse 97 Oximetry Medical Decision Making - Medical Decision Making Was pt. sent in by a medical professional or institution (, PA, RESIDENTIAL NURSE, urgent care, hospital, or fci...) When possible be specific @ -No Did you speak to anyone other than the patient for history (EMS, parent, family, police, friend...)? What history was obtained from this source @ -No Did you review nursing and triage notes (agree or disagree)? Why? @ -I reviewed and agree with nursing and triage notes Were old charts reviewed (outside hosp., previous admission, EMS record, old EKG, old radiological studies, urgent care reports/EKG's, fci records)? Report findings @ -Old charts reviewed Differential Diagnosis (chest pain, altered mental status, abdominal pain women, abdominal pain men, vaginal bleeding, weakness, fever, dyspnea, syncope, headache, dizziness, GI bleed, back pain, seizure, CVA, palpatations, mental health, musculoskeletal)? @ -Differential Abdominal Pain Men: Appendicitis, cholecystitis, diverticulosis, ischemic bowel, pancreatitis, hepatitis, UTI, gastroenteritis, AAA, incarcerated hernia, bowel obstruction, constipation, inflammatory bowel, hepatitis, peptic ulcer disease, splenic infarction, perforated viscus, testicular torsion, this is not meant to be an all-inclusive list EKG interpreted by me (3pts min.). @ -As above X-rays interpreted by me (1pt min.). @ -Chest x-ray reveals no obvious acute cardio pulmonary process. CT interpreted by me (1pt min.). @ -None done U/S interpreted by me (1pt. min.). @ -None done What testing was considered but not performed or refused? (CT, X-rays, U/S, labs)? Why? @ -None What meds were considered but not given or refused? Why? @ -None Did you discuss the management of the patient with other professionals (professionals i.e. , PA, RESIDENTIAL NURSE, lab, RT, psych nurse, elementary school social worker, cone trucker, teacher, investment officer, case operator)? Give summary @ -No Was smoking cessation discussed for >3mins.? @ -No Was critical care preformed (if so, how long)? @ -No Were there social determinants of health that impacted care today? How? (Homelessness, low income, unemployed, alcoholism, drug addiction, transportation, low edu. Level, literacy, decrease access to med. care, retirement, rehab)? @ -No Was there de-escalation of care discussed even if they declined (Discuss DNR or withdrawal of care, Hospice)? DNR status @ -No What co-morbidities impacted this encounter? (DM, HTN, Smoking, COPD, CAD, Cancer, CVA, ARF, Chemo, Hep., AIDS, mental health diagnosis, sleep apnea, morbid obesity)? @ -None Was patient admitted / discharged? Hospital course, mention meds given and route, prescriptions, significant lab abnormalities, going to OR and other pert inent info. @ -Based on the patient's presentation and physical exam, I'm concerned for acute abdominal pathology for his current symptoms. We will obtain abdominal laboratory studies, screening EKG, chest x-ray. Patient agreement this plan. Vital signs within acceptable limits. He'll be symptomatically treated with IV fluids, Zofran, Protonix, morphine. EKG unremarkable. Chest x-ray within acceptable limits and no acute cardio pulmonary process. Laboratory studies remarkable for mild leukocytosis of 13 which is likely reactive. Remainder the labs within normal limits. No evidence of elevated lipase or amylase. On reevaluation, patient is feeling improved. He is tolerating oral intake. We discussed his workup. He will be discharged home at this time. Strict return precautions discussed. Recommended a bland diet. Patient was in agreement with this plan. I will provide the patient with a prescription for ODT Zofran, Protonix. I instructed the patient to follow up with their PCP in the next 1-3 days. I explained that the patient should return to the emergency department if they experience any worsening symptoms. Strict return precautions were discussed with the patient. The patient expressed understanding of these instructions. I answered all questions that the patient had. The patient was discharged home in good condition with their prescriptions and follow up information. Undiagnosed new problem with uncertain prognosis? @ -No Drug Therapy requiring intensive monitoring for toxicity (Heparin, Nitro, Insulin, Cardizem)? @ -No Were any procedures done? @ -No Diagnosis/symptom? @ -Abdominal pain of unknown etiology, nausea and vomiting Acute, or Chronic, or Acute on Chronic? @ -Acute Uncomplicated (without systemic symptoms) or Complicated (systemic symptoms)? @ -Complicated Side effects of treatment? @ -none Exacerbation, Progression, or Severe Exacerbation] @ -no Poses a threat to life or bodily function? @ -no - Lab Data Result diagrams: 01/31/23 04:34 01/31/23 04:34 Lab Results 01/31/23 01/31/23 01/31/23 Range/Units 04:34 04:34 04:34 WBC 13.8 H (3.8-10.6) k/uL RBC 5.47 (4.30-5.90) m/uL Hgb 17.0 (13.0-17.5) gm/dL Hct 48.9 (39.0-53.0) % MCV 89.5 (80.0-100.0) fL MCH 31.0 (25.0-35.0) pg MCHC 34.7 (31.0-37.0) g/dL RDW 13.3 (11.5-15.5) % Plt Count 399 (150-450) k/uL MPV 7.7 Neutrophils % 80 % Lymphocytes % 15 % Monocytes % 3 % Eosinophils % 1 % Basophils % 0 % Neutrophils # 11.0 H (1.3-7.7) k/uL Lymphocytes # 2.0 (1.0-4.8) k/uL Monocytes # 0.4 (0-1.0) k/uL Eosinophils # 0.2 (0-0.7) k/uL Basophils # 0.0 (0-0.2) k/uL PT 11.2 (10.0-12.5) sec INR 1.0 (<1.2) APTT 23.8 (22.0-30.0) sec Sodium 142 (137-145) mmol/L Potassium 3.9 (3.5-5.1) mmol/L Chloride 106 (98-107) mmol/L Carbon Dioxide 21 L (22-30) mmol/L Anion Gap 15 mmol/L BUN 12 (9-20) mg/dL Creatinine 0.80 (0.66-1.25) mg/dL Est GFR (CKD-EPI)AfAm >90 (>60 ml/min/1.73 sqM) Est GFR (CKD-EPI)NonAf >90 (>60 ml/min/1.73 sqM) Glucose 143 H (74-99) mg/dL Plasma Lactic Acid Masood (0.7-2.0) mmol/L Calcium 9.9 (8.4-10.2) mg/dL Total Bilirubin 1.3 (0.2-1.3) mg/dL AST 35 (17-59) U/L ALT 36 (4-49) U/L Alkaline Phosphatase 69 (38-126) U/L Total Protein 8.0 (6.3-8.2) g/dL Albumin 4.7 (3.5-5.0) g/dL Amylase 69 (30-110) U/L Lipase 172 (23-300) U/L Serum Alcohol <10 mg/dL 01/31/23 Range/Units 04:34 WBC (3.8-10.6) k/uL RBC (4.30-5.90) m/uL Hgb (13.0-17.5) gm/dL Hct (39.0-53.0) % MCV (80.0-100.0) fL MCH (25.0-35.0) pg MCHC (31.0-37.0) g/dL RDW (11.5-15.5) % Plt Count (150-450) k/uL MPV Neutrophils % % Lymphocytes % % Monocytes % % Eosinophils % % Basophils % % Neutrophils # (1.3-7.7) k/uL Lymphocytes # (1.0-4.8) k/uL Monocytes # (0-1.0) k/uL Eosinophils # (0-0.7) k/uL Basophils # (0-0.2) k/uL PT (10.0-12.5) sec INR (<1.2) APTT (22.0-30.0) sec Sodium (137-145) mmol/L Potassium (3.5-5.1) mmol/L Chloride (98-107) mmol/L Carbon Dioxide (22-30) mmol/L Anion Gap mmol/L BUN (9-20) mg/dL Creatinine (0.66-1.25) mg/dL Est GFR (CKD-EPI)AfAm (>60 ml/min/1.73 sqM) Est GFR (CKD-EPI)NonAf (>60 ml/min/1.73 sqM) Glucose (74-99) mg/dL Plasma Lactic Acid Masood 1.5 (0.7-2.0) mmol/L Calcium (8.4-10.2) mg/dL Total Bilirubin (0.2-1.3) mg/dL AST (17-59) U/L ALT (4-49) U/L Alkaline Phosphatase (38-126) U/L Total Protein (6.3-8.2) g/dL Albumin (3.5-5.0) g/dL Amylase (30-110) U/L Lipase (23-300) U/L Serum Alcohol mg/dL - EKG Data -: EKG Interpreted by Me EKG Comments: 12-lead Electrocardiogram Interpretation Note EKG was reviewed and interpreted by myself. 12-lead ECG performed at 0439 is interpreted by me as revealing normal sinus rhythm at a rate of 63 beats per minute. [place] is normal. RI interval is 166 ms, QRS duration is 87 ms, QTc is 424 ms.. There were no ST or T wave abnormalities to suggest myocardial ischemia or injury. R wave progression across the precordium was satisfactory. By my interpretation this EKG is non-diagnostic for acute ischemia. Disposition Clinical Impression: Abdominal pain of unknown cause, Nausea and vomiting Disposition: HOME SELF-CARE Condition: Good Instructions (If sedation given, give patient instructions): Acute Nausea and Vomiting (ED), Abdominal Pain (ED) Prescriptions: Pantoprazole Sodium [Protonix] 20 mg PO DAILY 14 Days #14 tab Is patient prescribed a controlled substance at d/c from ED?: No Referrals: None,Stated [Primary Care Provider] - 1-2 days Kiya Johnson MD [STAFF PHYSICIAN] - 1-2 days Forms: Area PCPs Time of Disposition: 06:28
[2023-01-31 05:08] LABS: Basophils % (A) 0 %; Eosinophils # (A) 0.2 k/uL (0-0.7); Eosinophils % (A) 1 %; HCT 48.9 % (39.0-53.0); Lymphocytes % (A) 15 %; MCHC 34.7 g/dL (31.0-37.0); MCV 89.5 fL (80.0-100.0); Mean Platelet Volume 7.7; Monocytes # (A) 0.4 k/uL (0-1.0); Monocytes % (A) 3 %; Neutrophils % (A) 80 %; Platelet Count 399 k/uL (150-450); RBC 5.47 m/uL (4.30-5.90); RDW 13.3 % (11.5-15.5); WBC 13.8 k/uL (3.8-10.6)
[2023-01-31 05:22] LABS: Partial Thromboplastin Time 23.8 sec (22.0-30.0); Prothrombin Time 11.2 sec (10.0-12.5)
[2023-01-31 05:25] LABS: ALT 36 U/L (4-49); AST 35 U/L (17-59); African American GFR (CKD) >90 (>60 ml/min/1.73 sqM); Albumin 4.7 g/dL (3.5-5.0); Alcohol <10 mg/dL; Alkaline Phosphatase 69 U/L (38-126); Amylase 69 U/L (30-110); Anion Gap 15 mmol/L; Blood Urea Nitrogen 12 mg/dL (9-20); Calcium 9.9 mg/dL (8.4-10.2); Carbon Dioxide 21 mmol/L (22-30); Chloride 106 mmol/L (98-107); Glucose 143 mg/dL (74-99); Lipase 172 U/L (23-300); Non-African American GFR(CKD) >90 (>60 ml/min/1.73 sqM); Potassium 3.9 mmol/L (3.5-5.1); Sodium 142 mmol/L (137-145); Total Bilirubin 1.3 mg/dL (0.2-1.3)
--- NOTE | 2023-01-31 06:02 | XR ---
EXAM: XR Chest, 1 View CLINICAL HISTORY: ITS.REASON XR Reason: abdominal pain TECHNIQUE: Frontal view of the chest. COMPARISON: 10/06/2020 FINDINGS: Lungs: Unremarkable. No consolidation. Pleural space: Unremarkable. No pneumothorax. Heart: Unremarkable. No cardiomegaly. Mediastinum: Unremarkable. Normal mediastinal contour. Bones/joints: Unremarkable. No acute fracture. IMPRESSION: Normal chest x-ray.
[2023-01-31] MEDS ORDERED: ONDANSETRON 4 MG ODT STARTER PACK 2 TAB BTL PO STA (06:32)
[2023-01-31] MEDS ORDERED: MAG HYDROX/AL HYDROX/SIMETH 30 ML, HYOSCYAMINE ELIXIR 10 ML, LIDOCAINE VISCOUS 2% 10 ML PO STA ×3 (06:32)
[2023-01-31 07:17] VITALS: BP 140/86; PULSE 77
== END 2023-01-31 06:57 | disposition home or self-care (01) ==
LOC: EC 04:05
DX: R10.9 Unspecified abdominal pain (principal); R11.2 Nausea with vomiting, unspecified; J45.909 Unspecified asthma, uncomplicated; F17.200 Nicotine dependence, unspecified, uncomplicated; Z86.59 Personal history of other mental and behavioral disorders; Z88.0 Allergy status to penicillin
CPT/HCPCS: 36415; 80053; 82150; 83605; 83690; 85025; 85610; 85730; 71045; 99285; 96374; 96375 ×2; 96376; 96361 ×2; G0480; J2270; J2405; C9113; 80320

== ENCOUNTER 2024-07-22 08:46 | Inpatient (IN) | payer OTHER ==
--- NOTE | 2024-07-22 08:51 | ED ---
Abdominal Pain HPI - General Chief Complaint: Abdominal Pain Stated Complaint: Abd Pain/Vomiting Time Seen by Provider: 07/22/24 08:51 Source: patient, RN notes reviewed, old records reviewed Mode of arrival: ambulatory Limitations: no limitations - History of Present Illness Initial Comments: This is a 48-year-old male to the ER for evaluation [place] abdominal pain severe abdominal pain with nausea vomiting pain is significantly worse today than yesterday but is been going on for about 2 days after drinking over the weekend. Severe nausea vomiting here in the ER without fever or diarrhea MD Complaint: abdominal pain -: days(s) Location: epigastric Radiation: epigastric Migration to: epigastric Severity: moderate Severity scale (1-10): 7 Quality: sharp Improves With: nothing Worsens With: nothing Associated Symptoms: nausea, vomiting Treatments Prior to Arrival: other (0) - Related Data Previous Rx's Medication Instructions Recorded Folic Acid 1 mg PO DAILY 30 Days #30 tab 07/25/24 Multivitamins, Thera [Multivitamin 1 each PO DAILY 30 Days #30 tab 07/25/24 (formulary)] Pantoprazole [Protonix] 40 mg PO DAILY 30 Days #30 tab 07/25/24 Thiamine [Vitamin B-1] 100 mg PO DAILY 30 Days #30 tab 07/25/24 Allergies Allergy/AdvReac Type Severity Reaction Status Date / Time Penicillins Allergy Swelling Verified 07/22/24 10:21 Review of Systems ROS Statement: Those systems with pertinent positive or pertinent negative responses have been documented in the HPI. ROS Other: All systems not noted in ROS Statement are negative. Past Medical History Past Medical History: Asthma, Pulmonary Embolus (PE) Additional Past Medical History / Comment(s): current ETOH (1 pack of beer per day), current smoker, Pancreatitis, colitis History of Any Multi-Drug Resistant Organisms: None Reported Past Surgical History: Orthopedic Surgery Additional Past Surgical History / Comment(s): dental surgery. clavicle Past Anesthesia/Blood Transfusion Reactions: No Reported Reaction Past Psychological History: Anxiety Smoking Status: Current every day smoker Past Alcohol Use History: Occasional Past Drug Use History: None Reported General Exam Limitations: no limitations General appearance: alert, in no apparent distress Head exam: Present: atraumatic, normocephalic, normal inspection Eye exam: Present: normal appearance, PERRL, EOMI. Absent: scleral icterus, conjunctival injection, periorbital swelling ENT exam: Present: normal exam, mucous membranes moist Neck exam: Present: normal inspection. Absent: tenderness, meningismus, l ymphadenopathy Respiratory exam: Present: normal lung sounds bilaterally. Absent: respiratory distress, wheezes, rales, rhonchi, stridor Cardiovascular Exam: Present: regular rate, normal rhythm, normal heart sounds. Absent: systolic murmur, diastolic murmur, rubs, gallop, clicks GI/Abdominal exam: Present: soft, normal bowel sounds. Absent: distended, tenderness, guarding, rebound, rigid Extremities exam: Present: normal inspection, full ROM, normal capillary refill. Absent: tenderness, pedal edema, joint swelling, calf tenderness Back exam: Present: normal inspection Neurological exam: Present: alert, oriented X3, CN II-XII intact Psychiatric exam: Present: normal affect, normal mood Skin exam: Present: warm, dry, intact, normal color. Absent: rash Course Vital Signs 07/22/24 07/22/24 07/22/24 08:48 09:17 10:45 Temperature 98.0 F Pulse Rate 66 60 81 Respiratory 16 18 16 Rate Blood Pressure 151/95 135/82 149/101 O2 Sat by Pulse 100 95 97 Oximetry 07/22/24 07/22/24 12:49 14:30 Temperature Pulse Rate 81 64 Respiratory 18 16 Rate Blood Pressure 147/102 119/73 O2 Sat by Pulse 95 96 Oximetry - Reevaluation(s) Reevaluation #1: 07/22/24 10:27 Medical records reviewed Reevaluation #2: 07/22/24 10:27 Patient is still in pain with nausea vomiting symptoms difficult to control Reevaluation #3: 07/22/24 10:27 Patient informed of results questions answered Reevaluation #4: Was pt. sent in by a medical professional or institution (, PA, [employer]SEMBLER, urgent care, hospital, or assisted...) When possible be specific @ -no Did you speak to anyone other than the patient for history (EMS, parent, family, police, friend...)? What history was obtained from this source @ -no Did you review nursing and triage notes (agree or disagree)? Why? @ -agree Are old charts reviewed (outside hosp., previous admission, EMS record, old EKG, old radiological studies, urgent care reports/EKG's, assisted records)? Report findings @ -yes Differential Diagnosis (chest pain, altered mental status, abdominal pain women, abdominal pain men, vaginal bleeding, weakness, fever, dyspnea, syncope, headache, dizziness, GI bleed, back pain, seizure, CVA, palpatations, mental health, musculoskeletal)? @ -prior EKG interpreted by me (3pts min.). @ -yes X-rays interpreted by me (1pt min.). @ -no CT interpreted by me (1pt min.). @ -no U/S interpreted by me (1pt. min.). @ -no What testing was considered but not performed or refused? (CT, X-rays, U/S, labs)? Why? @ -none What meds were considered but not given or refused? Why? @ -none Did you discuss the management of the patient with other professionals (professionals i.e. , PA, [employer] F[employer]ER ASSEMBLER, lab, RT, psych nurse, social services designee, packing floor worker, teacher, custody officer, bottle caser)? Give summary @ -no Was smoking cessation discussed for >3mins.? @ -no Was critical care preformed (if so, how long)? @ -no Were there social determinants of health that impacted care today? How? (Homelessness, low income, unemployed, alcoholism, drug addiction, transportation, low edu. Level, literacy, decrease access to med. care, correction, rehab)? @ -none Was there de-escalation of care discussed even if they declined (Discuss DNR or withdrawal of care, Hospice)? DNR status @ -no What co-morbidities impacted this encounter? (DM, HTN, Smoking, COPD, CAD, Cancer, CVA, ARF, Chemo, Hep., AIDS, mental health diagnosis, sleep apnea, morb id obesity)? @ -none Was patient admitted / discharged? Hospital course, mention meds given and rou te, prescriptions, significant lab abnormalities, going to OR and other pertinent info. @ - 48 male to the ER for evaluation today for evaluation of severe abdominal pain history of alcoholic related pancreatitis alcohol induced pancreatitis with elevated lipase here in the ER patient is still unable to keep down liquids and will be admitted for symptomatic therapy Admitted Undiagnosed new problem with uncertain prognosis? @ -no Drug Therapy requiring intensive monitoring for toxicity (Heparin, Nitro, Insulin, Cardizem)? @ -no Were any procedures done? @ -no Diagnosis/symptom? @ -Acute pancreatitis Acute, or Chronic, or Acute on Chronic? @ -Acute Uncomplicated (without systemic symptoms) or Complicated (systemic symptoms)? @ -Complicated Side effects of treatment? @ -no Exacerbation, Progression, or Severe Exacerbation? @ -exacerbation Poses a threat to life or bodily function? How? (Chest pain, [place], [place], pneumonia, PE, COPD, DKA, ARF, appy, cholecystitis, CVA, Diverticulitis, Homicidal, Suicidal, threat to staff... and all critical care pts) @ -no Reevaluation #5: Differential Abdominal Pain Men: Appendicitis, cholecystitis, diverticulosis, ischemic bowel, pancreatitis, hepatitis, UTI, gastroenteritis, AAA, incarcerated hernia, bowel obstruction, constipation, inflammatory bowel, hepatitis, peptic ulcer disease, splenic infarction, perforated viscus, testicular torsion, this is not meant to be an all-inclusive list - Consultations Consultation #1: Spoke with sound who agrees to admit this patient Medical Decision Making - Medical Decision Making 48 male to the ER for evaluation today for evaluation of severe abdominal pain history of alcoholic related pancreatitis alcohol induced pancreatitis with elevated lipase here in the ER patient is still unable to keep down liquids and will be admitted for symptomatic therapy - Lab Data Result diagrams: 07/25/24 06:30 07/25/24 06:30 Lab Results 07/22/24 07/22/24 07/22/24 Range/Units 09:17 09:17 09:17 WBC 14.19 H (4.50-10.00) 10*3/uL RBC 4.80 (4.40-5.60) 10*6/uL Hgb 15.1 (13.0-17.0) g/dL Hct 43.0 (39.6-50.0) % MCV 89.6 (80.0-97.0) fL MCH 31.5 (27.0-32.0) pg MCHC 35.1 (32.0-37.0) g/dL Plt Count 336 (140-440) 10*3/uL MPV 9.4 L (9.5-12.2) fL Immature Gran % (Auto) 0.2 % Neutrophils % 79.3 % Lymphocytes % 12.5 % Monocytes % 6.7 % Eosinophils % 0.7 % Basophils % 0.6 % Immature Gran # 0.03 (0.00-0.04) 10*3/uL Neutrophils # 11.25 H (1.80-7.70) 10*3/uL Lymphocytes # 1.78 (0.90-5.00) 10*3/uL Monocytes # 0.95 (0.20-1.00) 10*3/uL Eosinophils # 0.10 (0.04-0.35) 10*3/uL Basophils # 0.08 (0.00-0.10) 10*3/uL Sodium 141 (137-145) mmol/L Potassium 4.1 (3.5-5.1) mmol/L Chloride 105 (98-107) mmol/L Carbon Dioxide 25 (22-30) mmol/L Anion Gap 11 mmol/L BUN 11 (9-20) mg/dL Creatinine 0.86 (0.66-1.25) mg/dL Est GFR (CKD-EPI)AfAm >90 (>60 ml/min/1.73 sqM) Est GFR (CKD-EPI)NonAf >90 (>60 ml/min/1.73 sqM) Glucose 121 H (74-99) mg/dL Plasma Lactic Acid Masood 1.7 (0.7-2.0) mmol/L Calcium 10.2 (8.4-10.2) mg/dL Phosphorus 3.9 (2.5-4.5) mg/dL Magnesium 1.9 (1.6-2.3) mg/dL Total Bilirubin 1.3 (0.2-1.3) mg/dL AST 44 (17-59) U/L ALT 54 H (4-49) U/L Alkaline Phosphatase 60 (38-126) U/L Troponin I (0.000-0.034) ng/mL Total Protein 7.4 (6.3-8.2) g/dL Albumin 4.5 (3.5-5.0) g/dL Amylase 89 (30-110) U/L Lipase 510 H (23-300) U/L 07/22/24 Range/Units 09:17 WBC (4.50-10.00) 10*3/uL RBC (4.40-5.60) 10*6/uL Hgb (13.0-17.0) g/dL Hct (39.6-50.0) % MCV (80.0-97.0) fL MCH (27.0-32.0) pg MCHC (32.0-37.0) g/dL Plt Count (140-440) 10*3/uL MPV (9.5-12.2) fL Immature Gran % (Auto) % Neutrophils % % Lymphocytes % % Monocytes % % Eosinophils % % Basophils % % Immature Gran # (0.00-0.04) 10*3/uL Neutrophils # (1.80-7.70) 10*3/uL Lymphocytes # (0.90-5.00) 10*3/uL Monocytes # (0.20-1.00) 10*3/uL Eosinophils # (0.04-0.35) 10*3/uL Basophils # (0.00-0.10) 10*3/uL Sodium (137-145) mmol/L Potassium (3.5-5.1) mmol/L Chloride (98-107) mmol/L Carbon Dioxide (22-30) mmol/L Anion Gap mmol/L BUN (9-20) mg/dL Creatinine (0.66-1.25) mg/dL Est GFR (CKD-EPI)AfAm (>60 ml/min/1.73 sqM) Est GFR (CKD-EPI)NonAf (>60 ml/min/1.73 sqM) Glucose (74-99) mg/dL Plasma Lactic Acid Masood (0.7-2.0) mmol/L Calcium (8.4-10.2) mg/dL Phosphorus (2.5-4.5) mg/dL Magnesium (1.6-2.3) mg/dL Total Bilirubin (0.2-1.3) mg/dL AST (17-59) U/L ALT (4-49) U/L Alkaline Phosphatase (38-126) U/L Troponin I <0.012 (0.000-0.034) ng/mL Total Protein (6.3-8.2) g/dL Albumin (3.5-5.0) g/dL Amylase (30-110) U/L Lipase (23-300) U/L - EKG Data -: EKG Interpreted by Me (EKG sinus 73 GA 164 QRS 86 QTc 441) - Radiology Data Radiology results: report reviewed, image reviewed Disposition Clinical Impression: Abdominal pain, Acute pancreatitis, Intractable nausea and vomiting Disposition: ADMITTED IP TO THIS [facility] Condition: Stable Is patient prescribed a controlled substance at d/c from ED?: No Time of Disposition: 10:20
[2024-07-22 09:29] LABS: Basophils # (A) 0.08 10*3/uL (0.00-0.10); Basophils % (A) 0.6 %; Eosinophils % (A) 0.7 %; HGB 15.1 g/dL (13.0-17.0); Lymphocytes # (A) 1.78 10*3/uL (0.90-5.00); Lymphocytes % (A) 12.5 %; MCH 31.5 pg (27.0-32.0); MCHC 35.1 g/dL (32.0-37.0); MCV 89.6 fL (80.0-97.0); Mean Platelet Volume 9.4 fL (9.5-12.2); Monocytes # (A) 0.95 10*3/uL (0.20-1.00); Monocytes % (A) 6.7 %; Neutrophils # (A) 11.25 10*3/uL (1.80-7.70); Neutrophils % (A) 79.3 %; Platelet Count 336 10*3/uL (140-440); RDW 13.2 % (11.5-14.5); WBC 14.19 10*3/uL (4.50-10.00)
[2024-07-22] MEDS: ONDANSETRON 4 MG/2 ML VIAL IVP STA (09:43)
[2024-07-22] MEDS: MORPHINE SULFATE 4 MG/ML SYRINGE IV STA (09:44)
[2024-07-22] MEDS: LORazepam 1 MG/0.5 ML VIAL IV STA (09:44)
[2024-07-22] MEDS: SODIUM CHLORIDE 0.9% 1,000 ML IV SCH (09:44)
[2024-07-22] MEDS: PANTOPRAZOLE 40 MG/10 ML VIAL IVP STA (09:44)
[2024-07-22 09:45] LABS: ALT 54 U/L (4-49); AST 44 U/L (17-59); African American GFR (CKD) >90 (>60 ml/min/1.73 sqM); Albumin 4.5 g/dL (3.5-5.0); Alkaline Phosphatase 60 U/L (38-126); Amylase 89 U/L (30-110); Anion Gap 11 mmol/L; Blood Urea Nitrogen 11 mg/dL (9-20); Calcium 10.2 mg/dL (8.4-10.2); Carbon Dioxide 25 mmol/L (22-30); Chloride 105 mmol/L (98-107); Glucose 121 mg/dL (74-99); Lipase 510 U/L (23-300); Magnesium 1.9 mg/dL (1.6-2.3); Non-African American GFR(CKD) >90 (>60 ml/min/1.73 sqM); Phosphorus 3.9 mg/dL (2.5-4.5); Potassium 4.1 mmol/L (3.5-5.1); Sodium 141 mmol/L (137-145); Total Bilirubin 1.3 mg/dL (0.2-1.3); Total Protein 7.4 g/dL (6.3-8.2)
[2024-07-22] MEDS ORDERED: HYDROmorphone 1 MG/ML 1 ML SYRINGE IVP PRN (10:24)
[2024-07-22] MEDS ORDERED: NALOXONE 0.4 MG/ML 1 ML VIAL IV PRN (10:25)
[2024-07-22] MEDS ORDERED: LORazepam 0.5 MG TAB PO PRN (13:31)
[2024-07-22] MEDS ORDERED: LORazepam 1 MG TAB PO PRN ×5 (13:31)
[2024-07-22] MEDS ORDERED: ACETAMINOPHEN TAB 325 MG TAB PO PRN (13:53)
--- NOTE | 2024-07-22 13:54 | P.HPIM ---
History of Present Illness H&P Date: 07/22/24 History of Presenting Illness: Patient is a 48-year-old male with a past medical history of abuse drinking 1/5 of liquor plus beer daily, anxiety, and nicotine dependence. He presented to the emergency department with a chief complaint of abdominal pain accompanied by nausea and vomiting. Patient reports symptoms began yesterday evening progressively worsened. He reports last alcoholic drink being 2 days ago. Patient pain is sharp and constant to epigastric region, left upper quadrant, right upper quadrant. He denies radiation of pain or anything making the pain better or worse. He reports pain with sudden onset and has been accompanied by nausea and cyclic vomiting. He denies having any fevers, chills, diaphoresis, headache, lightheadedness, dizziness, chest pain, palpitations, shortness of breath, cough or congestion, or experiencing any difficulties with or changes in urinary or bowel function. He denies hematemesis. He does report previous history of pancreatitis and states last CT was approximately 4 or 5 years ago. Patient denies having any history of alcohol withdrawal seizures or previous DTs requiring hospitalization. Upon arrival to our facility, patient underwent evaluation in the emergency department. Vital signs upon arrival show blood pressure 151/95, heart rate 66, respiratory rate 16, temp 98.0 F, and SpO2 100% on room air. Labs completed and reviewed. CBC showing leukocytosis with WBC count of 14.19. BMP unremarkable. Blood glucose 121. Lactic acid 1.7. Magnesium 1.9. Liver profile showing slightly elevated ALT of 54 otherwise normal findings. Troponin was negative at less than 0.012 and lipase was elevated at 510. Patient was admitted under services at this time for acute alcohol induced pancreatitis. Review of systems: Pertinent positives and negatives as discussed in HPI, a complete review of systems was performed and all other systems are negative. Physical exam: Vital signs reviewed and stable. General: Nontoxic, no distress and appears stated age. Derm: Skin warm and dry, normal coloration for ethnicity. Head: Atraumatic, normocephalic and symmetric. Eyes: EOM's intact, no lid lag, and anicteric sclera Mouth: no lip lesions, mucus membranes moist Cardiovascular: regular rate and rhythm with normal S1S2, no murmur, positive posterior tibial pulses bilaterally, and cap refill < 2 seconds. Lungs: Respirations even, regular, and unlabored on room air. Lungs CTA bilaterally, no rhonchi, no rales, no wheezing, and no accessory muscle usage. Abdominal: soft, bowel sounds x 4. Tenderness upon palpation diffusely throughout right upper, epigastric, and left upper. No appreciable organomegaly Ext: ROM intact. No gross muscle atrophy, no edema, no contractures Neuro: Speech clear, face symmetrical and CN II-XII grossly intact with no noted focal neuro deficits Psych: Alert and oriented to person, place, time, and situation. Appropriate and pleasant affect. Assessment and Plan of Care: Alcoholic pancreatitis Leukocytosis, secondary to above -Clear liquid diet. -Aggressive IV fluid hydration with lactated Ringer's at 150 cc/h. -Order placed for CT abdomen and pelvis without IV contrast. -Symptomatic care and pain management with Zofran 4 mg IVP every 6 hours as n eeded for nausea/vomiting. Tylenol 650 mg every 6 hours as needed for mild pain/fever, Hope 5/325 mg every 4 hours as needed for moderate pain, and morphine 4 mg IVP every 4 hours as needed for severe pain. Alcohol abuse, pending withdraw -Order placed for monitoring of CIWA scores and patient to be medicated with Ativan 0.5 mg every 4 hours as needed for CIWA score of 4-5, Ativan 1 mg every 4 hours for CIWA score of 6-7, Ativan 2 mg every 3 hours CIWA score of 8-9, and Ativan 2 mg every 2 hours forr CIWA score of 10 or greater. -Continuous IV hydration. -Thiamine 100 mg daily, and Multivitamin daily, and Folate 1 mg daily -Seizure, fall, aspiration, and elopement precautions in place. -Urine drug screen -Continued close monitoring of electrolytes and replace as needed. -Telemetry monitoring. Nicotine dependence -Recommend smoking cessation. Order placed for nicotine patch 21 mg daily. Data and imaging reviewed: As stated above in HPI The patient is admitted with an anticipated greater than 2 midnight stay for evaluation of alcoholic pancreatitis CODE STATUS: Full code DVT prophylaxis: Lovenox Discussed with: Patient, patient's significant other at bedside, RN, and ED physician Anticipated discharge date: Pending clinical course Anticipated discharge place: Home Patient was seen independently by Nurse Practitioner. This document was prepared using [employer] dictation software. Please allow for errors in aquatics director while rare they do occur. Johnson Trinh NP rendered care for this patient independently, reviewed the findings and plan as documented in the note above and agree with plan. I did not physically speak with or examine the patient on this date. Past Medical History Past Medical History: Asthma, Pulmonary Embolus (PE) Additional Past Medical History / Comment(s): current ETOH (1 pack of beer per day), current smoker, Pancreatitis, colitis History of Any Multi-Drug Resistant Organisms: None Reported Past Surgical History: Orthopedic Surgery Additional Past Surgical History / Comment(s): dental surgery. clavicle Past Anesthesia/Blood Transfusion Reactions: No Reported Reaction Past Psychological History: Anxiety Smoking Status: Current every day smoker Past Alcohol Use History: Occasional Past Drug Use History: None Reported Medications and Allergies Home Medications Medication Instructions Recorded Confirmed Type No Known Home Medications 07/22/24 07/22/24 History Allergies Allergy/AdvReac Type Severity Reaction Status Date / Time Penicillins Allergy Swelling Verified 07/22/24 10:21 Physical Exam Vitals: Vital Signs Temp Pulse Resp BP Pulse Ox 07/22/24 12:49 81 18 147/102 95 07/22/24 10:45 81 16 149/101 97 07/22/24 09:17 60 18 135/82 95 07/22/24 08:48 98.0 F 66 16 151/95 100 Intake and Output 07/21/24 07/22/24 07/22/24 22:59 06:59 14:59 Other: Weight 83.007 kg Results CBC & Chem 7: 07/22/24 09:17 07/22/24 09:17 Labs: Abnormal Lab Results - Last 24 Hours (Table) 07/22/24 07/22/24 Range/Units 09:17 09:17 WBC 14.19 H (4.50-10.00) 10*3/uL MPV 9.4 L (9.5-12.2) fL Neutrophils # 11.25 H (1.80-7.70) 10*3/uL Glucose 121 H (74-99) mg/dL ALT 54 H (4-49) U/L Lipase 510 H (23-300) U/L
--- NOTE | 2024-07-22 14:01 | CT ---
EXAMINATION TYPE: CT abdomen pelvis wo con DATE OF EXAM: 07/22/2024 COMPARISON: 03/18/2022 CLINICAL INDICATION: Male, 48 years old with history of Pancreatitis; PHH, Suspected pancreatitis. TECHNIQUE: CT scan of the abdomen and pelvis is performed without oral or IV contrast. CT DLP: 476.[address] CTDI: mGy Automated exposure control for dose reduction was used. FINDINGS: Within the limitations of a non-contrast study, the following observations are made. There is subpleural parenchymal groundglass density in the right lower lobe possibly representing ate lectasis. The gallbladder is normal without distention, wall thickening, pericholecystic fluid or gallstones. T here is no biliary ductal dilatation. There is ill definition of the pancreatic head and mild rotatory change in the peripancreatic fat con sistent with acute pancreatitis. There is no pancreatic pseudocyst formation. The liver, spleen and adrenal glands are unremarkable. There is no solid renal mass or hydronephrosis and there is homogeneous contrast enhancement of the r enal parenchyma. The caliber the abdominal aorta is normal is no retroperitoneal adenopathy or hemorr donnell. The bowel loops are normal in caliber and there is no evidence of dilatation or obstruction. No infla mmatory changes are identified in the bowel wall or mesentery. There is no free intraperitoneal air or fluid. No pelvic mass, free fluid, abscess or adenopathy. The osseous structures and soft tissues are intact. IMPRESSION: 1. Findings consistent with acute pancreatitis involving the head of the pancreas. 2. Probable mild right lower lobe atelectasis. [facility], , 07/22/2024 1:59 PM
[2024-07-22] MEDS: NICOTINE 21MG/24HR PATCH TRANSDERM SCH (15:10)
[2024-07-22] MEDS: MORPHINE SULFATE 4 MG/ML SYRINGE IV PRN (15:10)
[2024-07-22] MEDS: ONDANSETRON 4 MG/2 ML VIAL IVP PRN (15:11)
[2024-07-22] MEDS: HYDROmorphone 1 MG/ML 1 ML SYRINGE IVP STA (15:20)
[2024-07-22] MEDS: LACTATED RINGERS 1,000 ML IV SCH (16:10)
[2024-07-23 07:45] LABS: Basophils # (A) 0.04 10*3/uL (0.00-0.10); Basophils % (A) 0.3 %; Eosinophils # (A) 0.16 10*3/uL (0.04-0.35); Eosinophils % (A) 1.4 %; HCT 39.9 % (39.6-50.0); HGB 13.8 g/dL (13.0-17.0); Lymphocytes # (A) 2.56 10*3/uL (0.90-5.00); Lymphocytes % (A) 21.9 %; MCH 31.4 pg (27.0-32.0); MCHC 34.6 g/dL (32.0-37.0); MCV 90.7 fL (80.0-97.0); Mean Platelet Volume 9.5 fL (9.5-12.2); Monocytes # (A) 0.91 10*3/uL (0.20-1.00); Monocytes % (A) 7.8 %; Neutrophils % (A) 68.3 %; Platelet Count 316 10*3/uL (140-440); RDW 12.9 % (11.5-14.5); WBC 11.71 10*3/uL (4.50-10.00)
[2024-07-23] MEDS: ENOXAPARIN 40 MG/0.4 ML SYRINGE SQ SCH (07:49)
[2024-07-23] MEDS: PANTOPRAZOLE 40 MG/10 ML VIAL IV SCH (07:49)
[2024-07-23] MEDS: MULTIVITAMINS, THERA 1 EACH TAB PO SCH (07:59)
[2024-07-23] MEDS: THIAMINE 100 MG TAB PO SCH (07:59)
[2024-07-23] MEDS: FOLIC ACID 1 MG TAB PO SCH (07:59)
[2024-07-23 08:05] LABS: ALT 38 U/L (4-49); AST 29 U/L (17-59); African American GFR (CKD) >90 (>60 ml/min/1.73 sqM); Albumin 3.9 g/dL (3.5-5.0); Alkaline Phosphatase 53 U/L (38-126); Anion Gap 7 mmol/L; Blood Urea Nitrogen 7 mg/dL (9-20); Calcium 9.5 mg/dL (8.4-10.2); Carbon Dioxide 24 mmol/L (22-30); Chloride 106 mmol/L (98-107); Glucose 113 mg/dL (74-99); Non-African American GFR(CKD) >90 (>60 ml/min/1.73 sqM); Potassium 3.3 mmol/L (3.5-5.1); Sodium 137 mmol/L (137-145); Total Bilirubin 1.2 mg/dL (0.2-1.3); Total Protein 6.5 g/dL (6.3-8.2)
--- NOTE | 2024-07-23 13:23 | P.PN ---
Subjective Progress Note Date: 07/23/24 Hospital Course: Patient is a 48-year-old male with a past medical history of abuse drinking 1/5 of liquor plus beer daily, anxiety, and nicotine dependence. He presented to the emergency department with a chief complaint of abdominal pain accompanied by nausea and vomiting. Patient reports symptoms began yesterday evening progressively worsened. He reports last alcoholic drink being 2 days ago. Patient pain is sharp and constant to epigastric region, left upper quadrant, right upper quadrant. He denies radiation of pain or anything making the pain better or worse. He reports pain with sudden onset and has been accompanied by nausea and cyclic vomiting. He denies having any fevers, chills, diaphoresis, headache, lightheadedness, dizziness, chest pain, palpitations, shortness of breath, cough or congestion, or experiencing any difficulties with or changes in urinary or bowel function. He denies hematemesis. He does report previous history of pancreatitis and states last CT was approximately 4 or 5 years ago. Patient denies having any history of alcohol withdrawal seizures or previous DTs requiring hospitalization. Upon arrival to our facility, patient underwent evaluation in the emergency department. Vital signs upon arrival show blood pressure 151/95, heart rate 66, respiratory rate 16, temp 98.0 F, and SpO2 100% on room air. Labs completed and reviewed. CBC showing leukocytosis with WBC count of 14.19. BMP unremarkable. Blood glucose 121. Lactic acid 1.7. Magnesium 1.9. Liver profile showing slightly elevated ALT of 54 otherwise nor mal findings. Troponin was negative at less than 0.012 and lipase was elevated at 510. Patient was admitted under services at this time for acute alcohol induced pancreatitis. Physical exam: Patient seen and fully evaluated at bedside this morning. He is doing well. T olerating clear liquid diet. Patient reports pain has been controlled he has required 3 doses of IV pain medication over the past 24 hours. Will advance diet and monitor how patient tolerates. Vital signs reviewed and stable. General: Nontoxic, no distress and appears stated age. Derm: Skin warm and dry, normal coloration for ethnicity. Head: Atraumatic, normocephalic and symmetric. Eyes: EOM's intact, no lid lag, and anicteric sclera Mouth: no lip lesions, mucus membranes moist Cardiovascular: regular rate and rhythm with normal S1S2, no murmur, positive posterior tibial pulses bilaterally, and cap refill < 2 seconds. Lungs: Respirations even, regular, and unlabored on room air. Lungs CTA bilaterally, no rhonchi, no rales, no wheezing, and no accessory muscle usage. Abdominal: soft, bowel sounds x 4. Tenderness upon palpation diffusely to epigastric region. No appreciable organomegaly Ext: ROM intact. No gross muscle atrophy, no edema, no contractures Neuro: Speech clear, face symmetrical and CN II-XII grossly intact with no noted focal neuro deficits Psych: Alert and oriented to person, place, time, and situation. Appropriate and pleasant affect. Assessment and Plan of Care: Alcoholic pancreatitis Leukocytosis, secondary to above -Clear liquid diet, will advance to low-fat diet with lunch -Continue IV fluid hydration with lactated Ringer's at 150 cc/h. -Order placed for CT abdomen and pelvis without IV contrast. -Symptomatic care and pain management with Zofran 4 mg IVP every 6 hours as needed for nausea/vomiting. Tylenol 650 mg every 6 hours as needed for mild pain/fever, Vaughn 5/325 mg every 4 hours as needed for moderate pain, and morphine 4 mg IVP every 4 hours as needed for severe pain. Alcohol abuse, pending withdraw -Order placed for monitoring of CIWA scores and patient to be medicated with Ativan 0.5 mg every 4 hours as needed for CIWA score of 4-5, Ativan 1 mg every 4 hours for CIWA score of 6-7, Ativan 2 mg every 3 hours CIWA score of 8-9, and Ativan 2 mg every 2 hours forr CIWA score of 10 or greater. -Continuous IV hydration. -Thiamine 100 mg daily, and Multivitamin daily, and Folate 1 mg daily -Seizure, fall, aspiration, and elopement precautions in place. -Urine drug screen -Continued close monitoring of electrolytes and replace as needed. -Telemetry monitoring. Nicotine dependence -Recommend smoking cessation. Order placed for nicotine patch 21 mg daily. Data and imaging reviewed: Morning labs reviewed. CBC showing improvement of leukocytosis with WBC count decreasing from 14.19 down to 11.71 this morning. BMP showing hypokalemia with potassium of 3.3. Blood glucose 113. Magnesium 1.9. Liver profile unremarkable. Vital signs reviewed. Blood pressure 133/77, heart rate 60, respiratory rate 16, temp 98.8 F, and SpO2 of 100% on room air CODE STATUS: Full code DVT prophylaxis: Lovenox Discussed with: Patient, patient's significant other at bedside, RN, and ED physician Anticipated discharge date: Pending clinical course Anticipated discharge place: Home Patient was seen independently by Nurse Practitioner. This document was prepared using [employer] dictation software. Please allow for errors in meat wrapper while rare they do occur. Johnson Trinh NP rendered care for this patient independently, reviewed the findings and plan as documented in the note above and agree with plan. I did not physically speak with or examine the patient on this date. Objective - Vital Signs Vital signs: Vital Signs Temp 98.8 F 07/23/24 02:00 Pulse 92 07/23/24 02:00 Resp 17 07/23/24 02:00 BP 128/82 07/23/24 02:00 Pulse Ox 99 07/23/24 02:00 FiO2 Intake & Output 07/22/24 07/23/24 07/23/24 18:59 06:59 18:59 Weight 83.007 kg Other: Voiding Method Toilet Urinal # Voids 0 - Labs CBC & Chem 7: 07/23/24 07:19 07/23/24 07:19 Labs: Abnormal Lab Results - Last 24 Hours (Table) 07/22/24 07/22/24 Range/Units 09:17 09:17 WBC 14.19 H (4.50-10.00) 10*3/uL MPV 9.4 L (9.5-12.2) fL Neutrophils # 11.25 H (1.80-7.70) 10*3/uL Glucose 121 H (74-99) mg/dL ALT 54 H (4-49) U/L Lipase 510 H (23-300) U/L
[2024-07-23] MEDS: POTASSIUM CHLORIDE ER 20 MEQ TAB.ER PO STA (15:17)
[2024-07-24 05:38] LABS: Basophils # (A) 0.07 10*3/uL (0.00-0.10); Basophils % (A) 0.6 %; Eosinophils # (A) 0.37 10*3/uL (0.04-0.35); Eosinophils % (A) 3.4 %; HCT 38.5 % (39.6-50.0); HGB 13.3 g/dL (13.0-17.0); Lymphocytes # (A) 3.71 10*3/uL (0.90-5.00); Lymphocytes % (A) 34.2 %; MCH 31.4 pg (27.0-32.0); MCHC 34.5 g/dL (32.0-37.0); Mean Platelet Volume 9.5 fL (9.5-12.2); Monocytes # (A) 0.84 10*3/uL (0.20-1.00); Monocytes % (A) 7.7 %; Neutrophils # (A) 5.82 10*3/uL (1.80-7.70); Neutrophils % (A) 53.8 %; Platelet Count 313 10*3/uL (140-440); RBC 4.23 10*6/uL (4.40-5.60); RDW 12.7 % (11.5-14.5); WBC 10.84 10*3/uL (4.50-10.00)
[2024-07-24 05:48] LABS: African American GFR (CKD) >90 (>60 ml/min/1.73 sqM); Anion Gap 6 mmol/L; Blood Urea Nitrogen 6 mg/dL (9-20); Calcium 9.3 mg/dL (8.4-10.2); Carbon Dioxide 26 mmol/L (22-30); Chloride 102 mmol/L (98-107); Glucose 93 mg/dL (74-99); Magnesium 1.9 mg/dL (1.6-2.3); Non-African American GFR(CKD) >90 (>60 ml/min/1.73 sqM); Potassium 3.8 mmol/L (3.5-5.1); Sodium 134 mmol/L (137-145)
[2024-07-24] MEDS: HYDROcodone/APAP 5-325MG 1 EACH TAB PO PRN (08:21)
--- NOTE | 2024-07-24 15:45 | P.PN ---
Subjective Progress Note Date: 07/24/24 Hospital Course: Patient is a 48-year-old male with a past medical history of abuse drinking 1/5 of liquor plus beer daily, anxiety, and nicotine dependence. He presented to the emergency department with a chief complaint of abdominal pain accompanied by nausea and vomiting. Patient reports symptoms began yesterday evening progressively worsened. He reports last alcoholic drink being 2 days ago. Patient pain is sharp and constant to epigastric region, left upper quadrant, right upper quadrant. He denies radiation of pain or anything making the pain better or worse. He reports pain with sudden onset and has been accompanied by nausea and cyclic vomiting. He denies having any fevers, chills, diaphoresis, headache, lightheadedness, dizziness, chest pain, palpitations, shortness of breath, cough or congestion, or experiencing any difficulties with or changes in urinary or bowel function. He denies hematemesis. He does report previous history of pancreatitis and states last CT was approximately 4 or 5 years ago. Patient denies having any history of alcohol withdrawal seizures or previous DTs requiring hospitalization. Upon arrival to our facility, patient underwent evaluation in the emergency department. Vital signs upon arrival show blood pressure 151/95, heart rate 66, respiratory rate 16, temp 98.0 F, and SpO2 100% on room air. Labs completed and reviewed. CBC showing leukocytosis with WBC count of 14.19. BMP unremarkable. Blood glucose 121. Lactic acid 1.7. Magnesium 1.9. Liver profile showing slightly elevated ALT of 54 otherwise nor mal findings. Troponin was negative at less than 0.012 and lipase was elevated at 510. Patient was admitted under services at this time for acute alcohol induced pancreatitis. CT abdomen and pelvis showing findings consistent with acute pancreatitis involving the head of the pancreas with right lower lobe atelectasis. Physical exam: Patient seen and fully evaluated at bedside this morning. Patient tolerated clear liquid diet over the past 24 hours and this morning for breakfast was advanced to low-fat diet. Patient reports shortly after again immediately experiencing severe epigastric and left upper quadrant pain, nausea, and vomiting. Diet decreased back down to clear liquids. Vital signs reviewed and stable. General: Nontoxic, no distress and appears stated age. Derm: Skin warm and dry, normal coloration for ethnicity. Head: Atraumatic, normocephalic and symmetric. Eyes: EOM's intact, no lid lag, and anicteric sclera Mouth: no lip lesions, mucus membranes moist Cardiovascular: regular rate and rhythm with normal S1S2, no murmur, positive posterior tibial pulses bilaterally, and cap refill < 2 seconds. Lungs: Respirations even, regular, and unlabored on room air. Lungs CTA bilaterally, no rhonchi, no rales, no wheezing, and no accessory muscle usage. Abdominal: soft, bowel sounds x 4. Tenderness upon palpation diffusely to epigastric region. No appreciable organomegaly Ext: ROM intact. No gross muscle atrophy, no edema, no contractures Neuro: Speech clear, face symmetrical and CN II-XII grossly intact with no noted focal neuro deficits Psych: Alert and oriented to person, place, time, and situation. Appropriate and pleasant affect. Assessment and Plan of Care: Alcoholic pancreatitis Leukocytosis, secondary to above -Clear liquid diet, will advance to low-fat diet with lunch -Continue IV fluid hydration with lactated Ringer's at a decreased rate of 75 cc/h -CT abdomen and pelvis showing findings consistent with acute pancreatitis involving the head of the pancreas with right lower lobe atelectasis. -Symptomatic care and pain management with Zofran 4 mg IVP every 6 hours as needed for nausea/vomiting. Tylenol 650 mg every 6 hours as needed for mild pain/fever, Richardson 5/325 mg every 4 hours as needed for moderate pain, and morphine 4 mg IVP every 4 hours as needed for severe pain. Alcohol abuse, pending withdraw - Continue monitoring of CIWA scores and patient to be medicated with Ativan 0.5 mg every 4 hours as needed for CIWA score of 4-5, Ativan 1 mg every 4 hours for CIWA score of 6-7, Ativan 2 mg every 3 hours CIWA score of 8-9, and Ativan 2 mg every 2 hours forr CIWA score of 10 or greater. -Continuous IV hydration. -Thiamine 100 mg daily, and Multivitamin daily, and Folate 1 mg daily -Seizure, fall, aspiration, and elopement precautions in place. -Urine drug screen -Continued close monitoring of electrolytes and replace as needed. -Telemetry monitoring. Nicotine dependence -Recommend smoking cessation. Order placed for nicotine patch 21 mg daily. Data and imaging reviewed: Morning labs reviewed. CBC showing improvement of leukocytosis with WBC count decreasing from 14.19 down to 10.84 this morning. BMP showing mild hyponatremia with sodium of 134 otherwise normal findings. Blood glucose 93. Magnesium 1.9. Vital signs reviewed. Blood pressure 135/77, heart rate 64, respiratory rate 16, temp 98.3 F, and SpO2 of 98% on room air. - CT abdomen and pelvis showing findings consistent with acute pancreatitis involving the head of the pancreas with right lower lobe atelectasis. CODE STATUS: Full code DVT prophylaxis: Lovenox Discussed with: Patient, patient's significant other at bedside, and RN Anticipated discharge date: Pending clinical course Anticipated discharge place: Home Patient was seen independently by Nurse Practitioner. This document was prepared using [employer] dictation software. Please allow for errors in cpas while rare they do occur. Johnson Trinh NP rendered care for this patient independently, reviewed the findi ngs and plan as documented in the note above and agree with plan. I did not physically speak with or examine the patient on this date. Objective - Vital Signs Vital signs: Vital Signs Temp 98.3 F 07/24/24 07:05 Pulse 64 07/24/24 07:05 Resp 16 07/24/24 07:05 BP 135/77 07/24/24 07:05 Pulse Ox 98 07/24/24 07:05 FiO2 Intake & Output 07/23/24 07/24/24 07/24/24 18:59 06:59 18:59 Intake Total 960 1500 Balance 960 1500 Intake: Intake, IV Titration 1500 Amount Lactated Ringers 1,000 ml 1500 @ 150 mls/hr IV .[id number] [facility] Rx#:[id number] Oral 960 Other: Voiding Method Toilet Toilet Urinal Urinal # Voids 2 2 - Labs CBC & Chem 7: 07/24/24 04:50 07/24/24 04:50 Labs: Abnormal Lab Results - Last 24 Hours (Table) 07/24/24 07/24/24 Range/Units 04:50 04:50 WBC 10.84 H (4.50-10.00) 10*3/uL RBC 4.23 L (4.40-5.60) 10*6/uL Hct 38.5 L (39.6-50.0) % Eosinophils # 0.37 H (0.04-0.35) 10*3/uL Sodium 134 L (137-145) mmol/L BUN 6 L (9-20) mg/dL
[2024-07-25 08:07] VITALS: BP 134/74; PULSE 64; RESP 16; TEMP 97.9
[2024-07-25 09:18] LABS: HCT 39.4 % (39.6-50.0); HGB 13.7 g/dL (13.0-17.0); MCH 31.2 pg (27.0-32.0); MCHC 34.8 g/dL (32.0-37.0); MCV 89.7 FL (80.0-97.0); Mean Platelet Volume 9.6 FL (9.5-12.2); NRBC Per 100 WBC 0 X 10*3/uL (0.00-0.01); Platelet Count 324 X 10*3/uL (140-440); RBC 4.39 X 10*6/uL (4.40-5.60); RDW 12.2 % (11.5-14.5); WBC 10.86 X 10*3/uL (4.50-10.00)
[2024-07-25 09:49] LABS: ALT 29 U/L (10-49); AST 23 U/L (14-35); Albumin 3.9 g/dL (3.8-4.9); Albumin/Globulin Ratio 1.86 Ratio (1.60-3.17); Alkaline Phosphatase 41 U/L (41-126); BUN/Creat Ratio 7.14 Ratio (12.00-20.00); Calcium 9.1 mg/dL (8.7-10.3); Carbon Dioxide 23.9 mmol/L (21.6-31.8); Chloride 102 mmol/L (96-109); Globulin 2.1 g/dL (1.6-3.3); Glucose 102 mg/dL (70-110); Magnesium 1.9 mg/dL (1.5-2.4); Potassium 3.3 mmol/L (3.5-5.5); Sodium 138 mmol/L (135-145); Total Bilirubin 0.8 mg/dL (0.3-1.2)
--- NOTE | 2024-07-25 17:19 | P.DS ---
Providers Date of admission: 07/22/24 10:26 Expected date of discharge: 07/25/24 Attending physician: Tara Estrada MD Primary care physician: Stated None Hospital Course: Discharge Diagnosis: Alcoholic pancreatitis. Patient treated with aggressive IV fluid hydration, diet slowly advanced and he is tolerating a low-fat diet. Pain is resolved patient reports resolution of abdominal pain and denies any further episodes of nausea or vomiting. Patient medically optimized for discharge and strongly recommended to avoid any and all alcohol use. He was provided with outpatient resources available to him including local AA meetings, inpatient drug and alcohol rehabilitation facilities, and community resources. Patient medically optimized for discharge at this time. Leukocytosis, secondary to above Alcohol abuse Nicotine dependence Hospital Course: Patient is a 48-year-old male with a past medical history of abuse drinking 1/5 of liquor plus beer daily, anxiety, and nicotine dependence. He presented to the emergency department with a chief complaint of abdominal pain accompanied by nausea and vomiting. Patient reports symptoms began yesterday evening progressively worsened. He reports last alcoholic drink being 2 days ago. Patient pain is sharp and constant to epigastric region, left upper quadrant, right upper quadrant. He denies radiation of pain or anything making the pain better or worse. He reports pain with sudden onset and has been accompanied by nausea and cyclic vomiting. He denies having any fevers, chills, diaphoresis, headache, lightheadedness, dizziness, chest pain, palpitations, shortness of breath, cough or congestion, or experiencing any difficulties with or changes in urinary or bowel function. He denies hematemesis. He does report previous history of pancreatitis and states last CT was approximately 4 or 5 years ago. Patient denies having any history of alcohol withdrawal seizures or previous DTs requiring hospitalization. Upon arrival to our facility, patient underwent evaluation in the emergency department. Vital signs upon arrival show blood pressure 151/95, heart rate 66, respiratory rate 16, temp 98.0 F, and SpO2 100% on room air. Labs completed and reviewed. CBC showing leukocytosis with WBC count of 14.19. BMP unremarkable. Blood glucose 121. Lactic acid 1.7. Magnesium 1.9. Liver profile showing slightly elevated ALT of 54 otherwise normal findings. Troponin was negative at less than 0.012 and lipase was elevated at 510. Patient was admitted under services at this time for acute alcohol induced pancreatitis. CT abdomen and pelvis showing findings consistent with acute pancreatitis involving the head of the pancreas with right lower lobe atelectasis. Patient treated with aggressive IV fluid hydration, diet slowly advanced and he is tolerating a low-fat diet. Pain is resolved patient reports resolution of abdominal pain and denies any further episodes of nausea or vomiting. Patient medically optimized for discharge and strongly recommended to avoid any and all alcohol use. He was provided with outpatient resources available to him including local AA meetings, inpatient drug and alcohol rehabilitation facilities, and community resources. Patient medically optimized for discharge at this time. Physical exam: Vital signs reviewed and stable. General: Nontoxic, no distress and appears stated age. Derm: Skin warm and dry, normal coloration for ethnicity. Head: Atraumatic, normocephalic and symmetric. Eyes: EOM's intact, no lid lag, and anicteric sclera Mouth: no lip lesions, mucus membranes moist Cardiovascular: regular rate and rhythm with normal S1S2, no murmur, positive posterior tibial pulses bilaterally, and cap refill < 2 seconds. Lungs: Respirations even, regular, and unlabored on room air. Lungs CTA bilaterally, no rhonchi, no rales, no wheezing, and no accessory muscle usage. Abdominal: soft, bowel sounds x 4. Nontender upon palpation. No appreciable organomegaly Ext: ROM intact. No gross muscle atrophy, no edema, no contractures Neuro: Speech clear, face symmetrical and CN II-XII grossly intact with no noted focal neuro deficits Psych: Alert and oriented to person, place, time, and situation. Appropriate and pleasant affect. A total of 32 minutes of time were spent preparing this complex discharge summary. Pt was discharged on 07/25/2024 at 2:06 PM. Patient was seen independently by Nurse Practitioner. This document was prepared using [employer] dictation software. Please allow for errors in surveillance systems engineer while rare they do occur. Johnson Trinh NP rendered care for this patient independently, reviewed the findings and plan as documented in the note above. I did not physically speak with or examine the patient on this date. . Patient Condition at Discharge: Stable Plan - Discharge Summary New Discharge Prescriptions: New Folic Acid 1 mg PO DAILY 30 Days #30 tab Multivitamins, Thera [Multivitamin (formulary)] 1 each PO DAILY 30 Days #30 tab Pantoprazole [Protonix] 40 mg PO DAILY 30 Days #30 tab Thiamine [Vitamin B-1] 100 mg PO DAILY 30 Days #30 tab Discharge Medication List Folic Acid 1 mg PO DAILY 30 Days #30 tab 07/25/24 [Rx] Multivitamins, Thera [Multivitamin (formulary)] 1 each PO DAILY 30 Days #30 tab 07/25/24 [Rx] Pantoprazole [Protonix] 40 mg PO DAILY 30 Days #30 tab 07/25/24 [Rx] Thiamine [Vitamin B-1] 100 mg PO DAILY 30 Days #30 tab 07/25/24 [Rx] Follow up Appointment(s)/Referral(s): Azar Vitale DO [REFERRING] - 1 Week [facility] [NON-STAFF] - 1 Week Patient Instructions/Handouts: Pancreatitis (DC), Abuse of Alcohol (DC) Activity/Diet/Wound Care/Special Instructions: Activity: As tolerated. Take breaks as needed. Diet: Continue low-fat diet. Special Instructions: As discussed with you at bedside, strongly recommend cessation of any and all alcohol use. Thank you for allowing us to participate in your care, it was truly a pleasure having you for our patient!!! Discharge/Stand Alone Forms: AA [facility], Community Resources, Outpatient Counseling, Inp Substance Abuse Facilities, Area PCPs Discharge Disposition: HOME SELF-CARE
== END 2024-07-25 14:30 | disposition home or self-care (01) | DRG 282 ==
LOC: EC 08:46 → 1SOBS 10:25 → OBSVTOIN 10:26 → 1SOBS 13:55 → 6NMEDSUR 07-24 05:22
PROVIDERS: ADMIT Internal Medicine; ATTEND Internal Medicine
DX: K85.20 Alcohol induced acute pancreatitis without necrosis or infection (principal); F10.10 Alcohol abuse, uncomplicated; F17.200 Nicotine dependence, unspecified, uncomplicated; E87.1 Hypo-osmolality and hyponatremia; J98.11 Atelectasis; E87.6 Hypokalemia; Z88.0 Allergy status to penicillin; Z86.711 Personal history of pulmonary embolism
CPT/HCPCS: 36415; 74176; 80048; 80053; 82150; 83605; 83690; 83735; 84100; 84484; 85025; 85027; 93005; 96361; 96374; 96375; 99285